=== PATIENT | female | born 1945 | race Caucasian/White ===

== ENCOUNTER 2016-12-25 07:27 | Day surgery (SDC) | payer OTHER ==
[2016-12-22 17:59] VITALS: BMI 29.2
[2016-12-25] MEDS ORDERED: ceFAZolin SODIUM 1 GM VIAL ONE (07:58)
[2016-12-25] MEDS ORDERED: PROPOFOL 20 ML ONE (07:58)
[2016-12-25] MEDS ORDERED: LIDOCAINE HCL/PF 2% SDV 5ML VIAL ONE (07:58)
[2016-12-25] MEDS ORDERED: MIDAZOLAM HCL 2 MG/2 ML SINGLE DOSE VIAL ONE (07:58)
[2016-12-25] MEDS ORDERED: DESFLURANE GAS 240 ML BOTTLE IH ONE (08:00)
[2016-12-25] MEDS ORDERED: ROCURONIUM BROMIDE 50 MG/5 ML VIAL ONE ×2 (08:58→09:26)
[2016-12-25] MEDS ORDERED: ceFAZolin SODIUM 1 GM VIAL IVPB ONE (09:05)
[2016-12-25] MEDS ORDERED: DEXAMETHASONE SOD PHOSPHATE 4 MG/1 ML VIAL ONE (09:26)
[2016-12-25] MEDS ORDERED: GLYCOPYRROLATE 0.2 MG/1 ML VIAL ONE (11:05)
[2016-12-25] MEDS ORDERED: NEOSTIGMINE METHYLSULFATE 0.5 MG/ML - 10 ML MDV ONE (11:06)
[2016-12-25] MEDS: HYDROmorphone HCL CARPU-JECT 1 MG/1 ML DISP.SYRIN IVPUSH PRN ×4 (11:22→11:52)
[2016-12-25] MEDS ORDERED: ONDANSETRON 4 MG/2 ML VIAL IVPUSH PRN (11:23)
[2016-12-25] MEDS ORDERED: HYDROmorphone HCL CARPU-JECT 2 MG/1 ML DISP.SYRIN ONE ×2 (11:27→11:45)
[2016-12-25] MEDS ORDERED: ACETAMINOPHEN INJECTION 100 ML IVPB ONE (11:42)
[2016-12-25] MEDS: ACETAMINOPHEN 1000 MG/100 ML VIAL (NON FORMULARY) IVPB PRN ×2 (12:00→21:15)
[2016-12-25] MEDS ORDERED: ceFAZolin SODIUM 1 GM VIAL IVPB SCH (12:00)
[2016-12-25] MEDS ORDERED: HYDROmorphone *PCA* 10MG/50ML DISP.SYRIN PCA ONE (12:09)
[2016-12-25] MEDS ORDERED: MAGNESIUM HYDROX 2400MG/30ML ORAL SUSPENSION 30 ML CUP PO PRN (12:15)
[2016-12-25] MEDS ORDERED: HYDROmorphone *PCA* 10MG/50ML DISP.SYRIN PCA SCH (12:15)
--- NOTE | 2016-12-25 12:37 | OP ---
Operative Note - Note: Operative Date: 12/25/16 Pre-Operative Diagnosis: painful hardware bilateral hips Operation: Right hip removal of internal fixator, Left hip removal of cannulated screws Post-Operative Diagnosis: Same as Pre-op Surgeon: Alex Valderrama I Glass Sander Belt: Juliana Christy Anesthesiologist/RAIL CAR DRIVER: Shanae See Anesthesia: General Specimens Removed: Right hip IM nail and screw, Left hip cannulated screws X3 Estimated Blood Loss (mls): 75 Drains & Tubes with Location: Right hip Fluid Volume Replaced (mls): 1,000 Operative Report Dictated: Yes
--- NOTE | 2016-12-25 12:39 | SURG ---
Surgery Waste Handling Technician Note Waste Handling Technician: Juliana Christy PA-C Date of Service: 12/25/16 Diagnosis: Painful hardware bilateral hips Procedure: Right hip removal of internal fixator, Left hip removal of cannulated screws I was present for the entirety of the operative procedure. For further detail, please refer to operative report. Visit type - Case Type Case Type: Scheduled Admission - Emergency Emergency Visit: No - New patient This patient is new to me today: Yes Date on this admission: 12/25/16
[2016-12-25] MEDS ORDERED: LORazepam 2 MG/ML SDV VIAL IVPUSH PRN (12:54)
[2016-12-25] MEDS: LACTATED RINGERS SOLUTION 1,000 ML IV SCH ×2 (13:30→22:50)
--- NOTE | 2016-12-25 13:52 | PN ---
Teaching Attending Note Name of Resident: Basilio Moncada ATTENDING PHYSICIAN STATEMENT I saw and evaluated the patient. I reviewed the resident's note and discussed the case with the resident. I agree with the resident's findings and plan as documented. SUBJECTIVE: OBJECTIVE: Vital Signs Period Temp Pulse Resp BP Sys/Gomez Pulse Ox Last 24 Hr 98.0 F-98.0 F 62-72 16-20 93-163/52-87 96-100 Home Medications Medication Instructions Recorded Acetaminophen [Tylenol] 650 mg PO PRN PRN 12/25/16 Aspirin [Aspirin EC] 81 mg PO DAILY 12/25/16 Carvedilol [Coreg] 6.25 mg PO BID 12/25/16 Citalopram Hydrobromide [Celexa -] 40 mg PO DAILY 12/25/16 Clopidogrel Bisulfate [Plavix -] 75 mg PO DAILY 12/25/16 Fentanyl 50 mcg TD ASDIR 12/25/16 Hydralazine HCl [Apresoline -] 25 mg PO DAILY 12/25/16 Levetiracetam [Keppra -] 500 mg PO BID 12/25/16 Magnesium Hydrox 2400MG/30Ml [Milk 30 ml PO PRN 12/25/16 of Magnesia -] Morphine 15 mg PO BID 12/25/16 Ondansetron HCl [Zofran] 4 mg PO PRN PRN 12/25/16 Protonix - 40 mg PO DAILY 12/25/16 Trazodone HCl [Desyrel -] 2 cap PO HS 12/25/16 Laboratory Tests 12/25/16 12/25/16 07:46 07:46 Blood Type A POSITIVE A POSITIVE Antibody Screen Negative ASSESSMENT AND PLAN:
--- NOTE | 2016-12-25 14:30 | CONSULT ---
Consultation: REQUESTING PROVIDER: CONSULT REQUEST: We have been asked to medically evaluate this patient for management of medical co-morbid conditions post-op HISTORY OF PRESENT ILLNESS: 71 yo F with PMHx of CAD(s/p stents), Hep C, Seizure disorder, colon ca. and HTN presents for removal of hardware. She states for quite some time she has had this pain in her left hip and the desicion was made to remove hardware. She does not mention any recent infection. Her comorbid conditions have been well managed according to her. She mentions that her Morphine was recently reduced and would like to go back to previous dosage. She denies CP,VICTORIA,SOB, palpitations , fever, chill, n/v. PMHx:As above. PSX:hemicolectomy, multiple lysis of adhesions, hip and back surgery Social Hx:correction resident. smoke: 100 pack yr history Drink : h/o abuse not current drinker Drugs: denies REVIEW OF SYSTEMS: CONSTITUTIONAL: Absent: fever, chills, diaphoresis, generalized weakness, malaise, loss of appetite, weight change HEENT: Absent: rhinorrhea, nasal congestion, throat pain, throat swelling, difficulty swallowing, mouth swelling, ear pain, eye pain, visual changes CARDIOVASCULAR: Absent: chest pain, syncope, palpitations, irregular heart rate, lightheadedness , peripheral edema RESPIRATORY: Absent: cough, shortness of breath, dyspnea with exertion, orthopnea, wheezing, stridor, hemoptysis GASTROINTESTINAL: Absent: abdominal pain, abdominal distension, nausea, vomiting, diarrhea, constipation, melena, hematochezia GENITOURINARY: Absent: dysuria, frequency, urgency, hesitancy, hematuria, flank pain, genital pain MUSCULOSKELETAL: joint swelling, back pain Absent: myalgia, arthralgia, , neck pain SKIN: Absent: rash, itching, pallor HEMATOLOGIC/IMMUNOLOGIC: Absent: easy bleeding, easy bruising, lymphadenopathy, frequent infections ENDOCRINE: Absent: unexplained weight gain, unexplained weight loss, heat intolerance, cold intolerance NEUROLOGIC: Absent: headache, focal weakness or paresthesias, dizziness, unsteady gait, seizure, mental status changes, bladder or bowel incontinence PSYCHIATRIC: Absent: anxiety, depression, suicidal or homicidal ideation, hallucinations. PHYSICAL EXAMINATION Vital Signs - 24 hr 12/25/16 12/25/16 12/25/16 08:11 08:15 11:19 Temperature 98.0 F 98.0 F Pulse Rate 69 71 Respiratory 20 18 Rate Blood Pressure 137/71 163/87 O2 Sat by Pulse 96 99 Oximetry (%) 12/25/16 12/25/16 12/25/16 11:35 11:50 12:05 Temperature Pulse Rate 72 68 68 Respiratory 16 17 16 Rate Blood Pressure 156/70 157/74 161/79 O2 Sat by Pulse 100 99 99 Oximetry (%) 12/25/16 12/25/16 12/25/16 12:15 12:20 12:35 Temperature Pulse Rate 70 70 63 Respiratory 16 16 16 Rate Blood Pressure 146/63 146/63 103/57 O2 Sat by Pulse 99 98 Oximetry (%) 12/25/16 12/25/16 12/25/16 12:45 12:50 13:05 Temperature Pulse Rate 62 62 69 Respiratory 16 16 17 Rate Blood Pressure 93/52 93/52 97/50 O2 Sat by Pulse 98 98 Oximetry (%) 12/25/16 12/25/16 12/25/16 13:20 13:30 14:04 Temperature 98.5 F 98.5 F Pulse Rate 68 66 71 Respiratory 16 16 16 Rate Blood Pressure 103/60 120/53 117/71 O2 Sat by Pulse 98 Oximetry (%) GENERAL: AAOx3, NAD HEAD: NC/AT EYES:PERRLA,EOMI, sclera anicteric, conjunctiva clear. No lid lag. EARS, NOSE, THROAT: Moist mucous membranes. NECK: supple, NO JVD LUNGS:CTAB, No wheezes, and no crackles. No accessory muscle use. HEART: RRR, normal S1 and S2 NO M/G/R ABDOMEN: Soft, nontender, not distended, decreased bowel sounds, ventral surgical scars , no guarding, no rebound, no masses. No hepatomegaly or splenomegaly. MUSCULOSKELETAL: decreased ROM of left hip. Dressing appears clean and dry. No CVA tenderness. UPPER EXTREMITIES: 2+ pulses, warm, well-perfused. No cyanosis. No clubbing. Cap refill <2 seconds. No peripheral edema. LOWER EXTREMITIES: 2+ pulses, warm, well-perfused. No calf tenderness. No peripheral edema. NEUROLOGICAL: Cranial nerves II-XII intact. Normal speech. PSYCHIATRIC: lethargic SKIN: Warm, dry, normal turgor, no rashes or lesions noted. Laboratory Results - last 24 hr 12/25/16 12/25/16 07:46 07:46 Blood Type A POSITIVE A POSITIVE Antibody Screen Negative Active Medications Generic Name Dose Route Start Last Admin Trade Name Debbie PRN Reason Stop Dose Admin Acetaminophen 1,000 mg 12/25/16 11:24 12/25/16 12:00 Ofirmev Injection - IVPB 1,000 mg Q6H PRN Administration FEVER OR PAIN Aspirin 81 mg 12/26/16 10:00 Ecotrin - PO DAILY APURVA Carvedilol 6.25 mg 12/25/16 22:00 Coreg - PO BID APURVA Cefazolin Sodium 1 gm 12/25/16 12:00 Ancef - IVPB Q8H-IV APURVA Citalopram Hydrobromide 40 mg 12/26/16 10:00 Celexa - PO DAILY APURVA Clopidogrel Bisulfate 75 mg 12/26/16 10:00 Plavix - PO DAILY APURVA Hydralazine HCl 25 mg 12/26/16 10:00 Apresoline - PO DAILY APURVA Hydromorphone HCl 0.2 mg 12/25/16 12:15 Dilaudid Adult Care Manager - HIRED HELP 01/01/17 12:10 HIRED HELP APURVA Protocol Lactated Ringer's 1,000 mls @ 125 mls/hr 12/25/16 11:30 12/25/16 13:30 Lactated Ringers Solution IV 0 mls ASDIR APURVA Administration Levetiracetam 500 mg 12/25/16 22:00 Keppra - PO BID APURVA Lorazepam 1 mg 12/25/16 12:54 Ativan Injection - IVPUSH 12/26/16 12:08 Q6H PRN ANXIETY Magnesium Hydroxide 30 ml 12/25/16 12:15 Milk Of Magnesia - PO PRN PRN Ondansetron HCl 4 mg 12/25/16 11:23 Zofran Injection IVPUSH Q6H PRN NAUSEA AND/OR VOMITING Pantoprazole Sodium 40 mg 12/26/16 10:00 Protonix - PO DAILY APURVA Trazodone HCl 100 mg 12/25/16 22:00 Desyrel - PO HS [facility] ASSESSMENT/PLAN: 71 yo F with PMHx of CAD(s/p stents), Hep C, Seizure disorder and HTN presents for removal of hardware admitted for 23hr satellite admission. Dispo: We will continue to follow the patient. Thank you for this consultative opportunity. Problem List - Problems (1) Right hip pain Assessment/Plan: s/p removal of hardware. * HIRED HELP pump for pain control. (2) Chronic pain Assessment/Plan: Chronic low back pain. * HIRED HELP pump for pain. (3) HTN (hypertension) Assessment/Plan: Will continue home regimen with hold parameters. * Carvedilol (Coreg -) 6.25 mg PO BID * Hydralazine HCl (Apresoline -) 25 mg PO (4) Seizure disorder Assessment/Plan: NO seizure activity for 6yrs * Continue Keppra 500mg BID (5) CAD (coronary artery disease) Assessment/Plan: * Aspirin (Ecotrin -) 81 mg PO DAILY * Clopidogrel Bisulfate (Plavix -) 75 mg PO DAILY Visit type - Emergency Visit Emergency Visit: Yes Care time: The patient presented to the Emergency Department on the above date and was hospitalized for further evaluation of their emergent condition. - New Patient This patient is new to me today: Yes Date on this admission: 12/25/16 - Critical Care Critical Care patient: No
[2016-12-25] MEDS ORDERED: PT OWN MED DRAWER 7, Y5N ONE (17:00)
[2016-12-25] MEDS: CEFAZOLIN 1 GM in DEXTROSE 5%-WATER - 50 ML IVPB SCH (18:04)
[2016-12-25] MEDS: traZODone HCL 50 MG TABLET (FP) PO SCH (21:10)
[2016-12-25] MEDS: CARVEDILOL 6.25 MG TABLET (FP) PO SCH (21:10)
[2016-12-25] MEDS: levETIRAcetam 500 MG TABLET (FP) PO SCH (21:10)
[2016-12-26] MEDS ORDERED: HYDROmorphone *PCA* 10MG/50ML DISP.SYRIN PCA SCH ×2 (00:20→00:30)
[2016-12-26] MEDS: CEFAZOLIN 1 GM in DEXTROSE 5%-WATER - 50 ML IVPB SCH ×2 (01:25→12:26)
[2016-12-26] MEDS: LACTATED RINGERS SOLUTION 1,000 ML IV SCH (06:50)
--- NOTE | 2016-12-26 09:01 | PN ---
Physical Exam: SUBJECTIVE: Patient seen and examined. States she is uncomfortable and in pain, but visibly in no acute distress. Postop, she denies fevers, chills, CP, SOB. She had 1BM yesterday. OBJECTIVE: Vital Signs Period Temp Pulse Resp BP Sys/Gomez Pulse Ox Last 24 Hr 97.5 F-99.1 F 20-89 16-84 93-163/50-87 98-100 GEN: AAOx3, NAD, Lying comfortably, does not appear to be in pain HEENT: PERRLA, EOMi CV: S1, S2, RRR LUNG: mild bibasilar crackles ABD: Soft, NT, ND, normoactive BS MSK: Bilateral hip wound overlying abd pads, no swelling or purulent material, intact sensation and +2 pulses throughout BLLE NEURO: No MSK or sensation deficits Laboratory Last Values WBC 7.6 K/mm3 (4.0-10.0) 12/26/16 08:40 RBC 2.85 M/mm3 (3.60-5.2) L 12/26/16 08:40 Hgb 8.7 GM/dL (10.7-15.3) L 12/26/16 08:40 Hct 26.1 % (32.4-45.2) L 12/26/16 08:40 MCV 91.5 fl (80-96) 12/26/16 08:40 MCH 30.7 pg (25.7-33.7) 12/26/16 08:40 MCHC 33.5 g/dl (32.0-36.0) 12/26/16 08:40 RDW 13.1 % (11.6-15.6) 12/26/16 08:40 Plt Count 103 K/MM3 (134-434) L 12/26/16 08:40 MPV 8.4 fl (7.5-11.1) 12/26/16 08:40 Neutrophils % 60.2 % (42.8-82.8) 12/26/16 08:40 Lymphocytes % 25.8 % (8-40) 12/26/16 08:40 Monocytes % 8.7 % (3.8-10.2) 12/26/16 08:40 Eosinophils % 4.7 % (0-4.5) H 12/26/16 08:40 Basophils % 0.6 % (0-2.0) 12/26/16 08:40 Sodium 138 mmol/L (136-145) 12/26/16 08:40 Potassium 3.8 mmol/L (3.5-5.1) 12/26/16 08:40 Chloride 101 mmol/L (98-107) 12/26/16 08:40 Carbon Dioxide 31 mmol/L (21-32) 12/26/16 08:40 Anion Gap 6 (8-16) L 12/26/16 08:40 BUN 13 mg/dL (7-18) 12/26/16 08:40 Creatinine 0.9 mg/dL (0.55-1.02) 12/26/16 08:40 Creat Clearance w eGFR > 60 (>60) 12/26/16 08:40 Random Glucose 110 mg/dL (74-106) H 12/26/16 08:40 Calcium 7.7 mg/dL (8.5-10.1) L 12/26/16 08:40 Total Bilirubin 0.4 mg/dL (0.2-1.0) 12/26/16 08:40 AST 13 U/L (15-37) L 12/26/16 08:40 ALT 13 U/L (12-78) 12/26/16 08:40 Alkaline Phosphatase 39 U/L (45-117) L 12/26/16 08:40 Total Protein 5.2 g/dl (6.4-8.2) L 12/26/16 08:40 Albumin 2.8 g/dl (3.4-5.0) L 12/26/16 08:40 Blood Type A POSITIVE 12/25/16 07:46 Antibody Screen Negative 12/25/16 07:46 Active Medications Generic Name Dose Route Start Last Admin Trade Name Freq PRN Reason Stop Dose Admin Acetaminophen 1,000 mg 12/25/16 11:24 12/25/16 21:15 Ofirmev Injection - IVPB 1,000 mg Q6H PRN Administration FEVER OR PAIN Aspirin 81 mg 12/26/16 10:00 Ecotrin - PO DAILY APURVA Carvedilol 6.25 mg 12/25/16 22:00 12/25/16 21:10 Coreg - PO 6.25 mg BID APURVA Administration Citalopram Hydrobromide 40 mg 12/26/16 10:00 Celexa - PO DAILY APURVA Clopidogrel Bisulfate 75 mg 12/26/16 10:00 Plavix - PO DAILY APURVA Hydralazine HCl 25 mg 12/26/16 10:00 Apresoline - PO DAILY APURVA Hydromorphone HCl 10 mg 12/26/16 00:30 12/26/16 00:36 Dilaudid Umbrella Tipper - SIGNAL TOWER OPERATOR 10 mg SIGNAL TOWER OPERATOR APURVA Administration Protocol Lactated Ringer's 1,000 mls @ 125 mls/hr 12/25/16 11:30 12/26/16 06:50 Lactated Ringers Solution IV 125 mls/hr ASDIR APURVA Administration Cefazolin Sodium 1 gm/ 50 mls @ 100 mls/hr 12/25/16 18:00 12/26/16 01:25 Dextrose IVPB 100 mls/hr Q8H-IV APURVA Administration Levetiracetam 500 mg 12/25/16 22:00 12/25/16 21:10 Keppra - PO 500 mg BID APURVA Administration Lorazepam 1 mg 12/25/16 12:54 Ativan Injection - IVPUSH 12/26/16 12:08 Q6H PRN ANXIETY Magnesium Hydroxide 30 ml 12/25/16 12:15 Milk Of Magnesia - PO PRN PRN Ondansetron HCl 4 mg 12/25/16 11:23 Zofran Injection IVPUSH Q6H PRN NAUSEA AND/OR VOMITING Pantoprazole Sodium 40 mg 12/26/16 10:00 Protonix - PO DAILY APURVA Trazodone HCl 100 mg 12/25/16 22:00 12/25/16 21:10 Desyrel - PO 100 mg HS APURVA Administration ASSESSMENT/PLAN: Pt is a 71yo F with PMHx of CAD, Hep C, Epilepsy, HTN, with chronic hip pain who presented to the OR for bilateral hip hardware removal. POD#1. We were consulted to manage her chronic medical problems # Bilateral Hip Pain - POD#1 from bilateral hardware removal, no post-op problems, continues to have hip pain, pt follows with pain mgmt physician at [facility] - Spoke to Dr. Dimitri Gonzalez ([phone]), pain mgmt physician at [facility], recommended stopping Fentanyl patch, increasing Morphine ER to 30mg BID, adding Morphine IR 15mg Q8H PRN - After controlling her pain, can d/c plan back to [facility] - Postop Bactrim DS x1wk # Normocytic Anemia - likely 2/2 acute blood loss from surgery, repeat H/H this afternoon # Mild Thrombocytopenia - no bleeding taylor, unsure of baseline, continue to monitor, repeat H/H this afternoon # CAD - s/p stents, will hold Plavix/ASA for 4 days as per surgery request # HTN - well controlled with Coreg 6.25mg BID and Hydralazine 25mg QD # Epilepsy - Continue Keppra 500mg BID, no seizures in 5-6 years # MDD - Continue Celexa, Trazodone, mood stable # FEN - No IVF, eating well, elec wnl, regular diet # PPx - HSQ TID, Protonix 40mg QD, will get PT to see # Dispo - Ok to d/c to facility tmrw if pain improves with new regimen. Will likely need outpatient CBC in 1 week to monitor PLT count and H/H Thank you for this Consultive Opportunity d/w Dr Patel Dave MD - PGY1 Internal Medicine Visit type - Emergency Visit Emergency Visit: No - New Patient This patient is new to me today: No - Critical Care Critical Care patient: No - Discharge Referral Referred to [facility] Med [facility] No
[2016-12-26 09:20] LABS: BASOPHIL 0.6 % (0-2.0); EOSINOPHIL 4.7 % (0-4.5); MCH 30.7 pg (25.7-33.7); MCHC 33.5 g/dl (32.0-36.0); MEAN CELL VOLUME 91.5 fl (80-96); MEAN PLT VOLUME 8.4 fl (7.5-11.1); NEUTROPHILS 60.2 % (42.8-82.8); PLATELET COUNT 103 K/MM3 (134-434); RDW 13.1 % (11.6-15.6); WHITE BLOOD COUNT 7.6 K/mm3 (4.0-10.0)
[2016-12-26] MEDS ORDERED: PT OWN MED DRAWER 7, Y5N ONE (09:43)
[2016-12-26] MEDS: hydrALAZINE HCL 25 MG TABLET (FP) PO SCH (09:47)
[2016-12-26] MEDS: PANTOPRAZOLE 40 MG TABLET (FP) PO SCH (09:47)
[2016-12-26] MEDS: levETIRAcetam 500 MG TABLET (FP) PO SCH ×2 (09:47→22:05)
[2016-12-26] MEDS: CITALOPRAM HYDROBROMIDE 20 MG TABLET (FP) PO SCH (09:47)
[2016-12-26] MEDS: CARVEDILOL 6.25 MG TABLET (FP) PO SCH ×2 (09:47→22:05)
--- NOTE | 2016-12-26 09:47 | PATH ---
Surgical Pathology Report Patient Name: LESLIE CHOPRA [facility]. Rec. #: [id number] /Age/Gender: 1945 (Age: 71) / F Account: [id number] Location: [address] [place] [address] Taken: 12/25/2016 Received: 12/25/2016 Reported: 12/26/2016 Physicians: Alex Valderrama M.D. Specimen(s) Received A: RIGHT HIP NAIL (HARDWARE) AND SCREWS B: LEFT HIP HARDWARE Clinical History Painful internal fixation right and left hip Final Diagnosis A. HARDWARE, HIP, LEFT, REMOVAL: SURGICAL HARDWARE, MACROSCOPIC DIAGNOSIS. B HARDWARE, HIP, RIGHT, REMOVAL: SURGICAL HARDWARE, MACROSCOPIC DIAGNOSIS. Electronically Signed Alycia Hernandez M.D. Gross Description A. Received fresh labeled "left hip hardware," are 3 ruggiero metallic screws ranging from 8.3-9.3 cm in length. No soft tissue is present. No sections are submitted, gross only. B. Received fresh labeled "right hip hardware," is an 18 cm in length rivera metallic ilz. Also received within the same container is an 8.3 cm in length rivera metallic screw. No soft tissue is present. No sections are submitted, gross only. 12/25/201612/25/2016
[2016-12-26 09:53] LABS: CALCIUM 7.7 mg/dL (8.5-10.1)
[2016-12-26 09:58] LABS: ALBUMIN 2.8 g/dl (3.4-5.0); ALK PHOS 39 U/L (45-117); ANION GAP 6 (8-16); BILIRUBIN,TOTAL 0.4 mg/dL (0.2-1.0); CO2 31 mmol/L (21-32); CREATININE 0.9 mg/dL (0.55-1.02); GLUCOSE,RANDOM 110 mg/dL (74-106); SGOT/AST 13 U/L (15-37); SGPT/ALT 13 U/L (12-78); TOT PROT 5.2 g/dl (6.4-8.2)
[2016-12-26] MEDS ORDERED: ASPIRIN COATED 81 MG TABLET.EC PO SCH (10:00)
[2016-12-26] MEDS ORDERED: CLOPIDOGREL BISULFATE 75 MG TABLET (FP) PO SCH (10:00)
--- NOTE | 2016-12-26 10:09 | PN ---
Progress Note (short form) - Note Progress Note: Anesthesia postop note 71 y/o F, s/p GA for removal of hardware bilateral hips POD#1, vss, aaox3, pain well controlled Will d/c nanotechnician when tolerating po No anesthesia complications.
[2016-12-26] MEDS ORDERED: FENTANYL PATCH WASTE MC PRN (12:09)
[2016-12-26] MEDS ORDERED: morphine SULFATE IMMEDIATE RELEASE 30 MG TAB PO PRN ×2 (12:15→12:24)
[2016-12-26] MEDS ORDERED: fentaNYL 75mcg/hr PATCH.TD72 TD SCH (12:15)
[2016-12-26] MEDS ORDERED: morphine SO4 SUSTAINED ACTING 15 MG TABLET.SA PO SCH (12:15)
--- NOTE | 2016-12-26 13:58 | OP ---
DATE OF OPERATION: 12/25/2016 PREOPERATIVE DIAGNOSES: 1. Painful internal fixation material right hip. 2. Painful internal fixation material left hip. SURGEON: Alex Valderrama MD ANESTHESIA: General. PROCEDURE: 1. Removal of internal fixation from the right hip. 2. Removal of internal fixation from the left hip. DESCRIPTION OF PROCEDURE: After induction of general anesthesia, the patient was placed on her left side 45-degree tilt to the horizontal, and the entire hip, leg, thigh, and gluteal area were now prepped and draped in a free manner. A 10-cm incision was made over the gluteal area. It was deepened through the subcutaneous tissue down through the fascia, which was incised in line with the skin incision. Using sharp dissection through the fibrous tissue, which was extremely excessive, I was finally able to identify the head of the IM nail that was used in the intertrochanteric fixation. The set screw was now released using the appropriate instruments. The nail rodriguez now was applied to the nail. At this point now, attention was addressed to the lag screw. Another incision was made at the site of the insertion of the lag screw. It was deepened through the subcutaneous tissue down to the fascia, which was incised in line with the skin incision. Again, dissecting through heavy scar tissue, I was able to identify now the head of the lag screw. Using the appropriate instrument for that particular lag screw, it was retrieved. Following retrieval of the lag screw now, it was possible to retrieve the IM nail from the proximal incision. Irrigation was done with normal saline to both incisions. Hemostasis was obtained, and a Hemovac was left in the proximal wound. The wound was closed in several layers, Vicryl No. 1 for the fascia, 2-0 for the subcutaneous tissue, and etelvina for the skin. A dressing was applied. All of the prepping now was removed. The patient now was tilted to the right side with the left side at 45 degrees to the horizontal, and the entire left leg now was prepped and draped in the usual free manner. The incision that was used for placing the cannulated screws in the left hip, which were told as 3, was now reopened. It was deepened through the subcutaneous tissue down to the fascia, which was incised in line with the skin incision. Using sharp dissection through the fibrous tissue, I was finally able to identify the head of the 3 screws that were used for the internal fixation. Using the appropriate screwdriver, one after the other, all 3 screws now were removed from the depth of the incision. Irrigation was done with normal saline. Hemostasis was obtained and the wound closed in several layers of Vicryl, 2-0 for the subcutaneous tissue and etelvina for the skin. A dressing was applied. The patient tolerated both procedures and left the operating room in excellent condition. Yee LEMONS/[id number]
--- NOTE | 2016-12-26 14:10 | PN ---
Teaching Attending Note Name of Resident: Jaden Dave ATTENDING PHYSICIAN STATEMENT I saw and evaluated the patient. I reviewed the resident's note and discussed the case with the resident. I agree with the resident's findings and plan as documented. SUBJECTIVE:c/o severe B/L hip pain. R>L. no relief with police liaison pump. states she has been in chronic pain for months. fentanyl patch was decreased by pain management after complaining of worsening pain. denies CP, SOB, fever, chills, N /V/C/D. last BM yesterday OBJECTIVE: Last Vital Signs Temp Pulse Resp BP Pulse Ox 98.6 F 68 20 107/64 97 12/26/16 05:53 12/26/16 05:53 12/26/16 05:53 12/26/16 05:53 12/26/16 09:00 General NAD CV S1 S2 RRR no murmur/rub/gallop Lungs CTA B/L no wheezing/rales/rhonchi Extremities no bone point tenderness L hip. limited ROM of hip due to pain. would not allow my exam of R hip ASSESSMENT AND PLAN: 71yo F with PMH CAD s/p stents, HCV, colon ca, seizure and HTN and B/L hip replacement came for surgery for removal of hardware 1. Intractable B/L hip pain- s/p removal of hardware both hips. 12/25. continues to be in excruciating pain. no relief with dialudid police liaison pump. will place call out to pain managmeent specialist to determine why patch was decreased. will re-start patch when confirmed dosing and start long acting pain management with morphine and attempt to wean off pump. if her pain mangement specialist does no come to [facility] will call someone to evaluate as this will likely require their assistance in managing 2. Anemia- no signs of bleeding. minimal blood loss reported during surgery. repeat Hgb in evening. check iron studies. no indication for txn 3. CAD s/p stents- hold dual antiplatelet therapy x3 days. 4. HTN- controlled. cont home management 5. Seizure- no seizure like activity. cont keppra 6. colon ca 7. DVT ppx- hep sq 8. PT assessment. will likely require [facility] when medically optimized
[2016-12-26] MEDS: HEPARIN NA (PORCINE) 5,000 UNITS/ML 1ML VIAL SQ SCH ×3 (15:03→23:05)
[2016-12-26] MEDS: SULFAMETHOXAZOLE/TRIMETHOPRIM 800MG/160MG D.S. TABLET PO SCH (15:06)
[2016-12-26 16:24] LABS: MCH 30.8 pg (25.7-33.7); MCHC 33.8 g/dl (32.0-36.0); MEAN CELL VOLUME 91.3 fl (80-96); MEAN PLT VOLUME 9.2 fl (7.5-11.1); PLATELET COUNT 99 K/MM3 (134-434); WHITE BLOOD COUNT 6.7 K/mm3 (4.0-10.0)
[2016-12-26] MEDS: morphine SO4 SUSTAINED ACTING 15 MG TABLET.SA PO SCH (22:04)
[2016-12-26] MEDS: traZODone HCL 50 MG TABLET (FP) PO SCH (22:05)
[2016-12-27 08:11] VITALS: BP 118/65; PULSE 68; TEMP 98.2
[2016-12-27] MEDS: levETIRAcetam 500 MG TABLET (FP) PO SCH (09:43)
[2016-12-27] MEDS: CARVEDILOL 6.25 MG TABLET (FP) PO SCH (09:43)
[2016-12-27] MEDS: CITALOPRAM HYDROBROMIDE 20 MG TABLET (FP) PO SCH (09:43)
[2016-12-27] MEDS: morphine SO4 SUSTAINED ACTING 15 MG TABLET.SA PO SCH (09:43)
[2016-12-27] MEDS: hydrALAZINE HCL 25 MG TABLET (FP) PO SCH (09:43)
[2016-12-27] MEDS: SULFAMETHOXAZOLE/TRIMETHOPRIM 800MG/160MG D.S. TABLET PO SCH (09:43)
[2016-12-27] MEDS: PANTOPRAZOLE 40 MG TABLET (FP) PO SCH (09:43)
[2016-12-27] MEDS ORDERED: FENTANYL PATCH WASTE TD PRN (10:48)
[2016-12-27] MEDS ORDERED: fentaNYL 25mcg/hr PATCH.TD72 TD ONE (11:15)
--- NOTE | 2016-12-27 11:46 | PN ---
Teaching Attending Note Name of Resident: Jaden Dave ATTENDING PHYSICIAN STATEMENT I saw and evaluated the patient. I reviewed the resident's note and discussed the case with the resident. I agree with the resident's findings and plan as documented. SUBJECTIVE:continues to have pain. only relieved with dilaudid pump. denies CP, SOB, fever, chills, N/v/C/D OBJECTIVE: Last Vital Signs Temp Pulse Resp BP Pulse Ox 98.2 F 68 20 118/65 96 12/27/16 08:10 12/27/16 08:10 12/27/16 08:10 12/27/16 08:10 12/26/16 21:00 General NAD Extremities no bone point tenderness L hip. limited ROM of hip due to pain. would not allow my exam of R hip ASSESSMENT AND PLAN: 71yo F with PMH CAD s/p stents, HCV, colon ca, seizure and HTN and B/L hip replacement came for surgery for removal of hardware 1. Intractable B/L hip pain- s/p removal of hardware both hips. 12/25. claims to have pain reduced by dilaudid blow pit operator pump howver pump has been turned off. resident spoke with pain specialist yesterday who states pt has been drug seeking and is attempting to bring down pain medication. will cont morphine at his request. d/c patch. will need bactrim per orthopedic. OOB as tolerated. will need orthopedic follow up in 1 week. 2. Anemia- no signs of bleeding. minimal blood loss reported during surgery. Hgb stable. should have monitored as outpatinet. iron studies pending. no indication for txn 3. CAD s/p stents- hold dual antiplatelet therapy x3 days. 4. HTN- controlled. cont home management 5. Seizure- no seizure like activity. cont keppra 6. colon ca 7. DVT ppx- hep sq 8.d/c to [facility]
[2016-12-28 06:06] LABS: SERUM IRON 29 ug/dL (27-139); TOTAL IRON BINDING CAPACITY 207 ug/dL (250-450); UIBC 178 ug/dL (118-369)
== END 2016-12-27 11:45 ==
LOC: JASUSAT 07:27 → SUATTDRO 07:27 → J6S 13:39 → JASUSAT 12-27 11:45
PROVIDERS: ATTEND Orthopaedic Surgery
PROC: 0SPB04Z Removal of Internal Fixation Device from Left Hip Joint, Open Approach (ICD-10-PCS; principal; 2016-12-25 08:00)
PROC: 0SP904Z Removal of Internal Fixation Device from Right Hip Joint, Open Approach (ICD-10-PCS; 2016-12-25 08:00)
DX: T84.84XA Pain due to internal orthopedic prosthetic devices, implants and grafts, initial encounter (principal); Y83.8 Other surgical procedures as the cause of abnormal reaction of the patient, or of later complication, without mention of misadventure at the time of the procedure; Y92.9 Unspecified place or not applicable; I10 Essential (primary) hypertension; I25.10 Atherosclerotic heart disease of native coronary artery without angina pectoris; Z95.5 Presence of coronary angioplasty implant and graft; B18.2 Chronic viral hepatitis C; G40.909 Epilepsy, unspecified, not intractable, without status epilepticus; Z85.038 Personal history of other malignant neoplasm of large intestine
CPT/HCPCS: 36415; 76000-TC; 80053; 82728; 83540; 83550; 85025; 85027; 86850; 86900; 86901; 88300-TC; 94760; 97116-GP; 97161-GP; J1644

== ENCOUNTER 2017-06-28 18:06 | Observation (INO) | payer OTHER ==
--- NOTE | 2017-06-28 18:42 | PDOC ---
History of Present Illness - General History Source: Patient, [facility]dc Records, Old Records Exam Limitations: No Limitations - History of Present Illness Initial Comments: 06/28/17 19:11 The patient is a 71 year old female with a past medical history of CAD(s/p stents), Hep C, Seizure disorder, colon cancer, and HTN BIBA from longterm with chest pain for 4 days. She reports that her pain has been intermittent since sunday but constant today. She describes her pain as left sided, shooting in sensation, radiating to her left axilla and superiorly to the left lateral aspect of her neck. She reports that her constant pain intermittently exacerbates for 30 seconds to 1 minutes. During her exacerbating episodes she reports associated diaphoresis and shortness of breath. Her pain is exacerbated when taking a deep breath. She notes that her current symptoms feel similar to those of her previous myocardial infarction. One month ago the patient had bilateral hip surgery. PSX:hemicolectomy, multiple lysis of adhesions, hip and back surgery Social Hx:skilled nursing resident. smoke: 100 pack yr history Drink : h/o abuse not current drinker Drugs: denies <Brenden Wyman - Last Filed: 06/28/17 22:55> <Hayden Bradley - Last Filed: 06/29/17 00:12> - General Chief Complaint: Chest Pain Stated Complaint: CHEST PAIN Time Seen by Provider: 06/28/17 18:30 Past History <Brenden Wyman - Last Filed: 06/28/17 22:55> - Past Medical History Anemia: No Asthma: No Cancer: Yes (colon) Cardiac Disorders: Yes (CARDIAC STENTS X 2 , [place]) CVA: No COPD: No CHF: No Dementia: No Diabetes: No GI Disorders: Yes (GERD) Disorders: No HTN: Yes Hypercholesterolemia: No Liver Disease: Yes (Hep C) Psychiatric Problems: Yes (MAJOR DEPRESSIVE DISODER,) Seizures: Yes Thyroid Disease: No Other medical history: PVD - Surgical History Abdominal Surgery: No Appendectomy: No Cardiac Surgery: No Cholecystectomy: No Lung Surgery: No Neurologic Surgery: No Orthopedic Surgery: Yes (ORIF daria hps) - Suicide/Smoking/Psychosocial Hx Smoking History: Never smoked Hx Alcohol Use: No Drug/Substance Use Hx: No Substance Use Type: None Hx Substance Use Treatment: No <Hayden Bradley - Last Filed: 06/29/17 00:12> - Past Medical History Allergies/Adverse Reactions: Allergies Allergy/AdvReac Type Severity Reaction Status Date / Time sumatriptan [From Imitrex] Allergy Severe Verified 06/28/17 18:22 sumatriptan succinate Allergy Severe Verified 06/28/17 18:22 [From Imitrex] nitroglycerin AdvReac Severe Verified 06/28/17 18:22 Home Medications: Ambulatory Orders Acetaminophen [Tylenol] 650 mg PO PRN PRN 12/25/16 Carvedilol [Coreg] 6.25 mg PO BID 12/25/16 Citalopram Hydrobromide [Celexa -] 40 mg PO DAILY 12/25/16 Magnesium Hydrox 2400MG/30Ml [Milk of Magnesia -] 30 ml PO PRN 12/25/16 Protonix - 40 mg PO DAILY 12/25/16 levETIRAcetam [Keppra -] 500 mg PO BID 12/25/16 traZODone HCL [Desyrel -] 2 cap PO HS 12/25/16 Diphenhydramine HCl [Benadryl -] 25 mg PO Q6H 06/28/17 Duloxetine HCl [Cymbalta] 60 mg PO DAILY 06/28/17 Melatonin 3 mg PO HS 06/28/17 Meloxicam [Mobic] 15 mg PO DAILY 06/28/17 Oxycodone HCl/Acetaminophen [Percocet 10-325 mg Tablet] 1 each PO TID 06/28/17 Tolterodine Tartrate [Detrol LA] 2 mg PO DAILY 06/28/17 Review of Systems - Review of Systems Able to Perform ROS?: Yes Comments:: 06/28/17 19:11 GENERAL/CONSTITUTIONAL: (+) Diaphoresis. No fever or chills. No weakness. HEAD, EYES, EARS, NOSE AND THROAT: No change in vision. No ear pain or discharge. No sore throat. GASTROINTESTINAL: No nausea, vomiting, diarrhea or constipation. GENITOURINARY: No dysuria, frequency, or change in urination. CARDIOVASCULAR: (+) chest pain and shortness of breath. RESPIRATORY: No cough, wheezing, or hemoptysis. MUSCULOSKELETAL: No joint or muscle swelling or pain. No neck or back pain. SKIN: No rash NEUROLOGIC: No headache, vertigo, loss of consciousness, or change in strength/ sensation. ENDOCRINE: No increased thirst. No abnormal weight change. HEMATOLOGIC/LYMPHATIC: No anemia, easy bleeding, or history of blood clots. ALLERGIC/IMMUNOLOGIC: No hives or skin allergy. <Brenden Wymna - Last Filed: 06/28/17 22:55> *Physical Exam - Vital Signs Last Vital Signs Temp Pulse Resp BP Pulse Ox 82 20 162/80 97 06/28/17 18:22 06/28/17 18:22 06/28/17 18:22 06/28/17 18:22 - Physical Exam Comments: 19:11 GENERAL: Awake, alert, and fully oriented, in no acute distress HEAD: No signs of trauma EYES: PERRLA, EOMI, sclera anicteric, conjunctiva clear ENT: Auricles normal inspection, hearing grossly normal, nares patent, oropharynx clear without exudates. Moist mucosa NECK: Normal ROM, supple, no lymphadenopathy, JVD, or masses LUNGS: Breath sounds equal, clear to auscultation bilaterally. No wheezes, and no crackles HEART: Regular rate and rhythm, normal S1 and S2, no murmurs, rubs or gallops. No anterior chest wall tenderness ABDOMEN: Soft, nontender, normoactive bowel sounds. No guarding, no rebound. No masses EXTREMITIES: Normal range of motion, no edema. No clubbing or cyanosis. No cords, erythema, or tenderness NEUROLOGICAL: Cranial nerves II through XII grossly intact. Normal speech, normal gait SKIN: Warm, Dry, normal turgor, no rashes or lesions noted. <Brenden Wyman - Last Filed: 06/28/17 22:55> - Vital Signs Last Vital Signs Temp Pulse Resp BP Pulse Ox 82 20 162/80 97 06/28/17 18:22 06/28/17 18:22 06/28/17 18:22 06/28/17 18:22 <Hayden Bradley - Last Filed: 06/29/17 00:12> Heart Score/ECG Review - ECG Impressions Comment:: 06/28/17 19:12 Sinus 77 Normal axis Baseline artifact No acute ST or T wave changes <Brenden Wyman - Last Filed: 06/28/17 22:55> ED Treatment Course - LABORATORY CBC & Chemistry Diagram: 06/28/17 19:40 06/28/17 19:17 - RADIOLOGY Radiograph Interpretation: 06/28/17 20:49 EXAM#: TYPE/EXAM: RESULT: [id number] RAD/CHEST X-RAY PORTABLE* HISTORY PROVIDED: Shortness of breath. A single frontal portable projection of the chest at 7:03 PM is submitted. The heart size is within normal limits. The lung ferrari are free of pulmonary infiltrates or pleural effusions. There is tortuosity and calcification of the thoracic aorta and degenerative changes of the thoracic spine. The patient is S/P left shoulder replacement. IMPRESSION: No acute disease. Reported By: Nikhil Espinoza MD 06/28/171948 HAYDEN BRADLEY Technologist: Artur Gonzalez Transcribed Date/Time: 06/28/171948 Terminal Gauger: Nikhil Espinoza Printed Date/Time: By: Signed by: Nikhil Espinoza Signed on: 28-Jun-2017 19:49 06/28/17 22:55 EXAM#: TYPE/EXAM: RESULT: [id number] CT/CHEST CTA HISTORY PROVIDED: Chest pain. TECHNIQUE: Sequential axial images were obtained from the thoracic inlet through the domes of the diaphragm following the administration of intravenous contrast material. CTA pulmonary embolism protocol was utilized, including coronal and oblique coronal MIP images. There is good opacification of the central pulmonary vasculature with no filling defects suspicious for pulmonary embolism. The lung ferrari are free of pulmonary masses, areas of acute consolidation or pleural effusions. No mediastinal masses, fluid collections or lymphadenopathy are identified. The heart is not enlarged. There is no evidence of thoracic aortic aneurysm or dissection. Evaluation of the upper abdomen demonstrates mild splenomegaly. The gallbladder is been removed. There is no evidence of acute pathology. There is no evidence of acute bony abnormalities. IMPRESSION: 1. No evidence of pulmonary embolism. 2. No acute pathology within the chest. Please see above discussion. Reported By: Nikhil Espinoza MD 06/28/172220 HAYDEN BRADLEY Technologist: Moisés Coleman Transcribed Date/Time: 06/28/172220 Terminal Gauger: Nikhil Espinoza Printed Date/Time: By: Signed by: Nikhil Espinoza Signed on: 28-Jun-2017 22:22 - Medications Given in the ED: ED Medications Discontinued Medications Generic Name Dose Route Start Last Admin Trade Name Debbie PRN Reason Stop Dose Admin Aspirin 324 mg 06/28/17 18:43 06/28/17 19:00 Asa - PO 06/28/17 18:44 324 mg ONCE ONE Administration Sodium Chloride 1,000 ml 06/28/17 18:43 06/28/17 19:04 Normal Saline - IV 06/28/17 18:44 1,000 ml ONCE ONE Administration <Brenden Wyman - Last Filed: 06/28/17 22:55> - LABORATORY CBC & Chemistry Diagram: 06/28/17 19:40 06/28/17 19:17 <Hayden Bradley - Last Filed: 06/29/17 00:12> Medical Decision Making - Medical Decision Making 06/28/17 18:59 a/p: 71yo female with cp -concern for ACS, but also for PE -hx of TX that felt similar to the last 4 days -hx of stents, however also had hip sx 4 weeks ago with b/l hip replacements -not on asa or anticoags per medication list in transfer -pt from [facility] -no cards in [place] -will check labs, trop, ekg, cta chest -will monitor and reassess -asa will be given in ED -received coreg 6.25mg prior to transfer from [facility] 06/28/17 21:49 initial trop negative pending CTA chest 06/28/17 22:[address] Abraham cta negative for PE 06/28/17 22:[address] payton who accept pt to service <Hayden Bradley - Last Filed: 06/29/17 00:12> *DC/Admit/Observation/Transfer - Attestations Scribe Attestion: 06/28/17 19:12 Documentation prepared by Brenden Wyman, acting as medical chief technician for Hayden Bradley DO. <Brenden Wyman - Last Filed: 06/28/17 22:55> - Discharge Dispostion Decision to Admit order: Yes - Attestations Physician Attestion: 06/28/17 22:58 I, Dr. Hayden Bradley DO, attest that this document has been prepared under my direction and personally reviewed by me in its entirety. I further attest, that it accurately reflects all work, treatment, procedures and medical decision -making performed by me. <Hayden Bradley - Last Filed: 06/29/17 00:12> Diagnosis at time of Disposition: Chest pain - Discharge Dispostion Condition at time of disposition: Fair
[2017-06-28] MEDS ORDERED: ASPIRIN 81 MG CHEWABLE TABLETS ONE (18:43)
[2017-06-28] MEDS ORDERED: ASPIRIN 81 MG CHEWABLE TABLETS PO ONE (18:43)
[2017-06-28] MEDS ORDERED: SODIUM CHLORIDE 0.9% 1000 ML INFUS.BAG IV ONE (18:43)
[2017-06-28 19:03] LABS: BASO % 1.3 % (0-2.0); EOS % 5.1 % (0-4.5); HEMATOCRIT 38.5 % (32.4-45.2); HEMOGLOBIN 12.7 GM/dL (10.7-15.3); LYMPH % 29.4 % (8-40); MCH 28.5 pg (25.7-33.7); MEAN CELL VOLUME 86.4 fl (80-96); MEAN PLT VOLUME 8.8 fl (7.5-11.1); NEUT % 56.2 % (42.8-82.8); PLATELET COUNT 177 K/MM3 (134-434); RBC 4.45 M/mm3 (3.60-5.2); RDW 14.7 % (11.6-15.6); WHITE BLOOD COUNT 7.7 K/mm3 (4.0-10.0)
[2017-06-28] MEDS ORDERED: morphine CARPU-JECT 2 MG/1 ML DISP.SYRIN IVPUSH ONE ×2 (19:05→22:18)
[2017-06-28] MEDS ORDERED: morphine SULFATE 4 MG/ML VIAL ONE ×2 (19:20→22:28)
[2017-06-28 19:59] LABS: BASO % 0.9 % (0-2.0); EOS % 5.1 % (0-4.5); HEMATOCRIT 36.5 % (32.4-45.2); HEMOGLOBIN 11.9 GM/dL (10.7-15.3); LYMPH % 30.8 % (8-40); MCH 28.3 pg (25.7-33.7); MCHC 32.7 g/dl (32.0-36.0); MEAN CELL VOLUME 86.7 fl (80-96); MEAN PLT VOLUME 8.4 fl (7.5-11.1); MONO % 7.7 % (3.8-10.2); NEUT % 55.5 % (42.8-82.8); PLATELET COUNT 150 K/MM3 (134-434); RBC 4.21 M/mm3 (3.60-5.2); RDW 14.8 % (11.6-15.6); WHITE BLOOD COUNT 7.2 K/mm3 (4.0-10.0)
[2017-06-28 20:18] LABS: PROTHROMBIN TIME (PATIENT) 11.3 SEC (9.7-13.0)
[2017-06-28 20:30] LABS: ALBUMIN 3.2 g/dl (3.4-5.0); ANION GAP 7 (8-16); BILIRUBIN,TOTAL 0.3 mg/dL (0.2-1.0); BLOOD UREA NITROGEN 14 mg/dL (7-18); CALCIUM 8.2 mg/dL (8.5-10.1); CHLORIDE 105 mmol/L (98-107); CO2 28 mmol/L (21-32); CREATININE 0.9 mg/dL (0.55-1.02); GLUCOSE,RANDOM 111 mg/dL (74-106); MAGNESIUM 1.6 mg/dL (1.8-2.4); POTASSIUM 4.2 mmol/L (3.5-5.1); SGOT/AST 13 U/L (15-37); SGPT/ALT 12 U/L (12-78); SODIUM 140 mmol/L (136-145); TOT PROT 6.6 g/dl (6.4-8.2)
[2017-06-28 20:33] LABS: ALK PHOS 94 U/L (45-117)
[2017-06-28] MEDS ORDERED: MAGNESIUM SULF 50% (8.12 MEQ/2 ML-1 GM VIAL) IVPB ONE (20:49)
[2017-06-28] MEDS ORDERED: MAGNESIUM SULF 50% (8.12 MEQ/2 ML-1 GM VIAL) ONE (20:53)
[2017-06-28] MEDS ORDERED: morphine SULFATE 4 MG/ML VIAL IVPUSH PRN (23:58)
[2017-06-28] MEDS ORDERED: DOCUSATE SODIUM 100 MG CAPSULE (FP) PO PRN (23:58)
--- NOTE | 2017-06-28 23:58 | HP ---
CHIEF COMPLAINT: chest pain PCP: Dr. Abraham at [facility] Pain management: Dr. Dimitri Gonzalez ([phone]) at [facility] Surgeon: Dr. Valderrama HISTORY OF PRESENT ILLNESS: 71yo woman with PMHx of CAD s/p stents x2 and SD, Hep C, h/o seizure disorder, colon ca s/p resection, chronic hip pain, HTN, MDD, and recent bilateral hip ORIF 6 weeks ago who BIBEMS from [place] for L sided CP x 4days. Patient states that the CP was initially intermittent, occurring a few times per day while at rest, lasting a few minutes and radiating to L axilla or L neck. Starting this morning, however, the CP is constant, and is worse during inspiration. Patient reports having a stress test before her recent surgery, which was "normal". Of note, per [place] records, patient is not currently on dual antiplatelet therapy. Patient was last here in Nov 2016 for removal of bilateral hip hardware by Dr. Valderrama. At that time, she was taking Plavix/ASA, but it was held for a few days post-operatively. No chest palpitations, VICTORIA, dizziness, focal weakness. No fever, chills, recent URI symptoms. Patient uses a wheelchair at baseline due to chronic hip pain and has daily PT. ER course was notable for: (1) CTA neg for PE (2) Received ASA 324mg (3 )Trop neg x1 (3) EKG - NSR 1st degree AV block, no ST/T wave changes Recent Travel: none PAST MEDICAL HISTORY: CAD s/p x 2 stents, SD - 10 years ago Hep C - diagnosed ~1990 during transfusion screening; patient reports being treated interferon x 1year Seizure disorder - last 6 years ago (per chart, pt can't recall) Colon ca s/p resection ~15y ago GERD w/o esophagitis MDD Anxiety PAST SURGICAL HISTORY: CAD s/p stents x2 Colon Ca resection x2 multiple lysis of adhesions multiple hip surgeries - bilateral ORIF 6 weeks ago per pt Social History: has 2 children, lives at [facility] close x 2years Smoking: quit 5 years ago; 100 pack year history Alcohol: former abuse, in AA for past 26years Drugs: Denies Family History: No family history of cancer Allergies sumatriptan [From Imitrex] Allergy (Severe, Verified 06/28/17 18:22) CHEST PAIN sumatriptan succinate [From Imitrex] Allergy (Severe, Verified 06/28/17 18:22) CHEST PAIN nitroglycerin Adverse Reaction (Severe, Verified 06/28/17 18:22) SEVERE MIGRAINE HEADACHE HOME MEDICATIONS: Home Medications Medication Instructions Recorded Acetaminophen [Tylenol] 650 mg PO PRN PRN 12/25/16 Carvedilol [Coreg] 6.25 mg PO BID 12/25/16 Citalopram Hydrobromide [Celexa -] 40 mg PO DAILY 12/25/16 Magnesium Hydrox 2400MG/30Ml [Milk 30 ml PO PRN 12/25/16 of Magnesia -] Protonix - 40 mg PO DAILY 12/25/16 levETIRAcetam [Keppra -] 500 mg PO BID 12/25/16 traZODone HCL [Desyrel -] 2 cap PO HS 12/25/16 Diphenhydramine HCl [Benadryl -] 25 mg PO Q6H 06/28/17 Duloxetine HCl [Cymbalta] 60 mg PO DAILY 06/28/17 Melatonin 3 mg PO HS 06/28/17 Meloxicam [Mobic] 15 mg PO DAILY 06/28/17 Oxycodone HCl/Acetaminophen 1 each PO TID 06/28/17 [Percocet 10-325 mg Tablet] Tolterodine Tartrate [Detrol LA] 2 mg PO DAILY 06/28/17 REVIEW OF SYSTEMS CONSTITUTIONAL: +diaphoresis Absent: fever, chills, generalized weakness, malaise, loss of appetite, weight change HEENT: Absent: rhinorrhea, nasal congestion, throat pain, throat swelling, difficulty swallowing, mouth swelling, ear pain, eye pain, visual changes CARDIOVASCULAR: chest pain Absent: , syncope, palpitations, irregular heart rate, lightheadedness, peripheral edema RESPIRATORY: +shortness of breath, dyspnea with exertion Absent: cough, orthopnea, wheezing, stridor, hemoptysis GASTROINTESTINAL: Absent: abdominal pain, abdominal distension, nausea, vomiting, diarrhea, constipation, melena, hematochezia GENITOURINARY: Absent: dysuria, frequency, urgency, hesitancy, hematuria, flank pain, genital pain MUSCULOSKELETAL: +hip pain Absent: myalgia, arthralgia, joint swelling, back pain, neck pain SKIN: Absent: rash, itching, pallor HEMATOLOGIC/IMMUNOLOGIC: Absent: easy bleeding, easy bruising, lymphadenopathy, frequent infections ENDOCRINE: Absent: unexplained weight gain, unexplained weight loss, heat intolerance, cold intolerance NEUROLOGIC: Absent: headache, focal weakness or paresthesias, dizziness, unsteady gait, seizure, mental status changes, bladder or bowel incontinence PSYCHIATRIC: Absent: anxiety, depression, suicidal or homicidal ideation, hallucinations. PHYSICAL EXAMINATION Vital Signs - 24 hr 06/28/17 06/28/17 06/28/17 18:22 19:00 19:15 Temperature 98.2 F Pulse Rate 82 78 Pulse Rate [ 81 Apical] Respiratory 20 20 Rate Blood Pressure 162/80 Blood Pressure 165/88 [Left Arm] O2 Sat by Pulse 97 100 99 Oximetry (%) 06/28/17 06/28/17 06/28/17 19:30 19:39 20:46 Temperature Pulse Rate Pulse Rate [ 73 74 Apical] Respiratory 20 20 Rate Blood Pressure Blood Pressure 139/93 161/81 [Left Arm] O2 Sat by Pulse 99 98 97 Oximetry (%) GENERAL: aaox3, nad, no conversational dyspnea HEENT:PERRL, EOMI, sclera anicteric, conjunctiva clear, no pharyngeal erythema, mmm NECK: no nuchal rigidity, no cervical LAD LUNGS: decreased at bases, no wheezing/rales/rhonchi appreciated HEART: RRR, normal s1/s2, no m/r/g ABDOMEN: soft, NTND MUSCULOSKELETAL: no ttp of hips bilaterally LOWER EXTREMITIES: 2+ DP pulses, wwp, no pitting edema NEUROLOGICAL: Cranial nerves II-XII intact. Normal speech CBC, BMP 06/28/17 19:40 06/28/17 19:17 Hepatic Panel Total Bilirubin 0.3 mg/dL (0.2-1.0) D 06/28/17 19:17 AST 13 U/L (15-37) L 06/28/17 19:17 ALT 12 U/L (12-78) 06/28/17 19:17 Alkaline Phosphatase 94 U/L (45-117) 06/28/17 19:17 Albumin 3.2 g/dl (3.4-5.0) L 06/28/17 19:17 06/28/17 19:17 Troponin I B-Natriuretic Peptide 352.89 H ASSESSMENT/PLAN: 71yo woman with PMHx of CAD s/p stents x2 and SD, Hep C, h/o seizure disorder, colon ca s/p resection, chronic hip pain, HTN, MDD, and recent bilateral hip ORIF 6 weeks ago who presents with CP x 4day, no constant and pleuritic. #Atypical CP, rule out ACS, CTA neg for PE -Continuous telemetry monitoring -Cardiology consulted -2D ECHO -Serial Trops/EKG -Morphine 2mg Q4H for pain 6-10 -Start ASA 81mg daily #CAD s/p stents -Check with [place] why patient is no longer on DAPT (was in Nov 2016, but not listed in [place] med list) -Start ASA 81mg daily #h/o seizure disorder - c/w home Keppra #HTN - c/w Coreg #MDD/anxiety - c/w home meds #GERD - c/w home Protonix #chronic pain - c/w Percocet 10-325 TID PRN #FEN PO intake hypoMg repleted --> recheck in AM Cardiac/Na restricted #PPX - HSQ Q8H / home Protonix #DIPO: obs tele FULL code Plan d/w Dr. Imelda Luna MD PGY1 - Internal Medicine, Night Technical Communicator Visit type - Emergency Visit Emergency Visit: Yes ED Registration Date: 06/28/17 Care time: The patient presented to the Emergency Department on the above date and was hospitalized for further evaluation of their emergent condition. - New Patient This patient is new to me today: Yes Date on this admission: 06/29/17 - Critical Care Critical Care patient: No Hospitalist Screening - Colonoscopy Questionnaire Colonoscopy Questionnaire: Colonoscopy Questionnaire - Patient: 50 - 75 years old and never had a screening colonoscopy: No History of colon or rectal polyps, or CA: Yes History of IBD, Crohn's disease or UC: No History of abdominal radiation therapy as a child: Unknown - Relative: 1 with colon or rectal CA, or polyps at age 60 or younger: No Colon or rectal CA diagnosed at age 45 or younger: No Multiple relatives with colon or rectal CA: No - Outcome: Screening Result: Positive Screen
[2017-06-29] MEDS ORDERED: morphine SULFATE 4 MG/ML VIAL ONE (00:12)
[2017-06-29] MEDS ORDERED: ACETAMINOPHEN 325 MG TABLET (FP) PO PRN ×3 (01:53→04:42)
[2017-06-29] MEDS ORDERED: PATIENT'S OWN MEDICATION (NON-FORMULARY) (Magnesium Hydrox 2400mg/30ml 30 ML) PO SCH (02:00)
[2017-06-29] MEDS ORDERED: diphenhydrAMINE HCL 25 MG CAPSULE (FP) PO SCH (02:00)
[2017-06-29] MEDS ORDERED: traZODone HCL 50 MG TABLET (FP) PO SCH ×2 (03:00→22:00)
[2017-06-29] MEDS ORDERED: diphenhydrAMINE HCL 25 MG CAPSULE (FP) PO PRN (03:05)
--- NOTE | 2017-06-29 03:11 | PN ---
Teaching Attending Note Name of Resident: Aretha Luna ATTENDING PHYSICIAN STATEMENT I saw and evaluated the patient. Chart, data, imaging reviewed. I reviewed the resident's note and discussed the case with the resident. I agree with the resident's findings and plan as documented. SUBJECTIVE: 71yo woman with PMHx of CAD s/p stents x2 and [place], Hep C, seizure disorder, colon ca s/p resection, chronic hip pain, HTN, and recent bilateral hip ORIF 6 weeks [place] because of CP which has been ongoing for the last 4 days. Pain is intermittent with radiation to neck and upper extremities b /l. Occurs at rest also Pt reported recent negative cardiac stress test prior to b/l hip replacements. CTA in ER ruled out PE. OBJECTIVE: Last Vital Signs Temp Pulse Resp BP Pulse Ox 98.2 F 74 20 161/81 98 06/28/17 18:22 06/28/17 20:46 06/29/17 00:00 06/28/17 20:46 06/29/17 00:00 general - nad, comfortable appearing, obese heent - at, nc, moist oral mucosa neck -no masses or jvd appreciated cv s1+s2+rrr chest- cta b/l abdomen- soft, nt, bs+ ext- no pedal edema skin- no rashes appreciated Abnormal Lab Results 06/28/17 06/28/17 06/28/17 18:55 19:17 19:17 Eosinophils % 5.1 H Anion Gap 7 L Random Glucose 111 H Calcium 8.2 L Magnesium 1.6 L AST 13 L B-Natriuretic Peptide 352.89 H Albumin 3.2 L 06/28/17 19:40 Eosinophils % 5.1 H Anion Gap Random Glucose Calcium Magnesium AST B-Natriuretic Peptide Albumin EKG -nsr, no ischemic changes noted CTA of chest - negative for pe, lung parenchyma clear with no infiltrates ASSESSMENT AND PLAN: 71yo woman with chest pain. Unclear if cardiac in nature. Will r/o acs given history of CAD. PE was already ruled out given recent surgery. -tele/observation -trend troponins -transthoracic echo -statin -ASA -bblocker -nitroglycerin sc prn if angina -morphine 2mg IV prn if pain -cardiology evaluation -consider repeat cardiac stress test restart home medications DVT ppx- heparin sc
[2017-06-29] MEDS ORDERED: MAGNESIUM HYDROX 2400MG/30ML ORAL SUSPENSION 30 ML CUP PO PRN (03:41)
[2017-06-29] MEDS ORDERED: oxyCODONE HCL 5 MG TABLET PO PRN ×2 (04:41→05:03)
[2017-06-29 05:14] VITALS: BMI 28.6
[2017-06-29 06:15] LABS: HEMATOCRIT 33.8 % (32.4-45.2); HEMOGLOBIN 11.5 GM/dL (10.7-15.3); MCH 29.4 pg (25.7-33.7); MCHC 34.1 g/dl (32.0-36.0); MEAN CELL VOLUME 86.3 fl (80-96); MEAN PLT VOLUME 8.2 fl (7.5-11.1); PLATELET COUNT 126 K/MM3 (134-434); RBC 3.92 M/mm3 (3.60-5.2); RDW 15.1 % (11.6-15.6); WHITE BLOOD COUNT 7.1 K/mm3 (4.0-10.0)
[2017-06-29] MEDS: HEPARIN NA (PORCINE) 5,000 UNITS/ML 1ML VIAL SQ SCH ×2 (06:16→14:07)
[2017-06-29 07:18] LABS: CHLORIDE 107 mmol/L (98-107); SODIUM 141 mmol/L (136-145)
[2017-06-29 07:30] LABS: ANION GAP 7 (8-16); BLOOD UREA NITROGEN 11 mg/dL (7-18); CALCIUM 8.5 mg/dL (8.5-10.1); CO2 27 mmol/L (21-32); CREATININE 0.9 mg/dL (0.55-1.02); GLUCOSE,RANDOM 89 mg/dL (74-106)
[2017-06-29] MEDS ORDERED: CARVEDILOL 6.25 MG TABLET (FP) PO SCH (10:00)
[2017-06-29] MEDS ORDERED: levETIRAcetam 500 MG TABLET (FP) PO SCH (10:00)
[2017-06-29] MEDS ORDERED: PANTOPRAZOLE 40 MG TABLET (FP) PO SCH (10:00)
[2017-06-29] MEDS ORDERED: CITALOPRAM HYDROBROMIDE 20 MG TABLET (FP) PO SCH (10:00)
[2017-06-29] MEDS ORDERED: PATIENT'S OWN MEDICATION (NON-FORMULARY) (Meloxicam [Mobic] 15 MG) PO SCH (10:00)
[2017-06-29] MEDS ORDERED: DULoxetine HCL 30 MG CAPSULE.DR (FP) PO SCH (10:00)
[2017-06-29] MEDS ORDERED: TOLTERODINE TARTRATE LA 2 MG CAP.SR.24H PO SCH (10:00)
[2017-06-29] MEDS ORDERED: ASPIRIN COATED 81 MG TABLET.EC PO SCH (10:00)
[2017-06-29] MEDS: morphine SULFATE 4 MG/ML VIAL IVPUSH PRN ×2 (10:16→14:07)
--- NOTE | 2017-06-29 11:06 | EKG ---
Test Reason : Blood Pressure : / mmHG Vent. Rate : 073 BPM Atrial Rate : 073 BPM P-R Int : 212 ms QRS Dur : 078 ms QT Int : 418 ms P-R-T Axes : 051 026 062 degrees QTc Int : 460 ms SINUS RHYTHM WITH 1ST DEGREE A-V BLOCK Confirmed by ANNE-MARIE ARBOLEDA MD ([id number]) on 06/29/2017 11:05:51 AM Referred By: Confirmed By:ANNE-MARIE ARBOLEDA MD
--- NOTE | 2017-06-29 11:10 | EKG ---
Test Reason : Blood Pressure : / mmHG Vent. Rate : 077 BPM Atrial Rate : 075 BPM P-R Int : 000 ms QRS Dur : 066 ms QT Int : 392 ms P-R-T Axes : 000 024 057 degrees QTc Int : 443 ms POOR DATA QUALITY, INTERPRETATION MAY BE ADVERSELY AFFECTED NORMAL SINUS RHYTHM ABNORMAL ECG NO PREVIOUS ECGS AVAILABLE Confirmed by ANNE-MARIE ARBOLEDA MD ([id number]) on 06/29/2017 11:09:58 AM Referred By: Confirmed By:ANNE-MARIE ARBOLEDA MD
--- NOTE | 2017-06-29 11:29 | CON.CARD ---
Cardiology Consult (text) - Consultation Consultation Note: cc: cp hpi: 71 f hx mi with remote pcix2, hcv, seizures, colon ca, htn, dm, here with cp. Has been getting PT with arms and few days ago noticed pain in left upper chest. Soreness in one spot, no radiation. Worse with deep breaths or pushing on area. No sob, palps, dizzy, loc, pnd, orhtopnea, le edema. pmh: per hpi psh: hip surgery social: no tob fam: no premature cad. scd ros: per hpi; no nvd, fever, cough, calvo vision changes, gib hematuria, dysuria meds: Home Medications Medication Instructions Recorded Acetaminophen [Tylenol] 650 mg PO Q6H PRN 12/25/16 Carvedilol [Coreg] 6.25 mg PO BID 12/25/16 Citalopram Hydrobromide [Celexa -] 40 mg PO DAILY 12/25/16 Magnesium Hydrox 2400MG/30Ml [Milk 30 ml PO Q48H PRN 12/25/16 of Magnesia -] Protonix - 40 mg PO DAILY 12/25/16 levETIRAcetam [Keppra -] 500 mg PO BID 12/25/16 traZODone HCL [Desyrel -] 100 mg PO HS 12/25/16 Diphenhydramine HCl [Benadryl -] 25 mg PO Q6H PRN 06/28/17 Duloxetine HCl [Cymbalta] 60 mg PO DAILY 06/28/17 Melatonin 3 mg PO HS 06/28/17 Meloxicam [Mobic] 15 mg PO DAILY 06/28/17 Oxycodone HCl/Acetaminophen 1 each PO Q8H PRN 06/28/17 [Percocet 10-325 mg Tablet] Tolterodine Tartrate [Detrol LA] 2 mg PO DAILY 06/28/17 pe: Vital Signs Period Temp Pulse Resp BP Sys/Gomez Pulse Ox Last 24 Hr 97.8 F-98.4 F 69-82 16-20 139-165/77-93 96-100 nad no jvd rrr s1s2 no mrg cta bl n lef aao3 no le e/c/c abd nt nd pos bs no jaundice diaphoresis pos dp pt no carotid bruits +reproducible cp with palpation of left upper chest Laboratory Last Values WBC 7.1 K/mm3 (4.0-10.0) 06/29/17 06:00 RBC 3.92 M/mm3 (3.60-5.2) 06/29/17 06:00 Hgb 11.5 GM/dL (10.7-15.3) 06/29/17 06:00 Hct 33.8 % (32.4-45.2) 06/29/17 06:00 MCV 86.3 fl (80-96) 06/29/17 06:00 MCH 29.4 pg (25.7-33.7) 06/29/17 06:00 MCHC 34.1 g/dl (32.0-36.0) 06/29/17 06:00 RDW 15.1 % (11.6-15.6) 06/29/17 06:00 Plt Count 126 K/MM3 (134-434) L 06/29/17 06:00 MPV 8.2 fl (7.5-11.1) 06/29/17 06:00 Neutrophils % 55.5 % (42.8-82.8) 06/28/17 19:40 Lymphocytes % 30.8 % (8-40) 06/28/17 19:40 Monocytes % 7.7 % (3.8-10.2) 06/28/17 19:40 Eosinophils % 5.1 % (0-4.5) H 06/28/17 19:40 Basophils % 0.9 % (0-2.0) 06/28/17 19:40 PT with INR 11.30 SEC (9.7-13.0) 06/28/17 19:40 INR 1.00 (0.82-1.09) 06/28/17 19:40 PTT (Actin FS) Cancelled 06/28/17 18:55 Sodium 141 mmol/L (136-145) 06/29/17 06:00 Potassium 4.0 mmol/L (3.5-5.1) 06/29/17 06:00 Chloride 107 mmol/L (98-107) 06/29/17 06:00 Carbon Dioxide 27 mmol/L (21-32) 06/29/17 06:00 Anion Gap 7 (8-16) L 06/29/17 06:00 BUN 11 mg/dL (7-18) 06/29/17 06:00 Creatinine 0.9 mg/dL (0.55-1.02) 06/29/17 06:00 Creat Clearance w eGFR > 60 (>60) 06/28/17 19:17 Random Glucose 89 mg/dL (74-106) 06/29/17 06:00 Calcium 8.5 mg/dL (8.5-10.1) 06/29/17 06:00 Magnesium 1.6 mg/dL (1.8-2.4) L 06/28/17 19:17 Total Bilirubin 0.3 mg/dL (0.2-1.0) D 06/28/17 19:17 AST 13 U/L (15-37) L 06/28/17 19:17 ALT 12 U/L (12-78) 06/28/17 19:17 Alkaline Phosphatase 94 U/L (45-117) 06/28/17 19:17 Creatine Kinase 45 IU/L (26-192) 06/29/17 06:00 Troponin I < 0.02 ng/ml (0.00-0.05) 06/29/17 06:00 B-Natriuretic Peptide 352.89 pg/ml (5-125) H 06/28/17 19:17 Total Protein 6.6 g/dl (6.4-8.2) 06/28/17 19:17 Albumin 3.2 g/dl (3.4-5.0) L 06/28/17 19:17 Blood Type A POSITIVE 06/28/17 19:40 Antibody Screen Negative 06/28/17 19:40 tele: sr cta chest: no pe, clear lungs ecg: sr, nl intervals, no ischemic changes a/p: 71 f hx mi with remote pcix2, hcv, seizures, colon ca, htn, dm, here with cp. cp: -atypical, reproducible, seems msk -no signs acs, ce's neg, ecg benign -pt reports recent normal nuclear stress test about 2 mos ago with her generator technician prior to her hip surgery -echo pending, if benign then ok for dc from cardiac pov cad: -as above -cont home bb, asa htn: -cont home meds
--- NOTE | 2017-06-29 15:40 | PN ---
Teaching Attending Note Name of Resident: Nadir Yu ATTENDING PHYSICIAN STATEMENT I saw and evaluated the patient. I reviewed the resident's note and discussed the case with the resident. I agree with the resident's findings and plan as documented. SUBJECTIVE: L sided chest pain is stil there , getting better . no OSB or fever OBJECTIVE: NAD Cv: RRR, 2/6 SM at apex. Lungs: CTAB Ext: no edema Abd: soft, NT, Nd , NL BS MS: TTP 2 cm from the Left sternal border at level of rib 7or 8 . ASSESSMENT AND PLAN: 71 y/o lady with h/0 CAD s/p stents x2 . S/p SC, Hep C, seizure disorder, colon Ca s/p resection, chronic hip pain, HTN, and recent bilateral hip ORIF 6 weeks ago who presented with L sided chest pain. 1- CP , due to costochonderitis. no signs of ACS, no PE on CTA , no fx or abnormalitie sin ribs. start naproxen BID x 4 days only. cont f/u with her [facility]. recent stress test neg seen by card here 2- cont her out pt meds for HTN, and seizure and other chronic conditions 3- s/p b/l hip ORIF . currently resides at [facility] back to rehab
[2017-06-29] MEDS ORDERED: amLODIPine BESYLATE 5 MG TABLET (FP) PO ONE (17:45)
[2017-06-29 19:33] VITALS: BP 160/90; PULSE 77; TEMP 98
[2017-06-29] MEDS ORDERED: MELATONIN 1 MG TABLET PO SCH (22:00)
== END 2017-06-29 18:45 ==
LOC: JER 18:06 → JERBED 22:59 → J4W 06-29 01:53
PROVIDERS: ADMIT Internal Medicine; ATTEND Internal Medicine
PROC: 3E033GC Introduction of Other Therapeutic Substance into Peripheral Vein, Percutaneous Approach (ICD-10-PCS; principal; 2017-06-28)
PROC: 3E0337Z Introduction of Electrolytic and Water Balance Substance into Peripheral Vein, Percutaneous Approach (ICD-10-PCS; 2017-06-28)
PROC: 3E013GC Introduction of Other Therapeutic Substance into Subcutaneous Tissue, Percutaneous Approach (ICD-10-PCS; 2017-06-28)
DX: R07.89 Other chest pain (principal); I10 Essential (primary) hypertension; I25.10 Atherosclerotic heart disease of native coronary artery without angina pectoris; B18.2 Chronic viral hepatitis C; G40.909 Epilepsy, unspecified, not intractable, without status epilepticus; K21.9 Gastro-esophageal reflux disease without esophagitis; F33.9 Major depressive disorder, recurrent, unspecified; I73.9 Peripheral vascular disease, unspecified; Z85.038 Personal history of other malignant neoplasm of large intestine; Z88.8 Allergy status to other drugs, medicaments and biological substances; Z95.5 Presence of coronary angioplasty implant and graft; G89.29 Other chronic pain
CPT/HCPCS: 36415; 71045-TC-FY; 71275-TC; 80048; 80053; 82550; 83735; 83880; 84484; 85025; 85027; 85610; 86850; 86900; 86901; 93005; 93010; 93306-TC; 96372; 96374; 96375; 96376; 99285-25; G0378; J1644; J7030

== ENCOUNTER 2017-06-30 21:06 | Emergency (ER) | payer OTHER ==
[2017-06-30 21:19] VITALS: BP 155/93; PULSE 100; TEMP 97.7; BMI 34.7
--- NOTE | 2017-06-30 21:23 | PDOC ---
History of Present Illness - General Chief Complaint: Pain Stated Complaint: ABD PAIN Time Seen by Provider: 06/30/17 21:19 - History of Present Illness Initial Comments: 06/30/17 21:20 71 yo F with h/o HTN, HLD, CAD s/p stent x 2, [place], Hep C, seizure disorder, colon ca. s/p ressection, SBO x 3, chronic hip pain, BL hip replacements who p/ w abdominal pain. Patient reports acute onset diffuse, colicky abdominal pain, with no identifiable triggers or alleviators, beginning at 0400 PM. Reports nausea without vomiting. Last bowel movement yesterday evening with no BPR. Nml stool. Denies F/C, vomitting,VICTORIA, CP, SOB, abdominal pain, postrpandial pain, decreased appetite, diarrhea, constipation, urinary complaints, weakness, lightheadedness , sensory changes. PMHx: as noted above. H/o choleycystectomy. ROS: as noted above SHx: Denies Etoh, tobacco use, IVDA. No recent travel, hiking, camping. No recent change in diet. Allergies: Sumatriptan, Nitroglycerin Past History - Past Medical History Allergies/Adverse Reactions: Allergies Allergy/AdvReac Type Severity Reaction Status Date / Time sumatriptan [From Imitrex] Allergy Severe Verified 06/30/17 21:19 sumatriptan succinate Allergy Severe Verified 18 21:19 [From Imitrex] nitroglycerin AdvReac Severe Verified 06/30/17 21:19 Home Medications: Ambulatory Orders Acetaminophen [Tylenol] 650 mg PO Q6H PRN 12/25/16 Carvedilol [Coreg] 6.25 mg PO BID 12/25/16 Citalopram Hydrobromide [Celexa -] 40 mg PO DAILY 12/25/16 Magnesium Hydrox 2400MG/30Ml [Milk of Magnesia -] 30 ml PO Q48H PRN 12/25/16 Protonix - 40 mg PO DAILY 12/25/16 levETIRAcetam [Keppra -] 500 mg PO BID 12/25/16 traZODone HCL [Desyrel -] 100 mg PO HS 12/25/16 Diphenhydramine HCl [Benadryl Capsule -] 25 mg PO Q6H PRN 06/28/17 Duloxetine HCl [Cymbalta] 60 mg PO DAILY 06/28/17 Melatonin 3 mg PO HS 06/28/17 Meloxicam [Mobic] 15 mg PO DAILY 06/28/17 Oxycodone HCl/Acetaminophen [Percocet 10-325 mg Tablet] 1 each PO Q8H PRN Tolterodine Tartrate [Detrol LA] 2 mg PO DAILY 06/28/17 Naproxen 250 mg PO Q12H PRN #8 tablet 06/29/17 Anemia: No Asthma: No Cancer: Yes (colon) Cardiac Disorders: Yes (VT, CAD) CVA: Yes (Mild stroke 2010, no deficites) COPD: No CHF: Yes Dementia: No Diabetes: No GI Disorders: No Disorders: No HTN: Yes Hypercholesterolemia: No Liver Disease: Yes (Hep C) Psychiatric Problems: Yes (MAJOR DEPRESSIVE DISODER,) Seizures: Yes Thyroid Disease: No - Surgical History Abdominal Surgery: Yes () Appendectomy: Yes Cardiac Surgery: Yes (Stents x2 over 15 years ago) Cholecystectomy: Yes Lung Surgery: No Neurologic Surgery: No Orthopedic Surgery: Yes (ORIF bilateral hips) - Suicide/Smoking/Psychosocial Hx Smoking History: Never smoked Have you smoked in the past 12 months: No Information on smoking cessation initiated: No Hx Alcohol Use: No Drug/Substance Use Hx: No Substance Use Type: None Hx Substance Use Treatment: No Review of Systems - Review of Systems Comments:: 06/30/17 21:25 GENERAL/CONSTITUTIONAL: No fever or chills. No weakness. HEAD, EYES, EARS, NOSE AND THROAT: No change in vision. No ear pain or discharge. No sore throat. CARDIOVASCULAR: No chest pain or shortness of breath RESPIRATORY: No cough, wheezing, or hemoptysis. GASTROINTESTINAL: +abdominal pain and nausea. No vomiting, diarrhea or constipation. GENITOURINARY: No dysuria, frequency, or change in urination. MUSCULOSKELETAL: No joint or muscle swelling or pain. No neck or back pain. SKIN: No rash NEUROLOGIC: No headache, vertigo, loss of consciousness, or change in strength/ sensation. ENDOCRINE: No increased thirst. No abnormal weight change HEMATOLOGIC/LYMPHATIC: No anemia, easy bleeding, or history of blood clots. ALLERGIC/IMMUNOLOGIC: No hives or skin allergy. *Physical Exam - Vital Signs Last Vital Signs Temp Pulse Resp BP Pulse Ox 97.7 F 100 H 20 155/93 97 06/30/17 21:17 06/30/17 21:17 06/30/17 21:17 06/30/17 21:17 06/30/17 21:17 - Physical Exam Comments: 06/30/17 21:25 GENERAL: Awake, alert, and fully oriented, in no acute distress HEAD: No signs of trauma, normocephalic, atraumatic EYES: PERRLA, EOMI, sclera anicteric, conjunctiva clear ENT: Auricles normal inspection, hearing grossly normal, nares patent, oropharynx clear without exudates. Moist mucosa NECK: Normal ROM, supple, no lymphadenopathy, JVD, or masses LUNGS: No distress, speaks full sentences, clear to auscultation bilaterally HEART: Regular rate and rhythm, normal S1 and S2, no murmurs, rubs or gallops, peripheral pulses normal and equal bilaterally. ABDOMEN: Soft, diffusely ttp, normoactive bowel sounds. No guarding, no rebound. No masses. Neg CVA or suprpapubic ttp. EXTREMITIES : Normal inspection, Normal range of motion, no edema. No clubbing or cyanosis. SKIN: Warm, Dry, normal turgor, no rashes or lesions noted ED Treatment Course - LABORATORY CBC & Chemistry Diagram: 06/30/17 22:55 06/30/17 22:55 Medical Decision Making - Medical Decision Making 06/30/17 23:07 71 yo F with h/o HTN, HLD, CAD s/p stent x 2, [place], Hep C, seizure disorder, colon ca. s/p ressection, SBO x 3, chronic hip pain, BL hip replacements who p/ w abdominal pain. VSS, A&Ox3, NAD. Abdomen diffusely ttp. Will consider colitis , appendicitis, SBO, cystitis, nephrolithaisis, mesenteric ischemia. ED Course: CBC,CMP, Lipase, Cardiac Pr EKG CT AP Morphine 2 mg 06/30/17 23:48 WBC: 14.2 *DC/Admit/Observation/Transfer Diagnosis at time of Disposition: Abdominal pain - Discharge Dispostion Disposition: NURSING HOME FACILITY Condition at time of disposition: Fair - Referrals Referrals: Virgen Abraham, [Non Staff, Medical] - - Patient Instructions Printed Discharge Instructions: DI for Abdominal Pain-Adult Additional Instructions: Please return to ER if any fever, chills, increased pain, altered mental status , or other concerning symptoms. Follow-up with primary care provider later this week for further evaluation. - Post Discharge Activity
[2017-06-30] MEDS ORDERED: ACETAMINOPHEN 325 MG TABLET (FP) PO ONE (23:00)
[2017-06-30] MEDS ORDERED: MAG HYDROX/AL HYDROX/SIMETH 30 ML UNIT-DOSE CUP PO ONE (23:00)
[2017-06-30] MEDS ORDERED: RANITIDINE HCL 150 MG TABLET (FP) PO ONE (23:01)
[2017-06-30 23:04] LABS: BASO % 0.9 % (0-2.0); EOS % 2.3 % (0-4.5); HEMATOCRIT 42.9 % (32.4-45.2); HEMOGLOBIN 14.3 GM/dL (10.7-15.3); LYMPH % 14.6 % (8-40); MCH 28.6 pg (25.7-33.7); MCHC 33.3 g/dl (32.0-36.0); MEAN CELL VOLUME 85.6 fl (80-96); MEAN PLT VOLUME 8.3 fl (7.5-11.1); MONO % 5.6 % (3.8-10.2); NEUT % 76.6 % (42.8-82.8); PLATELET COUNT 176 K/MM3 (134-434); RBC 5.01 M/mm3 (3.60-5.2); RDW 15.1 % (11.6-15.6); WHITE BLOOD COUNT 14.2 K/mm3 (4.0-10.0)
[2017-06-30 23:16] LABS: INR 0.97 (0.82-1.09)
[2017-06-30] MEDS ORDERED: morphine CARPU-JECT 2 MG/1 ML DISP.SYRIN IM ONE (23:18)
--- NOTE | 2017-06-30 23:22 | PDOC ---
Attending Attestation - Resident Resident Name: Irving Yancey - ED Attending Attestation I have performed the following: I have examined & evaluated the patient, The case was reviewed & discussed with the resident, I agree w/resident's findings & plan, Exceptions are as noted - HPI HPI: 06/30/17 23:15 Ms Arriaga is a 71 yo F with h/o HTN, HLD, CAD s/p stent x 2, [place], Hep C, seizure disorder, colon ca. s/p resection, SBO x 3 who presents to the ER from [facility] with a complaint of colicky abdominal pain. Nausea, no vomiting No diarrhea Last Bowel movement yesterday Pt states that this feels like a small bowel obstruction to her 06/30/17 23:22 - Physicial Exam PE: 06/30/17 23:16 GENERAL: The patient is in no acute distress. HEAD: Normal with no signs of trauma. EYES: PERRLA, EOMI, sclera anicteric, conjunctiva clear. ENT: Ears normal, nares patent, oropharynx clear without exudates. Moist mucous membranes. NECK: Normal range of motion, supple without lymphadenopathy, JVD, or masses. LUNGS: Breath sounds equal, clear to auscultation bilaterally. No wheezes, and no crackles. HEART:Regular rate and rhythm, normal S1 and S2 without murmur, rub or gallop. ABDOMEN: Soft, nontender, normoactive bowel sounds. No guarding, no rebound. No masses palpable. EXTREMITIES: Normal range of motion, no edema. No clubbing or cyanosis. No erythema, or tenderness. NEUROLOGICAL: Cranial nerves II through XII grossly intact. Normal speech. No focal neurological deficits. MUSCULOSKELETAL: Back non-tender to palpation, no CVA tenderness SKIN: Warm, Dry, normal turgor, no rashes or lesions noted. - Medical Decision Making 07/01/17 00:12 Laboratory Tests 06/30/17 06/30/17 06/30/17 22:55 22:55 22:55 WBC 14.2 H D Hgb 14.3 D Hct 42.9 D Plt Count 176 D INR 0.97 Sodium Potassium Chloride Carbon Dioxide BUN Creatinine Lactic Acid Creatine Kinase 48 Troponin I < 0.02 Lipase 51 L 06/30/17 06/30/17 22:55 23:11 WBC Hgb Hct Plt Count INR Sodium 140 Potassium 4.3 Chloride 105 Carbon Dioxide 28 BUN 14 Creatinine 1.0 Lactic Acid 1.3 Creatine Kinase Troponin I Lipase CT pending <Lory Hamilton - Last Filed: 07/01/17 00:12> Heart Score/ECG Review - ECG Intrepretation Comment:: 07/01/17 04:21 Completed @2:22:36 Normal Sinus rhythm Normal ECG Vent. rate 89 bpm SC interval 176 ms QRS duration 74 ms <Dino Calvo - Last Filed: 07/01/17 04:22>
[2017-06-30] MEDS ORDERED: morphine CARPU-JECT 4 MG/1 ML DISP.SYRIN IVPUSH ONE ×2 (23:30)
[2017-06-30] MEDS ORDERED: morphine SULFATE 4 MG/ML VIAL ONE (23:35)
[2017-06-30] MEDS ORDERED: RANITIDINE HCL 150 MG TABLET (FP) ONE (23:35)
[2017-06-30] MEDS ORDERED: ACETAMINOPHEN 325 MG TABLET (FP) ONE (23:35)
[2017-06-30] MEDS ORDERED: MAG HYDROX/AL HYDROX/SIMETH 30 ML UNIT-DOSE CUP ONE (23:36)
[2017-06-30 23:56] LABS: LIPASE 51 U/L (73-393)
[2017-06-30 23:57] LABS: ALBUMIN 3.8 g/dl (3.4-5.0); ANION GAP 7 (8-16); BILIRUBIN,TOTAL 0.4 mg/dL (0.2-1.0); CALCIUM 9.5 mg/dL (8.5-10.1); CHLORIDE 105 mmol/L (98-107); CO2 28 mmol/L (21-32); GLUCOSE,RANDOM 136 mg/dL (74-106); POTASSIUM 4.3 mmol/L (3.5-5.1); SGPT/ALT 13 U/L (12-78); SODIUM 140 mmol/L (136-145); TOT PROT 7.7 g/dl (6.4-8.2)
--- NOTE | 2017-07-01 00:01 | PDOC ---
*Physical Exam - Vital Signs Last Vital Signs Temp Pulse Resp BP Pulse Ox 97.7 F 100 H 20 155/93 97 06/30/17 21:17 06/30/17 21:17 06/30/17 21:17 06/30/17 21:17 06/30/17 21:17 ED Treatment Course - LABORATORY CBC & Chemistry Diagram: 06/30/17 22:55 06/30/17 22:55 - ADDITIONAL ORDERS Additional order review: Laboratory Results 06/30/17 22:55 PT with INR 11.00 INR 0.97 06/30/17 22:55 RBC 5.01 D MCV 85.6 MCHC 33.3 RDW 15.1 MPV 8.3 Neutrophils % 76.6 D Lymphocytes % 14.6 D Monocytes % 5.6 Eosinophils % 2.3 Basophils % 0.9 - Medications Given in the ED: ED Medications Discontinued Medications Generic Name Dose Route Start Last Admin Trade Name Debbie PRN Reason Stop Dose Admin Acetaminophen 650 mg 06/30/17 23:00 06/30/17 23:48 Tylenol - PO 06/30/17 23:01 650 mg ONCE ONE Administration Al Hydroxide/Mg Hydroxide 30 ml 06/30/17 23:00 06/30/17 23:48 Mylanta Oral Suspension - PO 06/30/17 23:01 30 ml ONCE ONE Administration Morphine Sulfate 2 mg 06/30/17 23:18 06/30/17 23:52 Morphine Injection - IM 06/30/17 23:19 Not Given ONCE ONE Morphine Sulfate 6 mg 06/30/17 23:30 06/30/17 23:52 Morphine Injection - IVPUSH 06/30/17 23:31 Not Given ONCE ONE Morphine Sulfate 4 mg 06/30/17 23:30 06/30/17 23:49 Morphine Injection - IVPUSH 06/30/17 23:31 4 mg ONCE ONE Administration Ranitidine HCl 150 mg 06/30/17 23:01 06/30/17 23:49 Zantac - PO 06/30/17 23:02 150 mg ONCE ONE Administration Medical Decision Making - Medical Decision Making 07/01/17 00:01 Care taken over from Dr. Yancey. 07/01/17 01:46 Ms. Arriaga is a 71 yo woman w/ pmh of SBO presenting with symptoms she reports feel like her prior SBO incidents. CT abdomen/pelvis ordered for evaluation by prior team. Fentanyl 50mg given for pain control. 07/01/17 04:20 CT positive only for mild diffuse distention of bowel with fluid but no transition zone. Findings more consistent with gastroenteritis or ileus than small bowel obstruction - no abscess or free air noted. 07/01/17 04:[address] Patient advised of negative CT findings and pain likely due to chronic opioid pain medication and lack of movement while in fci. Advised patient to attempt to move / sit up more throughout day. IV tylenol given for further pain control and discharging patient to home for further outpatient workup as needed. *DC/Admit/Observation/Transfer Diagnosis at time of Disposition: Abdominal pain Qualifiers: Abdominal location: generalized Qualified Code(s): R10.84 - Generalized abdominal pain - Discharge Dispostion Disposition: HOME Condition at time of disposition: Fair - Referrals Referrals: Virgen Abraham, [Non Staff, Medical] - - Patient Instructions Printed Discharge Instructions: DI for Abdominal Pain-Adult Additional Instructions: Please return to ER if any fever, chills, increased pain, altered mental status , or other concerning symptoms. Follow-up with primary care provider later this week for further evaluation. - Post Discharge Activity
[2017-07-01 00:07] LABS: ALK PHOS 105 U/L (45-117); BLOOD UREA NITROGEN 14 mg/dL (7-18); SGOT/AST 15 U/L (15-37)
[2017-07-01] MEDS ORDERED: ACETAMINOPHEN 1000 MG/100 ML VIAL (NON FORMULARY) IVPB ONE (04:58)
[2017-07-01] MEDS ORDERED: ACETAMINOPHEN INJECTION 100 ML IVPB ONE (05:14)
--- NOTE | 2017-07-03 00:26 | EKG ---
Test Reason : Blood Pressure : / mmHG Vent. Rate : 089 BPM Atrial Rate : 089 BPM P-R Int : 176 ms QRS Dur : 074 ms QT Int : 366 ms P-R-T Axes : 049 024 074 degrees QTc Int : 445 ms NORMAL SINUS RHYTHM NORMAL ECG WHEN COMPARED WITH ECG OF 29-JUN-2017 00:33, ME INTERVAL HAS DECREASED Confirmed by JESE CALIXTO MD ([id number]) on 07/03/2017 12:26:08 AM Referred By: Confirmed By:JESE CALIXTO MD
== END 2017-07-01 06:14 ==
LOC: JER 21:06
PROC: 3E033NZ Introduction of Analgesics, Hypnotics, Sedatives into Peripheral Vein, Percutaneous Approach (ICD-10-PCS; principal; 2017-06-30)
PROC: 3E033NZ Introduction of Analgesics, Hypnotics, Sedatives into Peripheral Vein, Percutaneous Approach (ICD-10-PCS; 2017-06-30)
PROC: 3E033NZ Introduction of Analgesics, Hypnotics, Sedatives into Peripheral Vein, Percutaneous Approach (ICD-10-PCS; 2017-06-30)
DX: R10.84 Generalized abdominal pain (principal); I25.10 Atherosclerotic heart disease of native coronary artery without angina pectoris; I11.0 Hypertensive heart disease with heart failure; Z95.5 Presence of coronary angioplasty implant and graft; E78.00 Pure hypercholesterolemia, unspecified; E78.5 Hyperlipidemia, unspecified; B18.2 Chronic viral hepatitis C; G40.909 Epilepsy, unspecified, not intractable, without status epilepticus; Z86.73 Personal history of transient ischemic attack (TIA), and cerebral infarction without residual deficits; Z85.038 Personal history of other malignant neoplasm of large intestine; Z96.643 Presence of artificial hip joint, bilateral
CPT/HCPCS: 36415; 74177-TC; 80053; 82550; 83605; 83690; 84484; 85025; 85610; 93005; 93010; 96374; 96375; 99282-25; J0131

== ENCOUNTER 2017-10-05 21:45 | Inpatient (IN) | payer OTHER ==
--- NOTE | 2017-10-05 23:19 | PDOC ---
Attending Attestation - HPI HPI: 10/05/17 23:22 The patient is a 71 yo Female with a past medical history of HTN, HLD, CAD s/p stent x 2, [place], Hep C, seizure disorder, colon CA s/p resection, SBO x3, chronic hip pain, BL hip replacements who presents to the ED from [facility] with a couple of hours of difficulty swallowing. She states she ate dinner around 5PM and was able to keep her food down, however, became unable to swallow shortly after. She states she was able to drink water but felt like she was going to choke. She reports her symptoms as a strange feeling in her throat. The patient denies chest pain, shortness of breath, headache and dizziness. The patient denies fever, chills, nausea, vomit, diarrhea and constipation. The patient denies dysuria, frequency, urgency and hematuria. Surgical Hx: cholecystectomy. Social Hx: Denies Etoh, tobacco use, IVDA. Allergies: Sumatriptan, Nitroglycerin - Physicial Exam PE: 10/06/17 00:32 GENERAL: The patient is in no acute distress. HEAD: Normal with no signs of trauma. EYES: PERRLA, EOMI, sclera anicteric, conjunctiva clear. ENT: Ears normal, nares patent, oropharynx clear without exudates. Moist mucous membranes. NECK: Normal range of motion, supple without lymphadenopathy, JVD, or masses. LUNGS: Breath sounds equal, clear to auscultation bilaterally. No wheezes, and no crackles. HEART:Regular rate and rhythm, normal S1 and S2 without murmur, rub or gallop. ABDOMEN: Soft, nontender, normoactive bowel sounds. No guarding, no rebound. No masses palpable. EXTREMITIES: Normal range of motion, no edema. No clubbing or cyanosis. No erythema, or tenderness. NEUROLOGICAL: Cranial nerves II through XII grossly intact. Normal speech. No focal neurological deficits. MUSCULOSKELETAL: Back non-tender to palpation, no CVA tenderness SKIN: Warm, Dry, normal turgor, no rashes or lesions noted. - Medical Decision Making 10/05/17 23:22 Documentation prepared by Indigo Ortiz, acting as medical staff coordinator for Lory Hamilton MD <Indigo Ortiz - Last Filed: 10/06/17 00:32> - Resident Resident Name: MilviaStephanieozzie - ED Attending Attestation I have performed the following: I have examined & evaluated the patient, The case was reviewed & discussed with the resident, I agree w/resident's findings & plan, Exceptions are as noted - Medical Decision Making 10/06/17 01:23 This patient was sent to the ER "for r/o CVA" She tells me that she ate at 5pm, she subsequently developed a dry mouth and difficulty swallowing No extremity weakness or numbness No facial asymmetry no slurred speech Pt tells me that she has had this dry mouth intermittently Today she noted that it lasted longer it is unclear to me if this was the only symptom she had that alerted the shelter staff? Will do: Labs CT EKG Re assess EKG: SR rate of 79 bpm, axis nml, no st elevation or depressions, t waves up right Labs and CT pending Pt signed out to Dr Maloney for admission <Lory Hamilton - Last Filed: 10/08/17 11:40>
--- NOTE | 2017-10-05 23:20 | PDOC ---
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 s/p ressection, SBO x 3, chronic hip pain, BL hip replacements who presents to the ER because the staff at the retirement were concerned the patient was having sudden onset of trouble swallowing. The patient was able to eat dinner at 5pm but around 630pm, per patient, she started to get a little anxious and her throat started to "feel weird". She denies nausea vomiting fever chills chest pain and shortness of breath. She denies urinary or GI symptoms. She denies numbness or tingling or any neurological symptoms such as weakness. NIH Stroke Scale - Initial Evaluation Level of consciousness: Alert Ask patient the month and their age: Answers both correctly Ask patient to open & close eyes; make fist and let go: Obeys both correctly Best gaze (horizontal eye movement): Normal Visual field testing: No visual field loss Facial paresis (Show teeth/raise eyebrows/close eyes tight): Normal symmetrical movement Motor Function: Left Arm: Normal Motor Function: Right Arm: Normal (extends arm 90 (or 45) degrees for 10 seconds without drift Motor Function: Left Leg: Normal (extends leg 30 degrees for 5 seconds without drift) Motor Function: Right Leg: Normal (extends leg 30 degrees for 5 seconds without drift) Limb Ataxia: No ataxia Sensory(Use pinprick test arms,legs,trunk,face/side to side): Normal Best language (Describe picture, name items, read sentences): No Aphasia Dysarthria (read several words): Normal articulation Extinction and Inattention: No abnormality - Total Score NIH Stroke Scale Score: 0 Past History - Travel Traveled outside of the country in the last 30 days: No Close contact w/someone who was outside of country & ill: No - Past Medical History Allergies/Adverse Reactions: Allergies Allergy/AdvReac Type Severity Reaction Status Date / Time sumatriptan [From Imitrex] Allergy Severe Verified 10/05/17 21:58 sumatriptan succinate Allergy Severe Verified 10/05/17 21:58 [From Imitrex] nitroglycerin AdvReac Severe Verified 10/05/17 21:58 Home Medications: Ambulatory Orders Acetaminophen [Tylenol] 650 mg PO Q6H PRN 12/25/16 Carvedilol [Coreg] 6.25 mg PO BID 12/25/16 Citalopram Hydrobromide [Celexa -] 40 mg PO DAILY 12/25/16 Magnesium Hydrox 2400MG/30Ml [Milk of Magnesia -] 30 ml PO Q48H PRN 12/25/16 Protonix - 40 mg PO DAILY 12/25/16 levETIRAcetam [Keppra -] 500 mg PO BID 12/25/16 traZODone HCL [Desyrel -] 100 mg PO HS 12/25/16 Diphenhydramine HCl [Benadryl Capsule -] 25 mg PO Q6H PRN 06/28/17 Duloxetine HCl [Cymbalta] 60 mg PO DAILY 06/28/17 Melatonin 3 mg PO HS 06/28/17 Tolterodine Tartrate [Detrol LA] 2 mg PO DAILY 06/28/17 Naproxen 250 mg PO Q12H PRN #8 tablet 06/29/17 Methadone [Dolophine -] 5 mg PO BID 10/05/17 Anemia: No Asthma: No Cancer: Yes (colon) Cardiac Disorders: Yes (CA, CAD) CVA: Yes (Mild stroke 2010, no deficites) COPD: No CHF: Yes Dementia: No Diabetes: No GI Disorders: No Disorders: No HTN: Yes Hypercholesterolemia: No Liver Disease: Yes (Hep C) Psychiatric Problems: Yes (MAJOR DEPRESSIVE DISODER,) Seizures: Yes Thyroid Disease: No - Surgical History Abdominal Surgery: Yes () Appendectomy: Yes Cardiac Surgery: Yes (Stents x2 over 15 years ago) Cholecystectomy: Yes Lung Surgery: No Neurologic Surgery: No Orthopedic Surgery: Yes (ORIF bilateral hips) - Suicide/Smoking/Psychosocial Hx Smoking History: Current every day smoker Have you smoked in the past 12 months: Yes Information on smoking cessation initiated: No Hx Alcohol Use: No Drug/Substance Use Hx: No Substance Use Type: None Hx Substance Use Treatment: No Review of Systems - Review of Systems Able to Perform ROS?: Yes Is the patient limited Tamazight proficient: No Constitutional: No: Symptoms Reported, See HPI, Chills, Diaphoresis, Fever, Loss of Appetite, Malaise, Night Sweats, Weakness, Weight Stable, Unintentional Wgt. Loss, Unexplained wgt Loss, Other HEENTM: Yes: Difficulty Swallowing Respiratory: No: Symptoms reported, See HPI, Cough, Orthopnea, Shortness of Breath, SOB with Exertion, SOB at Rest, Stridor, Wheezing, Productive cough, Hemoptysis, Other Cardiac (ROS): No: Symptoms Reported, See HPI, Chest Pain, Edema, Irregular Heart Rate, Lightheadedness, Palpitations, Syncope, Chest Tightness, Other ABD/GI: No: Symptoms Reported, See HPI, Abdominal Distended, Abd. Pain w/ defecation, Blood Streaked Bowels, Constipated, Diarrhea, Difficulty Swallowing , Nausea, Poor Appetite, Poor Fluid Intake, Rectal Bleeding, Vomiting, Indigestion, Abdominal cramping, Tarry Stools, Other : No: Symptoms Reported, See HPI, Burning, Dysuria, Discharge, Frequency, Flank Pain, Hematuria, Incontinence, Pain, Urgency, Testicular Mass, Testicular Swelling, Lesions, Testicular Pain, Other Musculoskeletal: Yes: Joint Pain, Other (occasional left arms pain due to surgery ) Integumentary: No: Symptoms Reported, See HPI, Bruising, Change in Color, Change in Hair/Nails, Dryness, Erythema, Flushing, Lesions, Lumps, Pallor, Pruritus, Rash, Sweating, Other Neurological: No: Symptoms reported, See HPI, Headache, Numbness, Paresthesia, Pre-Existing Deficit, Seizure, Tingling, Tremors, Weakness, Unsteady Gait, Ataxia, Dizziness, Other Endocrine: No: Symptoms Reported, See HPI, Excessive Sweating, Flushing, Intolerance to Cold, Intolerance to Heat, Increased Hunger, Increased Thirst, Increased Urine, Unexplained Weight Gain, Unexplained Weight Loss, Change in Weight, Other Hematologic/Lymphatic: No: Symptoms Reported, See HPI, Anemia, Blood Clots, Easy Bleeding, Easy Bruising, Bleeding Diathesis, Lymph Node Abnormalities, Swollen Glands, Other *Physical Exam - Vital Signs Last Vital Signs Temp Pulse Resp BP Pulse Ox 98.1 F 72 18 129/88 94 L 10/05/17 21:51 10/05/17 21:51 10/05/17 21:51 10/05/17 21:51 10/05/17 21:51 - Physical Exam General Appearance: Yes: Nourished, Appropriately Dressed. No: Apparent Distress HEENT: positive: EOMI, AGY, Symmetrical Neck: positive: Trachea midline, Supple Respiratory/Chest: positive: Lungs Clear, Normal Breath Sounds. negative: Respiratory Distress Cardiovascular: positive: Regular Rhythm, Regular Rate, S1, S2. negative: Edema , JVD Gastrointestinal/Abdominal: positive: Soft. negative: Tender Musculoskeletal: negative: CVA Tenderness Integumentary: positive: Dry, Warm Neurologic: positive: tallow maker II-XII NML intact, Fully Oriented, Alert, Normal Mood/ Affect, Normal Response, Motor Strength 06/16 ED Treatment Course - LABORATORY CBC & Chemistry Diagram: 10/06/17 00:23 10/06/17 00:23 Medical Decision Making - Medical Decision Making 10/05/17 23:32 71F with multiple medical problems presents to the ER with difficulty swallowing. Patient endorses anxiety but need to r/o CVA Will do: Head CT CBC CMP Mg Lipid profile Coags Cardiac profile NIHSS 0 CXR EKG IVF Reassess 10/06/17 00:12 Patient signed out to Dr. Lepe who has assumed care of the patient and will follow up the initial ER work up *DC/Admit/Observation/Transfer Diagnosis at time of Disposition: Dysphagia, UTI (urinary tract infection) - Discharge Dispostion Condition at time of disposition: Stable - Referrals - Patient Instructions - Post Discharge Activity
--- NOTE | 2017-10-06 00:26 | PDOC ---
*Physical Exam - Vital Signs Last Vital Signs Temp Pulse Resp BP Pulse Ox 98.1 F 72 18 129/88 94 L 10/05/17 21:51 10/05/17 21:51 10/05/17 21:51 10/05/17 21:51 10/05/17 21:51 ED Treatment Course - LABORATORY CBC & Chemistry Diagram: 10/06/17 00:23 10/06/17 00:23 Medical Decision Making - Medical Decision Making 10/06/17 00:26 Patient is 71F with history of CAD, HTN, HLD, SBOx3 here today complaining of dysphagia, sent in by her [facility] to rule out stroke. Pending labs, CT, CXR , EKG and admission. 10/06/17 01:42 Laboratory Tests 10/06/17 10/06/17 10/06/17 00:23 00:23 01:26 WBC 12.5 H Hgb 14.1 Troponin I < 0.02 Urine Nitrite Positive CBC shows leukocytosis. Trop undetectable. UA nitrite positive. Will cover with ceftriaxone. Pending Head CT. EKG shows normal sinus rhythm with rate of 79. No st elevations/depressions. No significant t wave abnormalities. Normal intervals. Normal axis. 10/06/17 04:[address] negative for acute pathology. Will admit for UTI, dysphagia and further stroke work-up. *DC/Admit/Observation/Transfer Diagnosis at time of Disposition: Dysphagia, UTI (urinary tract infection) - Discharge Dispostion Condition at time of disposition: Stable Decision to Admit order: Yes - Referrals - Patient Instructions - Post Discharge Activity
[2017-10-06 00:39] LABS: BASO % 1.9 % (0-2.0); EOS % 3.9 % (0-4.5); HEMATOCRIT 42.3 % (32.4-45.2); HEMOGLOBIN 14.1 GM/dL (10.7-15.3); MCH 29.6 pg (25.7-33.7); MCHC 33.4 g/dl (32.0-36.0); MEAN CELL VOLUME 88.7 fl (80-96); MEAN PLT VOLUME 9.6 fl (7.5-11.1); MONO % 7.7 % (3.8-10.2); NEUT % 50.5 % (42.8-82.8); RBC 4.76 M/mm3 (3.60-5.2); RDW 14.5 % (11.6-15.6); WHITE BLOOD COUNT 12.5 K/mm3 (4.0-10.0)
[2017-10-06 00:52] LABS: INR 0.94 (0.83-1.09); PROTHROMBIN TIME (PATIENT) 10.6 SEC (9.7-13.0)
[2017-10-06 01:01] LABS: ANION GAP 6 MMOL/L (8-16); BILIRUBIN,TOTAL 0.3 mg/dL (0.2-1.0); BLOOD UREA NITROGEN 15 mg/dL (7-18); CALCIUM 9.3 mg/dL (8.5-10.1); CHLORIDE 102 mmol/L (98-107); CHOLESTEROL 227 mg/dL (50-200); CO2 32 mmol/L (21-32); CREATININE 1.1 mg/dL (0.55-1.02); GLUCOSE,RANDOM 100 mg/dL (74-106); POTASSIUM 4.3 mmol/L (3.5-5.1); SGOT/AST 20 U/L (15-37); SGPT/ALT 24 U/L (12-78); SODIUM 140 mmol/L (136-145); TOT PROT 7.9 g/dl (6.4-8.2); TRIGLYCERIDES 179 mg/dL (35-160)
[2017-10-06 01:02] LABS: ALK PHOS 98 U/L (45-117); HDL CHOLESTEROL 50 mg/dL (40-60)
[2017-10-06 01:36] LABS: URINE APPEARANCE CLEAR; URINE BILIRUBIN NEGATIVE (<2.0 mg/dL); URINE COLOR YELLOW; URINE GLUCOSE (UA) NEGATIVE (NEGATIVE); URINE KETONE NEGATIVE (NEGATIVE); URINE LEUK ESTERASE TRACE (NEGATIVE); URINE NITRITE POSITIVE (NEGATIVE); URINE PROTEIN NEGATIVE (NEGATIVE); URINE UROBILINOGEN NEGATIVE mg/dL (0.2-1.0)
[2017-10-06] MEDS: SODIUM CHLORIDE 1,000 ML IV SCH ×3 (01:36→08:58)
[2017-10-06 01:41] LABS: EPI CELLS FEW /HPF (FEW); URINE BACTERIA MODERATE /hpf (NONE SEEN)
[2017-10-06] MEDS ORDERED: CEFTRIAXONE 1,000 MG in DEXTROSE 5%-WATER - 50 ML IVPB ONE (01:45)
[2017-10-06] MEDS ORDERED: cefTRIAXone SODIUM 1 GM VIAL ONE (01:59)
[2017-10-06 02:01] LABS: PLATELET COUNT 195 K/MM3 (134-434)
[2017-10-06 02:02] LABS: PLATELET ESTIMATE ADEQUATE
[2017-10-06] MEDS ORDERED: morphine CARPU-JECT 4 MG/1 ML DISP.SYRIN IVPUSH ONE (02:26)
[2017-10-06] MEDS ORDERED: morphine SULFATE 4 MG/ML VIAL ONE (02:47)
--- NOTE | 2017-10-06 05:10 | HP ---
CHIEF COMPLAINT: difficulty swallowing PCP: Thong rhodes HISTORY OF PRESENT ILLNESS: 71F senior living resident extensive PMH HTN, HLD, CAD s/p stent x 2, [place], Hep C, seizure disorder, colon ca. s/p ressection, SBO x 3, chronic hip pain, BL hip replacements who presents to the ER because the staff at the senior living were concerned the patient was having sudden onset of trouble swallowing. The patient was able to eat dinner at 5pm but around 630pm, per patient, she started to get a little anxious and her throat started to "feel weird". She denies nausea vomiting fever chills chest pain and shortness of breath. She denies urinary or GI symptoms. She denies numbness or tingling or any neurological symptoms such as weakness. denies fever, chills , vomiting , D/C, leg swelling , numbness, tingling , denies any sob ,chest pain, orthopnea ER course was notable for: (1)head CT (2)cbc, cmp (3)UA Recent Travel:denies PAST MEDICAL HISTORY: HTN, HLD, CAD s/p stent x 2, [place], Hep C, seizure disorder, colon ca. s/p resection, SBO x 3, chronic hip pain, BL hip replacements PAST SURGICAL HISTORY: B/L hip replacement , colon resection Social History: Smokin-2 cig Alcohol:denies Drugs: denies Family History: non contributory Allergies sumatriptan [From Imitrex] Allergy (Severe, Verified 10/05/17 21:58) CHEST PAIN sumatriptan succinate [From Imitrex] Allergy (Severe, Verified 10/05/17 21:58) CHEST PAIN nitroglycerin Adverse Reaction (Severe, Verified 10/05/17 21:58) SEVERE MIGRAINE HEADACHE HOME MEDICATIONS: Home Medications Medication Instructions Recorded Acetaminophen [Tylenol] 650 mg PO Q6H PRN 12/25/16 Carvedilol [Coreg] 6.25 mg PO BID 12/25/16 Citalopram Hydrobromide [Celexa -] 40 mg PO DAILY 12/25/16 Magnesium Hydrox 2400MG/30Ml [Milk 30 ml PO Q48H PRN 12/25/16 of Magnesia -] Protonix - 40 mg PO DAILY 12/25/16 levETIRAcetam [Keppra -] 500 mg PO BID 12/25/16 traZODone HCL [Desyrel -] 100 mg PO HS 12/25/16 Diphenhydramine HCl [Benadryl 25 mg PO Q6H PRN 06/28/17 Capsule -] Duloxetine HCl [Cymbalta] 60 mg PO DAILY 06/28/17 Melatonin 3 mg PO HS 06/28/17 Meloxicam [Mobic] 15 mg PO DAILY 06/28/17 Tolterodine Tartrate [Detrol LA] 2 mg PO DAILY 06/28/17 Naproxen 250 mg PO Q12H PRN #8 tablet 06/29/17 Methadone [Dolophine -] 5 mg PO BID 10/05/17 REVIEW OF SYSTEMS CONSTITUTIONAL: Absent: fever, chills, diaphoresis, generalized weakness, malaise, loss of appetite, weight change HEENT: Absent: rhinorrhea, nasal congestion, throat pain, throat swelling, difficulty swallowing, mouth swelling, ear pain, eye pain, visual changes CARDIOVASCULAR: Absent: chest pain, syncope, palpitations, irregular heart rate, lightheadedness , peripheral edema RESPIRATORY: Absent: cough, shortness of breath, dyspnea with exertion, orthopnea, wheezing, stridor, hemoptysis GASTROINTESTINAL: Absent: abdominal pain, abdominal distension, nausea, vomiting, diarrhea, constipation, melena, hematochezia GENITOURINARY: Absent: dysuria, frequency, urgency, hesitancy, hematuria, flank pain, genital pain MUSCULOSKELETAL: Absent: myalgia, arthralgia, joint swelling, back pain, neck pain SKIN: Absent: rash, itching, pallor HEMATOLOGIC/IMMUNOLOGIC: Absent: easy bleeding, easy bruising, lymphadenopathy, frequent infections ENDOCRINE: Absent: unexplained weight gain, unexplained weight loss, heat intolerance, cold intolerance NEUROLOGIC: Absent: headache, focal weakness or paresthesias, dizziness, unsteady gait, seizure, mental status changes, bladder or bowel incontinence PSYCHIATRIC: Absent: anxiety, depression, suicidal or homicidal ideation, hallucinations. PHYSICAL EXAMINATION Vital Signs - 24 hr 10/05/17 21:51 Temperature 98.1 F Pulse Rate 72 Respiratory 18 Rate Blood Pressure 129/88 O2 Sat by Pulse 94 L Oximetry (%) GENERAL: AAOx3 in NAD HEAD: NC/AT EYES: PASCUAL, EOMI,, sclera anicteric, conjunctiva clear. EARS, NOSE, THROAT: Ears normal, nares patent, oropharynx clear without exudates. Moist mucous membranes. NECK: Normal range of motion, supple LUNGS: Breath sounds equal, clear to auscultation bilaterally. No wheezes, and no crackles. No accessory muscle use. HEART: Regular rate and rhythm, normal S1 and S2 without murmur, rub or gallop. ABDOMEN: Obese,Soft, nontender, not distended, normoactive bowel sounds, no guarding, no rebound, periumbilical hernia , no cva tenderness UPPER EXTREMITIES: 2+ pulses, warm, well-perfused. No cyanosis. No clubbing. No peripheral edema.left shoulder tenderness and limited ROM due to pain (previous shoulder surgery), right arm strength 5/5 , sensation intact ,left arm sensation intact , distal arm strength 5/5 , proximal limited due to pain LOWER EXTREMITIES: 2+ pulses, warm, well-perfused. No calf tenderness. No peripheral edema. sensation intact B/L , Strength 5/5 B/L proximal and distal , left foot toe limited ROM (chronic ), foot plantar flexion and extension 5/5 B/ L NEUROLOGICAL: Cranial nerves II-XII intact. Normal speech. gait not observed , limited shrug shoulder on left side due to pain .no facial asymmetry, no focal deficit PSYCHIATRIC: Cooperative. Good eye contact. Appropriate mood and affect. SKIN: Warm, dry, Laboratory Results - last 24 hr 10/06/17 10/06/17 10/06/17 00:23 00:23 00:23 WBC 12.5 H RBC 4.76 Hgb 14.1 Hct 42.3 MCV 88.7 MCH 29.6 MCHC 33.4 RDW 14.5 Plt Count 195 MPV 9.6 D Absolute Neuts (auto) 6.3 Neutrophils % 50.5 D Lymphocytes % 36.0 D Monocytes % 7.7 Eosinophils % 3.9 Basophils % 1.9 Nucleated RBC % 0 Platelet Estimate Adequate Platelet Comment Giant platelets PT with INR 10.60 INR 0.94 Sodium 140 Potassium 4.3 Chloride 102 Carbon Dioxide 32 Anion Gap 6 L BUN 15 Creatinine 1.1 H Creat Clearance w eGFR 49.25 Random Glucose 100 Calcium 9.3 Total Bilirubin 0.3 AST 20 ALT 24 Alkaline Phosphatase 98 Creatine Kinase 107 Troponin I < 0.02 Total Protein 7.9 Albumin 4.0 Triglycerides 179 H Cholesterol 227 H Total LDL Cholesterol 153 H HDL Cholesterol 50 Urine Color Urine Appearance Urine pH Ur Specific Boh[place] Urine Protein Urine Glucose (UA) Urine Ketones Urine Blood Urine Nitrite Urine Bilirubin Urine Urobilinogen Ur Leukocyte Esterase Urine WBC (Auto) Urine RBC (Auto) Ur Epithelial Cells Urine Bacteria Blood Type Antibody Screen 10/06/17 10/06/17 00:23 01:26 WBC RBC Hgb Hct MCV MCH MCHC RDW Plt Count MPV Absolute Neuts (auto) Neutrophils % Lymphocytes % Monocytes % Eosinophils % Basophils % Nucleated RBC % Platelet Estimate Platelet Comment PT with INR INR Sodium Potassium Chloride Carbon Dioxide Anion Gap BUN Creatinine Creat Clearance w eGFR Random Glucose Calcium Total Bilirubin AST ALT Alkaline Phosphatase Creatine Kinase Troponin I Total Protein Albumin Triglycerides Cholesterol Total LDL Cholesterol HDL Cholesterol Urine Color Yellow Urine Appearance Clear Urine pH 6.0 Ur Specific [place] 1.020 Urine Protein Negative Urine Glucose (UA) Negative Urine Ketones Negative Urine Blood Negative Urine Nitrite Positive Urine Bilirubin Negative Urine Urobilinogen Negative Ur Leukocyte Esterase Trace Urine WBC (Auto) 22 Urine RBC (Auto) <1 Ur Epithelial Cells Few Urine Bacteria Moderate Blood Type A POSITIVE Antibody Screen Negative CBC, BMP 10/06/17 00:23 10/06/17 00:23 EKG: NSR Head CT : no acute pathology ASSESSMENT/PLAN: 71F senior living resident extensive PMH HTN, HLD, CAD s/p stent x 2, [place], Hep C, seizure disorder, colon ca. s/p ressection, SBO x 3, BL hip replacements, CVA long time ago? who presents to the ER due to acute dysphagia and was admitted to obs -tele to R/O TIA/stroke # Dysphagia R/O CVA /TIA more likely isolated dysphagia * pt presented with sudden dysphagia for solid and liquid since 7 pm yesterday( I could not swallow my saliva ) , had similar episode but did not last this long * Head CT w/o contrast negative * MRI pending * Neuroconsult Dr Rockwell recommen ach antibodies amd cpk * Lipid panel * NPO * speech and swallow eval * consider ENT consult # UTI * UA + nitrite , trace LE, 12 WBC * started on ceftriaxone In ED , cont * Urine cx * denies any fever, chills, burning sensation. #h/o seizure disorder * c/w home Keppra #HTN * c/w Coreg #MDD/anxiety * c/w home meds #GERD * c/w home Protonix #chronic pain * c/w Percocet 10-325 TID PRN #FEN * NS 75 CC/hr * E: monitor BMP * NPO #PPX * DVTS : HSQ Q8H * GI: home Protonix #DIPO: obs tele FULL code Hospitalist Screening - Colonoscopy Questionnaire Colonoscopy Questionnaire: Colonoscopy Questionnaire
[2017-10-06] MEDS ORDERED: METHADONE HCL 5 MG TABLET PO ONE (06:00)
[2017-10-06] MEDS ORDERED: diphenhydrAMINE HCL 25 MG CAPSULE (FP) PO PRN (06:14)
[2017-10-06] MEDS ORDERED: MAGNESIUM HYDROX 2400MG/30ML ORAL SUSPENSION 30 ML CUP PO PRN (06:14)
[2017-10-06] MEDS ORDERED: ACETAMINOPHEN 325 MG TABLET (FP) PO PRN (06:14)
--- NOTE | 2017-10-06 06:17 | PN ---
Teaching Attending Note Name of Resident: Danilo Andrews ATTENDING PHYSICIAN STATEMENT I saw and evaluated the patient. I reviewed the resident's note and discussed the case with the resident. I agree with the resident's findings and plan as documented. SUBJECTIVE: OBJECTIVE: ASSESSMENT AND PLAN: patient was admitted for the inability to swallow, that started yesterday after she had dinner at 5, and the swallowing problem started at 6pm patient contributed the issue to her dry mouth, according to her she had this problem before but never lasted for that long. she is being admitted for the evaluation of TIA vs CVA plan: neurology evaluation npo ifthe symptoms dont resolve patient should be evaluated by speech and swallow
[2017-10-06] MEDS: HEPARIN NA (PORCINE) 5,000 UNITS/ML 1ML VIAL SQ SCH ×3 (07:43→22:26)
[2017-10-06] MEDS ORDERED: HEPARIN NA (PORCINE) 5,000 UNITS/ML 1ML VIAL ONE (07:44)
[2017-10-06 08:40] VITALS: BMI 29.7
--- NOTE | 2017-10-06 08:47 | CON.NEURO ---
Consult - Past Medical History ...: No - Alcohol/Substance Use Hx Alcohol Use: No - Smoking History Smoking history: Current every day smoker Have you smoked in the past 12 months: Yes Aproximately how many cigarettes per day: 1 Home Medications - Allergies Allergies/Adverse Reactions: Allergies Allergy/AdvReac Type Severity Reaction Status Date / Time sumatriptan [From Imitrex] Allergy Severe Verified 10/05/17 21:58 sumatriptan succinate Allergy Severe Verified 10/05/17 21:58 [From Imitrex] nitroglycerin AdvReac Severe Verified 10/05/17 21:58 - Home Medications Home Medications: Ambulatory Orders Acetaminophen [Tylenol] 650 mg PO Q6H PRN 12/25/16 Carvedilol [Coreg] 6.25 mg PO BID 12/25/16 Citalopram Hydrobromide [Celexa -] 40 mg PO DAILY 12/25/16 Magnesium Hydrox 2400MG/30Ml [Milk of Magnesia -] 30 ml PO Q48H PRN 12/25/16 Protonix - 40 mg PO DAILY 12/25/16 levETIRAcetam [Keppra -] 500 mg PO BID 12/25/16 traZODone HCL [Desyrel -] 100 mg PO HS 12/25/16 Diphenhydramine HCl [Benadryl Capsule -] 25 mg PO Q6H PRN 06/28/17 Duloxetine HCl [Cymbalta] 60 mg PO DAILY 06/28/17 Melatonin 3 mg PO HS 06/28/17 Meloxicam [Mobic] 15 mg PO DAILY 06/28/17 Tolterodine Tartrate [Detrol LA] 2 mg PO DAILY 06/28/17 Naproxen 250 mg PO Q12H PRN #8 tablet 06/29/17 Methadone [Dolophine -] 5 mg PO BID 10/05/17 Physical Exam-Neuro Vital Signs: Vital Signs Temperature 98.3 F 10/06/17 08:24 Pulse Rate 78 10/06/17 08:24 Respiratory Rate 20 10/06/17 08:24 Blood Pressure 143/89 10/06/17 08:24 O2 Sat by Pulse Oximetry (%) 95 10/06/17 06:34 Labs: CBC, BMP 10/06/17 00:23 10/06/17 00:23 INR, PTT INR 0.94 (0.83-1.09) 10/06/17 00:23 Assessment/Plan cc Sudden onset difficulty swallowing HPI 71 year old female, NH resident for five years for different fractures and bilateral hip replacement. She has history of HTN,HLD,CAD,[place] , Hep C , Epilepsy , colon cancer. She has been complaining of difficulty swalling. She could not swallow solid or liquid. She do get choking feeling. She denies any pain during swallowing. It has been happen to hear before in last two years. She did recover in 15 minute. When it was not recovering she came to hospital. She was given liquid in hopsital and she has choking symptoms. She denies any other focal neurological symptoms, including diplopia, weakness, sensory loss or headhace or seizure. Initial ct head is noraml PAST MEDICAL HISTORY: HTN, HLD, CAD s/p stent x 2, [place], Hep C, seizure disorder, colon ca. s/p resection, SBO x 3, chronic hip pain, BL hip replacements PAST SURGICAL HISTORY: B/L hip replacement , colon resection Social History: Smokin-2 cig Alcohol:denies Drugs: denies Family History: non contributory Allergies sumatriptan [From Imitrex] Allergy (Severe, Verified 10/05/17 21:58) CHEST PAIN sumatriptan succinate [From Imitrex] Allergy (Severe, Verified 10/05/17 21:58) CHEST PAIN nitroglycerin Adverse Reaction (Severe, Verified 10/05/17 21:58) SEVERE MIGRAINE HEADACHE HOME MEDICATIONS: Home Medications Medication Instructions Recorded Acetaminophen [Tylenol] 650 mg PO Q6H PRN 12/25/16 Carvedilol [Coreg] 6.25 mg PO BID 12/25/16 Citalopram Hydrobromide [Celexa -] 40 mg PO DAILY 12/25/16 Magnesium Hydrox 2400MG/30Ml [Milk 30 ml PO Q48H PRN 12/25/16 of Magnesia -] Protonix - 40 mg PO DAILY 12/25/16 levETIRAcetam [Keppra -] 500 mg PO BID 12/25/16 traZODone HCL [Desyrel -] 100 mg PO HS 12/25/16 Diphenhydramine HCl [Benadryl 25 mg PO Q6H PRN 06/28/17 Capsule -] Duloxetine HCl [Cymbalta] 60 mg PO DAILY 06/28/17 Melatonin 3 mg PO HS 06/28/17 Meloxicam [Mobic] 15 mg PO DAILY 06/28/17 Tolterodine Tartrate [Detrol LA] 2 mg PO DAILY 06/28/17 Naproxen 250 mg PO Q12H PRN #8 tablet 06/29/17 Methadone [Dolophine -] 5 mg PO BID 10/05/17 Neurological Examination Alert oriented x 3, pupils reactive, no motor weakness, no face asymmetry motor strenght is noraml5/5 there is pain on moving left leg and left shoulder pain otherwise strength is normal, sensation is noraml choking sensation with liquid ct head is noraml Assessment- sudden onset painless Isolated dyphagia without any other focal neurological symptoms, had two more episode in past, cpk is normal and ct head is noraml. she is claustrophobia and cant get mri. CLinically less likley to be stroke- Plan- suggest to do mri of brain if she can tolerate with ativan, other repeat ct head in 24 hour - ENT consult - Speech consult -Acetylcholine receptor antibodies - continue current level of care, once stroke is confirmed, consider work up and statin and asprin at that time Thanking you so much Sg Rockwell MD
[2017-10-06] MEDS: MORPHINE SULFATE 2 MG/ML VIAL IVPUSH PRN ×4 (09:02→22:24)
[2017-10-06] MEDS ORDERED: PATIENT'S OWN MEDICATION (NON-FORMULARY) (Meloxicam [Mobic] 15 MG) PO SCH (10:00)
[2017-10-06] MEDS ORDERED: CEFTRIAXONE 1 GM in DEXTROSE 5%-WATER - 50 ML IVPB SCH (10:00)
[2017-10-06] MEDS ORDERED: CEFTRIAXONE 1 GM in DEXTROSE 5%-WATER - 100 ML IVPB SCH (10:00)
[2017-10-06] MEDS: DULoxetine HCL 30 MG CAPSULE.DR (FP) PO SCH (10:48)
[2017-10-06] MEDS: CITALOPRAM HYDROBROMIDE 20 MG TABLET (FP) PO SCH (10:48)
[2017-10-06] MEDS: CARVEDILOL 6.25 MG TABLET (FP) PO SCH ×2 (10:48→22:24)
[2017-10-06] MEDS: TOLTERODINE TARTRATE LA 2 MG CAP.SR.24H PO SCH (10:48)
[2017-10-06] MEDS: levETIRAcetam 500 MG/5 ML INJECTION VIAL IVPB SCH ×3 (10:49→22:23)
[2017-10-06] MEDS: METHADONE HCL 5 MG TABLET PO SCH ×2 (11:02→22:24)
[2017-10-06] MEDS: PANTOPRAZOLE SODIUM 40 MG VIAL IVPB SCH (11:03)
--- NOTE | 2017-10-06 11:39 | HOSP ---
Subjective - Review of Symptoms Subjective: c/o difficulty swallowing. says she cant control her secretions. says she had similiar episodes in the past but never lasting longer than a few minutes. denies Cp, SOB, fever, chills, N/V/C/D Current Medications Generic Name Dose Route Start Last Admin Trade Name Freq PRN Reason Stop Dose Admin Acetaminophen 650 mg 10/06/17 06:14 Tylenol - PO Q6H PRN PAIN Carvedilol 6.25 mg 10/06/17 10:00 10/06/17 10:48 Coreg - PO Not Given BID [facility] Citalopram Hydrobromide 40 mg 10/06/17 10:00 10/06/17 10:48 Celexa - PO Not Given DAILY APURVA Diphenhydramine HCl 25 mg 10/06/17 06:14 Benadryl - PO Q6H PRN pruritus Duloxetine HCl 60 mg 10/06/17 10:00 10/06/17 10:48 Cymbalta - PO Not Given DAILY [facility] Heparin Sodium (Porcine) 5,000 unit 10/06/17 06:45 10/06/17 07:43 Heparin - SQ 5,000 unit TID APURVA Administration Sodium Chloride 1,000 mls @ 83 mls/hr 10/06/17 06:00 10/06/17 06:34 Normal Saline - IV 83 mls/hr ASDIR APURVA Administration Ceftriaxone Sodium 1 gm/ 50 mls @ 200 mls/hr 10/07/17 10:00 Dextrose IVPB DAILY [facility] Protocol Levetiracetam 500 mg 10/06/17 10:00 10/06/17 11:03 Keppra Injection - IVPB 500 mg BID APURVA Administration Magnesium Hydroxide 30 ml 10/06/17 06:14 Milk Of Magnesia - PO Q48H PRN CONSTIPATION Melatonin 3 mg 10/06/17 22:00 Melatonin PO HS [facility] Methadone HCl 5 mg 10/06/17 10:00 10/06/17 11:02 Dolophine - PO Not Given BID [facility] Morphine Sulfate 2 mg 10/06/17 06:00 10/06/17 09:02 Morphine Sulfate IVPUSH 2 mg Q4H PRN Administration PAIN LEVEL 4 - 6 Non-Formulary Medication 15 mg 10/06/17 10:00 Meloxicam [Mobic] PO DAILY [facility] Pantoprazole Sodium 40 mg 10/06/17 10:00 10/06/17 11:03 Protonix Iv IVPB 40 mg DAILY APURVA Administration Tolterodine Tartrate 2 mg 10/06/17 10:00 10/06/17 10:48 Detrol La - PO Not Given DAILY [facility] Trazodone HCl 100 mg 10/06/17 22:00 Desyrel - PO HS [facility] Last Vital Signs Temp Pulse Resp BP Pulse Ox 98.3 F 78 20 143/89 95 10/06/17 08:24 10/06/17 08:24 10/06/17 08:24 10/06/17 08:24 10/06/17 06:34 General NAD, speaking in clear sentences, no drooling, no choking HEENT pharynx is clear not injected, no exudate, no LN CV S1 S2 RRR no murmur/rub/gallop Neuro CN grossly intact. neg pronator drift. strength and sensation is grossly intact CBCD WBC 12.5 K/mm3 (4.0-10.0) H 10/06/17 00:23 RBC 4.76 M/mm3 (3.60-5.2) 10/06/17 00:23 Hgb 14.1 GM/dL (10.7-15.3) 10/06/17 00:23 Hct 42.3 % (32.4-45.2) 10/06/17 00:23 MCV 88.7 fl (80-96) 10/06/17 00:23 MCHC 33.4 g/dl (32.0-36.0) 10/06/17 00:23 RDW 14.5 % (11.6-15.6) 10/06/17 00:23 Plt Count 195 K/MM3 (134-434) 10/06/17 00:23 MPV 9.6 fl (7.5-11.1) D 10/06/17 00:23 CMP Sodium 140 mmol/L (136-145) 10/06/17 00:23 Potassium 4.3 mmol/L (3.5-5.1) 10/06/17 00:23 Chloride 102 mmol/L (98-107) 10/06/17 00:23 Carbon Dioxide 32 mmol/L (21-32) 10/06/17 00:23 Anion Gap 6 MMOL/L (8-16) L 10/06/17 00:23 BUN 15 mg/dL (7-18) 10/06/17 00:23 Creatinine 1.1 mg/dL (0.55-1.02) H 10/06/17 00:23 Creat Clearance w eGFR 49.25 (>60) 10/06/17 00:23 Calcium 9.3 mg/dL (8.5-10.1) 10/06/17 00:23 Total Bilirubin 0.3 mg/dL (0.2-1.0) 10/06/17 00:23 AST 20 U/L (15-37) 10/06/17 00:23 ALT 24 U/L (12-78) 10/06/17 00:23 Alkaline Phosphatase 98 U/L (45-117) 10/06/17 00:23 Total Protein 7.9 g/dl (6.4-8.2) 10/06/17 00:23 Albumin 4.0 g/dl (3.4-5.0) 10/06/17 00:23 A/P 71yo F with PMH HTN, dyslipidemia, CAD, HCV, colon cancer presented to the ER with sudden onset of dysphagia 1. Dysphagia- possible esophageal spasm. states she can not control her secretions or swallow anything however is noted to not be drooling. refusing to allow me to check for gag reflex. NPO, speech and swallow eval 2. Acute L MCA stroke- seen on CT. no neurological deficits. doubt her symptom is consistent with stroke. refusing to go for MRI due to claustiphobia. will check echo, carotid doppler. PT eval. Neuro on board. stating there is no new CVA, unclear if possible he read prelim reading and it was changed. will start asa 3. UTI- started on ceftriaxone day 1. f/u Cx 4. IGGY- dehydration vs medication effect. on ivf. avoid nephrotoxic agents. trend 5. HTN- controlled. cont home regimen 6. HCV- unclear if treated 7. chronic pain- on methadone. confirmed dose 8. colon ca- outpatient follow up 9. DVT ppx- hep sq Physical Examination Vital Signs: Vital Signs Temperature 98.3 F 10/06/17 08:24 Pulse Rate 78 10/06/17 08:24 Respiratory Rate 20 10/06/17 08:24 Blood Pressure 143/89 10/06/17 08:24 O2 Sat by Pulse Oximetry (%) 95 10/06/17 06:34 Labs: CBC, BMP 10/06/17 00:23 10/06/17 00:23
[2017-10-06] MEDS: CEFTRIAXONE 1 GM in DEXTROSE 5%-WATER - 50 ML IVPB SCH (12:44)
[2017-10-06] MEDS: ASPIRIN COATED 81 MG TABLET.EC PO SCH (14:37)
--- NOTE | 2017-10-06 19:05 | EKG ---
Test Reason : Blood Pressure : / mmHG Vent. Rate : 079 BPM Atrial Rate : 079 BPM P-R Int : 186 ms QRS Dur : 078 ms QT Int : 398 ms P-R-T Axes : 060 023 054 degrees QTc Int : 456 ms NORMAL SINUS RHYTHM NORMAL ECG WHEN COMPARED WITH ECG OF 01-JUL-2017 02:22, NO SIGNIFICANT CHANGE WAS FOUND Confirmed by JORDON SANDOVAL MD ([id number]) on 10/06/2017 7:04:57 PM Referred By: Confirmed By:JORDON SANDOVAL MD
[2017-10-06] MEDS: traZODone HCL 100 MG TABLET (FP) PO SCH (22:24)
[2017-10-06] MEDS: MELATONIN 1 MG TABLET PO SCH (22:26)
[2017-10-07] MEDS: SODIUM CHLORIDE 1,000 ML IV SCH (01:00)
[2017-10-07] MEDS: MORPHINE SULFATE 2 MG/ML VIAL IVPUSH PRN ×4 (05:57→20:38)
[2017-10-07] MEDS: HEPARIN NA (PORCINE) 5,000 UNITS/ML 1ML VIAL SQ SCH ×3 (05:57→21:50)
[2017-10-07 07:01] LABS: BASO % 0.9 % (0-2.0); EOS % 4.9 % (0-4.5); HEMATOCRIT 36.1 % (32.4-45.2); HEMOGLOBIN 11.9 GM/dL (10.7-15.3); LYMPH % 41.9 % (8-40); MCH 29.4 pg (25.7-33.7); MEAN CELL VOLUME 89.1 fl (80-96); MONO % 7.3 % (3.8-10.2); PLATELET COUNT 108 K/MM3 (134-434); RBC 4.05 M/mm3 (3.60-5.2); RDW 14.2 % (11.6-15.6); WHITE BLOOD COUNT 4.2 K/mm3 (4.0-10.0)
--- NOTE | 2017-10-07 07:20 | PN ---
Progress Note (short form) - Note Progress Note: cc Sudden onset difficulty swallowing HPI 71 year old female, NH resident for five years for different fractures and bilateral hip replacement. She has history of HTN,HLD,CAD,[place] , Hep C , Epilepsy , colon cancer. She has been complaining of difficulty swalling. She could not swallow solid or liquid. She do get choking feeling. She denies any pain during swallowing. It has been happen to hear before in last two years. She did recover in 15 minute. When it was not recovering she came to hospital. She was given liquid in hopsital and she has choking symptoms. She denies any other focal neurological symptoms, including diplopia, weakness, sensory loss or headhace or seizure. Patient continue to have symptms, she is npo but she is able to swallow three ounces of water , there was no choking. mri cant be done Neurological Examination Alert oriented x 3, pupils reactive, no motor weakness, no face asymmetry motor strenght is noraml5/5 there is pain on moving left leg and left shoulder pain otherwise strength is normal, sensation is noraml she was given three ounces of water, and she was able to swallow without choking ct head reported as one slice there is possible, To me it appears to be normal, she cant get mri and would repeat ct head Assessment- sudden onset painless Isolated dyphagia without any other focal neurological symptoms, had two more episode in past, cpk is normal andshe is claustrophobia and cant get mri. CLinically less likley to be stroke- she is able to swallow at bed side, and there was no choking. Plan- repeat ct head , cant get mri - ENT consult - Speech consult -Acetylcholine receptor antibodies - Thanking you so much Sg Rockwell MD
[2017-10-07 07:26] LABS: INR 1.04 (0.83-1.09); PROTHROMBIN TIME (PATIENT) 11.8 SEC (9.7-13.0)
[2017-10-07 07:29] LABS: ACTIVATED PTT 28.1 SECONDS (25.2-36.5)
[2017-10-07 08:22] LABS: CALCIUM 8.1 mg/dL (8.5-10.1); CHLORIDE 111 mmol/L (98-107); SODIUM 144 mmol/L (136-145)
[2017-10-07 08:28] LABS: ALK PHOS 74 U/L (45-117); ANION GAP 8 MMOL/L (8-16); BILIRUBIN,TOTAL 0.3 mg/dL (0.2-1.0); BLOOD UREA NITROGEN 11 mg/dL (7-18); CO2 25 mmol/L (21-32); CREATININE 0.6 mg/dL (0.55-1.02); GLUCOSE,RANDOM 75 mg/dL (74-106); PHOSPHOROUS 3.3 mg/dL (2.5-4.9); SGPT/ALT 27 U/L (12-78); TOT PROT 5.8 g/dl (6.4-8.2)
[2017-10-07 08:32] LABS: MAGNESIUM 1.7 mg/dL (1.8-2.4); POTASSIUM 4.1 mmol/L (3.5-5.1); SGOT/AST 29 U/L (15-37)
--- NOTE | 2017-10-07 09:58 | PN ---
Teaching Attending Note Name of Resident: Danis Leon ATTENDING PHYSICIAN STATEMENT I saw and evaluated the patient. I reviewed the resident's note and discussed the case with the resident. I agree with the resident's findings and plan as documented. SUBJECTIVE:staes she feels like she can all of a sudden control her secretions. wants to try to eat. denies Cp, SOB, fever, chills, N/V/C/D, weakness or numbness wants to return to [facility] today OBJECTIVE: Last Vital Signs Temp Pulse Resp BP Pulse Ox 98.6 F 76 18 141/75 97 10/07/17 05:59 10/07/17 05:59 10/07/17 05:59 10/07/17 05:59 10/06/17 21:00 General NAD HEENT no drooling, no tracheal deviation. no LN, no stridor ASSESSMENT AND PLAN: 11yo F with PMH HTN, dyslipidemia, CAD, HCV, colon cancer presented to the ER with sudden onset of dysphagia 1. Dysphagia- possible esophageal spasm. now symptoms have resolved. will advance to liquid diet and see how she tolerated. swallow therapist not available on the weekend. would need to f/u [facility] for eval for possible esophageal spasm. 2. Acute L MCA stroke- spoke with neuro who does not agree with CT reading as lesion only seen in single image. symptoms are not consistent with CVA. will see if needs further monitoring. carotid doppler negative 3. UTI- on ceftriaxone day 2. f/u Cx 4. IGGY- dehydration vs medication effect. d/c IVF. avoid nephrotoxic agents. trend 5. HTN- controlled. cont home regimen 6. HCV- unclear if treated 7. chronic pain- on methadone. confirmed dose 8. colon ca- outpatient follow up 9. DVT ppx- hep sq 10. will see if [facility] excepts back on the weekends. pending tolerating diet and results of head CT
[2017-10-07] MEDS ORDERED: CEFTRIAXONE 1 GM in DEXTROSE 5%-WATER - 50 ML IVPB SCH (10:00)
[2017-10-07] MEDS ORDERED: DEXTROSE 5%-WATER - 50 ML IVPB ONE (10:57)
[2017-10-07] MEDS ORDERED: cefTRIAXone SODIUM 1 GM VIAL ONE (10:57)
[2017-10-07] MEDS: PANTOPRAZOLE SODIUM 40 MG VIAL IVPB SCH (10:59)
[2017-10-07] MEDS: CEFTRIAXONE 1 GM in DEXTROSE 5%-WATER - 50 ML IVPB SCH (10:59)
[2017-10-07] MEDS: levETIRAcetam 500 MG/5 ML INJECTION VIAL IVPB SCH ×2 (10:59→21:51)
[2017-10-07] MEDS: ASPIRIN COATED 81 MG TABLET.EC PO SCH (11:00)
[2017-10-07] MEDS: CITALOPRAM HYDROBROMIDE 20 MG TABLET (FP) PO SCH (11:00)
[2017-10-07] MEDS: CARVEDILOL 6.25 MG TABLET (FP) PO SCH ×2 (11:00→21:49)
[2017-10-07] MEDS: METHADONE HCL 5 MG TABLET PO SCH ×2 (11:00→21:52)
[2017-10-07] MEDS: DULoxetine HCL 30 MG CAPSULE.DR (FP) PO SCH (11:00)
[2017-10-07] MEDS: TOLTERODINE TARTRATE LA 2 MG CAP.SR.24H PO SCH (11:01)
--- NOTE | 2017-10-07 11:29 | PN ---
Physical Exam: SUBJECTIVE: Patient seen and examined at bedside. No acute events. Pt states her symptoms have resolved and would like to go back to [facility]. OBJECTIVE: Vital Signs Period Temp Pulse Resp BP Sys/Gomez Pulse Ox Last 24 Hr 98.0 F-98.6 F 76-81 18-20 128-158/71-83 97 Gen: nad, lying in bed HEENT: NCAT, PERRL, EOMI Neck: supple, no jvd, no bruits Cardio: rrr, normal s1s2, 3/6 sys murmur LUSB Pulm: cta b/l abd: soft, nontender, nondistended, + bs ext: 2+ pulses, no edema Neuro: CN 2-12 intact, strength uniformly 4/5 throughout, sensation intact. No focal deficits Laboratory Results - last 24 hr 10/07/17 10/07/17 10/07/17 05:30 05:30 05:30 WBC 4.2 RBC 4.05 Hgb 11.9 Hct 36.1 MCV 89.1 MCH 29.4 MCHC 33.0 RDW 14.2 Plt Count 108 L D MPV 9.0 Absolute Neuts (auto) 1.9 Neutrophils % 45.0 Lymphocytes % 41.9 H Monocytes % 7.3 Eosinophils % 4.9 H Basophils % 0.9 Nucleated RBC % 0 PT with INR 11.80 INR 1.04 PTT (Actin FS) 28.1 Sodium 144 Potassium 4.1 Chloride 111 H Carbon Dioxide 25 Anion Gap 8 BUN 11 Creatinine 0.6 Creat Clearance w eGFR > 60 Random Glucose 75 Calcium 8.1 L Phosphorus 3.3 Magnesium 1.7 L Total Bilirubin 0.3 AST 29 ALT 27 Alkaline Phosphatase 74 D Total Protein 5.8 L D Albumin 3.0 L Active Medications Generic Name Dose Route Start Last Admin Trade Name Freq PRN Reason Stop Dose Admin Acetaminophen 650 mg 10/06/17 06:14 Tylenol - PO Q6H PRN PAIN Aspirin 81 mg 10/06/17 14:30 10/07/17 11:00 Ecotrin - PO 81 mg DAILY APURVA Administration Carvedilol 6.25 mg 10/06/17 10:00 10/07/17 11:00 Coreg - PO 6.25 mg BID APURVA Administration Citalopram Hydrobromide 40 mg 10/06/17 10:00 10/07/17 11:00 Celexa - PO 40 mg DAILY APURVA Administration Diphenhydramine HCl 25 mg 10/06/17 06:14 Benadryl - PO Q6H PRN pruritus Duloxetine HCl 60 mg 10/06/17 10:00 10/07/17 11:00 Cymbalta - PO 60 mg DAILY APURVA Administration Heparin Sodium (Porcine) 5,000 unit 10/06/17 06:45 10/07/17 05:57 Heparin - SQ 5,000 unit TID APURVA Administration Ceftriaxone Sodium 1 gm/ 50 mls @ 100 mls/hr 10/06/17 11:45 10/07/17 10:59 Dextrose IVPB 100 mls/hr DAILY APURVA Administration Protocol Levetiracetam 500 mg 10/06/17 10:00 10/07/17 10:59 Keppra Injection - IVPB 500 mg BID APURVA Administration Magnesium Hydroxide 30 ml 10/06/17 06:14 Milk Of Magnesia - PO Q48H PRN CONSTIPATION Melatonin 3 mg 10/06/17 22:00 10/06/17 22:26 Melatonin PO Not Given HS APURVA Methadone HCl 5 mg 10/06/17 10:00 10/07/17 11:00 Dolophine - PO 5 mg BID APURVA Administration Morphine Sulfate 2 mg 10/06/17 15:41 10/07/17 10:05 Morphine Sulfate IVPUSH 2 mg Q4H PRN Administration PAIN LEVEL 7 - 10 Pantoprazole Sodium 40 mg 10/06/17 10:00 10/07/17 10:59 Protonix Iv IVPB 40 mg DAILY APURVA Administration Rosuvastatin Calcium 40 mg 10/07/17 22:00 Crestor - PO HS APURVA Tolterodine Tartrate 2 mg 10/06/17 10:00 10/07/17 11:01 Detrol La - PO 2 mg DAILY APURVA Administration Trazodone HCl 100 mg 10/06/17 22:00 10/06/17 22:24 Desyrel - PO Not Given HS APURVA ASSESSMENT/PLAN: Pt is a 71 y/o F with PMH HTN, HLD, CAD s/p stent x 2, [place], Hep C, seizure disorder, colon ca. s/p ressection, SBO x 3, chronic hip pain, BL hip replacement who presented to ED with complaint of difficulty swallowing. #R/O CVA -initial head CT with attenuation noted on 1 slice -repeat head CT normal -Pt refusing MRI -neuro exam unremarkable. Normal speech, no droop -Echo pending -lipids elevated -ASA #dysphagia: RESOLVED -r/o CVA -no drooling noted on PE -pt states she has been feeling anxious and feels that contributes -Speech and Swallow consulted #UTI -pt asymptomatic -UA pos -UCx negative -Rocephin #HTN -c/w home Coreg #Seizure disorder -c/w home keppra #anxiety/depression -c/w home celexa, cymbalta, desyrel #hx substance use disorder -c/w methodone #FEN -no NS -lytes wnl -clears #PPx -Hep subQ #Dispo -from Thong Leon MD PGY-2 IM Visit type - Emergency Visit Emergency Visit: No - New Patient This patient is new to me today: Yes Date on this admission: 10/07/17 - Critical Care Critical Care patient: No - Discharge Referral Referred to [facility] No
[2017-10-07] MEDS ORDERED: traZODone HCL 50 MG TABLET (FP) ONE (21:38)
[2017-10-07] MEDS: traZODone HCL 100 MG TABLET (FP) PO SCH (21:50)
[2017-10-07] MEDS: MELATONIN 1 MG TABLET PO SCH (21:50)
[2017-10-07] MEDS ORDERED: ROSUVASTATIN CA 20 MG TABLET (FP) PO SCH (22:00)
[2017-10-08] MEDS: MORPHINE SULFATE 2 MG/ML VIAL IVPUSH PRN ×4 (01:00→14:40)
[2017-10-08] MEDS: HEPARIN NA (PORCINE) 5,000 UNITS/ML 1ML VIAL SQ SCH ×2 (05:45→14:13)
[2017-10-08 07:58] LABS: BASO % 0.9 % (0-2.0); EOS % 4.9 % (0-4.5); HEMATOCRIT 36.6 % (32.4-45.2); HEMOGLOBIN 12.3 GM/dL (10.7-15.3); MCH 29.8 pg (25.7-33.7); MCHC 33.7 g/dl (32.0-36.0); MEAN CELL VOLUME 88.6 fl (80-96); MEAN PLT VOLUME 8.7 fl (7.5-11.1); MONO % 8.9 % (3.8-10.2); NEUT % 46.3 % (42.8-82.8); PLATELET COUNT 124 K/MM3 (134-434); RBC 4.13 M/mm3 (3.60-5.2); RDW 14.8 % (11.6-15.6); WHITE BLOOD COUNT 5.2 K/mm3 (4.0-10.0)
[2017-10-08 08:11] LABS: ANION GAP 7 MMOL/L (8-16); BLOOD UREA NITROGEN 10 mg/dL (7-18); CALCIUM 8.5 mg/dL (8.5-10.1); CHLORIDE 108 mmol/L (98-107); CO2 27 mmol/L (21-32); GLUCOSE,RANDOM 89 mg/dL (74-106); MAGNESIUM 1.5 mg/dL (1.8-2.4); POTASSIUM 3.9 mmol/L (3.5-5.1); SODIUM 142 mmol/L (136-145)
[2017-10-08 08:15] LABS: ALK PHOS 70 U/L (45-117); BILIRUBIN,TOTAL 0.3 mg/dL (0.2-1.0); CREATININE 0.7 mg/dL (0.55-1.02); PHOSPHOROUS 3.3 mg/dL (2.5-4.9); SGOT/AST 21 U/L (15-37); SGPT/ALT 21 U/L (12-78); TOT PROT 5.9 g/dl (6.4-8.2)
[2017-10-08] MEDS ORDERED: MAGNESIUM 2GM/50ML STERILE WATER IVPB IVPB ONE (08:22)
[2017-10-08] MEDS ORDERED: DEXTROSE 5%-WATER - 50 ML IVPB ONE (08:44)
[2017-10-08] MEDS ORDERED: cefTRIAXone SODIUM 1 GM VIAL ONE (08:44)
[2017-10-08 09:03] VITALS: BP 123/78; PULSE 70; TEMP 98.1
--- NOTE | 2017-10-08 09:54 | PN ---
Progress Note (short form) - Note Progress Note: HPI 71 year old female, [place] resident for five years for different fractures and bilateral hip replacement. She has history of HTN,HLD,CAD,GA , Hep C , Epilepsy , colon cancer. She has been complaining of difficulty swalling. She could not swallow solid or liquid. She do get choking feeling. She denies any pain during swallowing. It has been happen to hear before in last two years. She did recover in 15 minute. When it was not recovering she came to hospital. She was given liquid in hopsital and she has choking symptoms. She denies any other focal neurological symptoms, including diplopia, weakness, sensory loss or headhace or seizure. Patient continue to have symptms, she is npo but she is able to swallow three ounces of water , there was no choking. mri cant be done SUBJECTIVE: She is able to eat dinner and eat breastfast and she is eating normal diet. Her repeat ct head was unremarkable. Neurological Examination Alert oriented x 3, pupils reactive, no motor weakness, no face asymmetry motor strenght is noraml5/5 there is pain on moving left leg and left shoulder pain otherwise strength is normal, sensation is noraml she was given three ounces of water, and she was able to swallow without choking on October 07 and now eating normal diet ct head reported as one slice there is possible, ct head repeat was unremarkable and no evidence fo acute stroke Assessment- sudden onset painless Isolated dyphagia without any other focal neurological symptoms, had two more episode in past, cpk is normal andshe is claustrophobia and cant get mri. As per patient anxiety make it worse. Feeling of choking and dyphagia could be related to anxiety. no evidence fo stroke identified. Plan- - Consider ENT consult and Speech consult -Acetylcholine receptor antibodies result pending Follow up outpatient, she can be discharged from neuro point of view - Thanking you so much Sg Rockwell MD
[2017-10-08] MEDS: CEFTRIAXONE 1 GM in DEXTROSE 5%-WATER - 50 ML IVPB SCH (10:03)
[2017-10-08] MEDS: PANTOPRAZOLE SODIUM 40 MG VIAL IVPB SCH (10:03)
[2017-10-08] MEDS: levETIRAcetam 500 MG/5 ML INJECTION VIAL IVPB SCH (10:03)
[2017-10-08] MEDS: TOLTERODINE TARTRATE LA 2 MG CAP.SR.24H PO SCH (10:04)
[2017-10-08] MEDS: DULoxetine HCL 30 MG CAPSULE.DR (FP) PO SCH (10:04)
[2017-10-08] MEDS: ASPIRIN COATED 81 MG TABLET.EC PO SCH (10:04)
[2017-10-08] MEDS: CARVEDILOL 6.25 MG TABLET (FP) PO SCH (10:04)
[2017-10-08] MEDS: CITALOPRAM HYDROBROMIDE 20 MG TABLET (FP) PO SCH (10:04)
[2017-10-08] MEDS: METHADONE HCL 5 MG TABLET PO SCH (10:18)
--- NOTE | 2017-10-08 11:10 | CONSULT ---
Admitting History and Physical - Primary Care Physician PCP: Danya Sweeney - Admission History of Present Illness: 71F [facility] resident extensive PMH HTN, HLD, CAD s/p stent x 2, [place], Hep C, seizure disorder, colon ca. s/p ressection, SBO x 3, BL hip replacements, CVA long time ago? who presents to the ER due to acute dysphagia and was admitted to obs -tele to R/O TIA/stroke Dysphagia R/O CVA /TIA more likely isolated dysphagia * pt presented with sudden dysphagia for solid and liquid since 7 pm yesterday( I could not swallow my saliva ) , had similar episode but did not last this long * Head CT w/o contrast negative Selected Entries 10/06/17 10/06/17 10/07/17 08:24 17:00 01:57 Breakfast Chief Complaint "I can"t swallow" Lunch Supper NPO Temperature 98.0 F 10/07/17 10/07/17 10/07/17 05:59 10:00 10:40 Breakfast 50% Chief Complaint Lunch Supper Temperature 98.6 F 98 F 10/07/17 10/07/17 10/07/17 13:40 13:41 17:00 Breakfast Chief Complaint Lunch 0 Supper Temperature 98.2 F 97.2 F L 10/07/17 10/07/17 10/08/17 20:34 22:00 01:02 Breakfast Chief Complaint Lunch Supper 75% Temperature 98.2 F 97.8 F 10/08/17 10/08/17 05:52 09:00 Breakfast Chief Complaint Lunch Supper Temperature 97.9 F 98.1 F Laboratory Tests 10/06/17 10/07/17 10/08/17 00:23 05:30 06:00 WBC 12.5 H 4.2 5.2 Dysphagia spontaneously recovered and pt is not tolerating solids and liquids. Pt is edentulous. Per patient: PPI was d/c'd at [place] a week aGO WITH SIGnificant increase in heartburn symptoms during week leading up to incident. She denied speech/phonation/nasality changes, drooling, foamy secretions, CP, just onset on inability to swallow an hour or two after dinner. When she drank water, "it came back up." Esophageal dysphagia/partial impaction which cleared? History Source: Patient Limitations to Obtaining History: No Limitations - Past Medical History ...: No - Smoking History Smoking history: Current every day smoker Have you smoked in the past 12 months: Yes Aproximately how many cigarettes per day: 1 - Alcohol/Substance Use Hx Alcohol Use: No History - Admission Reason For Visit: URINARY TRACT INFECTION, DYSPHAGIA - Diagnostics X-ray: Report Reviewed CT Scan: Report Reviewed MRI: Pending - General Mental Status: Alert and Oriented, Awake and Alert, Able to Follow Commands Attention: Intact Ability to Follow Directions: Excellent Head/Neck Control: WFL - Hearing Hearing: Normal Speech Evaluation - Communication Primary Language: [place] Communication: Yes: Within Normal Limits - Speech Production Able to Make Needs Known: Yes: WNL Intelligibility: Yes: WNL - Speech Characteristics Voice Loudness: Normal Voice Pitch: Yes: Normal Voice Phonatory-based Quality: Yes: Normal Speech Pattern: Normal Speech Clarity: < 100% Nasal Resonance: Normal Rate of Speech: Intact - Language/Auditory Comprehension Follows: Yes: 2 Stage Simple Commands - Language/Verbal Expression Able to Respond to Simple Queries: Yes: WNL Able to Communicate Wants and Needs: Yes: WNL Functional Communication Status: Yes: WNL - Memory/Perception winding machine operator Memory: Yes: WNL Short Term Memory: Yes: WNL - Swallow Evaluation/Bedside Assessment Current Nutritional Intake: Regular, Thin Liquids Facial Symmetry at Rest: Symmetrical Facial Symmetry on Retraction: Symmetrical Facial Movement: Controlled Against Resistance Opening: Normal Against Resistance Closing: Normal Pucker Lips: Normal Lingual Movement: Normal, Symmetric Lingual Speed of Movement: Normal Lingual Movement Strgth Against Opposition: Normal Lingual Movement Characteristics: Normal Velopharyngeal Movement: Normal Laryngeal Elevation: WFL Laryngeal Movement: Able to Palpate Rate of Intake: WFL Bolus Size: WFL Labial Seal: WFL Chewing: WFL Oral Prep Time: WFL A-P Transit: WFL Pocketing: None Timing of Swallow: WFL Coughing/Throat Clear: No Change in Voice: No Recommendations - Speech Evaluation, Impression/Plan Impression: Suspect Dysphagia incident related to NH holding PPI, increase in heartburn, possible Esophageal Dysphagia/ impaction/ which cleared. Pt back on PPI. Pt scheduled for d/c. Does not want further w/u eg MRI/esophagram - Dysphagia Impressions/Plan Dysphagia Impressions: Ongoing Evaluation *Silent aspiration: cannot be R/O at bedside Recommendations: GI Consult (as out pt if symptoms persist- r/o esophageal dysphagia) - Recommendations Diet Consistency: Regular Medication Administration: Whole with water Liquids: Thin Liquids
--- NOTE | 2017-10-08 12:25 | PN ---
Teaching Attending Note Name of Resident: Danis Leon ATTENDING PHYSICIAN STATEMENT I saw and evaluated the patient. I reviewed the resident's note and discussed the case with the resident. I agree with the resident's findings and plan as documented. SUBJECTIVE:asymptomatic. tolerating regular diet. denies CP, SOB, fever, chills , N/V/C/D OBJECTIVE: Last Vital Signs Temp Pulse Resp BP Pulse Ox 98.1 F 70 22 123/78 97 10/08/17 09:00 10/08/17 09:00 10/08/17 09:00 10/08/17 09:00 10/07/17 20:43 General NAD HEENT no drooling, ASSESSMENT AND PLAN: 11yo F with PMH HTN, dyslipidemia, CAD, HCV, colon cancer presented to the ER with sudden onset of dysphagia 1. Dysphagia- possible esophageal spasm. now symptoms have resolved. tolerating regular diet. swallow eval. would recommend to f/u with GI as outpatient for esophageal spasm. - inaccurate reading on head CT. repeat is now negative for acute infarct which was reported on initial head CT. was started on asa/statin but will continue as pt has old CVA and not on 2ndary prevention. no further stroke workup needed. 3. UTI- on ceftriaxone day 3. will switch to keflex x7days. f/u Cx 4. IGGY- dehydration vs medication effect. avoid nephrotoxic agents. trend 5. HTN- controlled. cont home regimen 6. HCV- unclear if treated 7. chronic pain- on methadone. confirmed dose 8. colon ca- outpatient follow up 9. DVT ppx- hep sq 10. medically optimized for discharge to [facility]
--- NOTE | 2017-10-08 19:31 | DS ---
Physical Exam: SUBJECTIVE: Patient seen and examined at bedside. No complaints. Pt tolerating diet. OBJECTIVE: Vital Signs Period Temp Pulse Resp BP Sys/Gomez Pulse Ox Last 24 Hr 97.8 F-98.2 F 69-77 18-22 123-136/74-85 96-97 PHYSICAL EXAM Gen: nad, lying in bed HEENT: NCAT, PERRL, EOMI Neck: supple, no jvd, no bruits Cardio: rrr, normal s1s2, 3/6 sys murmur LUSB Pulm: cta b/l abd: soft, nontender, nondistended, + bs ext: 2+ pulses, no edema Neuro: CN 2-12 intact, strength uniformly 4/5 throughout, sensation intact. No focal deficits LABS Laboratory Results - last 24 hr 10/08/17 10/08/17 06:00 06:00 WBC 5.2 RBC 4.13 Hgb 12.3 Hct 36.6 MCV 88.6 MCH 29.8 MCHC 33.7 RDW 14.8 Plt Count 124 L MPV 8.7 Absolute Neuts (auto) 2.4 Neutrophils % 46.3 Lymphocytes % 39.0 Monocytes % 8.9 Eosinophils % 4.9 H Basophils % 0.9 Nucleated RBC % 0 Sodium 142 Potassium 3.9 Chloride 108 H Carbon Dioxide 27 Anion Gap 7 L BUN 10 Creatinine 0.7 Creat Clearance w eGFR > 60 Random Glucose 89 Calcium 8.5 Phosphorus 3.3 Magnesium 1.5 L Total Bilirubin 0.3 AST 21 ALT 21 Alkaline Phosphatase 70 Total Protein 5.9 L Albumin 3.0 L HOSPITAL COURSE: Date of Admission:10/06/17 Date of Discharge: 10/08/17 Pt is a 71 y/o F with PMH HTN, HLD, CAD s/p stent x 2, [place], Hep C, seizure disorder, colon ca. s/p ressection, SBO x 3, chronic hip pain, BL hip replacement who presented to ED with complaint of difficulty swallowing. Pt had a head CT, which showed attenuation noted on [address] was negative for acute stroke but revealed old stroke. Pt refused MRI. Pt's neuro exam was normal throughout her stay. Pt's dysphagia resolved. No drooling or inability to handle secretions observed. Pt's lipids were found to be elevated. She was put on ASA and crestor. Pt was found to have a UTI based on pos UA. UCx was neg. Pt was given Rocephin inpt. She went home on Keflex. She was asymptomatic. Pt's HTN was treated with her home Coreg. Pt's Seizure disorder was treated with home keppra. Pt's anxiety/depression was treated with home celexa, cymbalta, desyrel. Pt's hx of substance use disorder was treated with methodone. Pt stable for d/c. Minutes to complete discharge: 45 Discharge Summary Reason For Visit: URINARY TRACT INFECTION, DYSPHAGIA Condition: Stable - Instructions Diet, Activity, Other Instructions: You were brought to the hospital because of an inability to swallow. You need to follow up with a GI doctor about your swallowing. If you have a GI doctor already, you can call them for an appointment. If not, you can call Dr. Lucero (GI). As part of your workup, your blood cholesterol was drawn and found to be high. Because of that along with your medical history, you were started on 2 new medications: -Aspirin 81 mg daily -Crestor 40 mg at night You were found to have a urinary tract infection. You are being sent home with the following anitibiotics: -Keflex 500mg twice daily for 4 days. If you find you are unable to eat, or have nausea/vomiting return to the emergency department. If your symptoms get worse or if you develop new symptoms, please return to the emergency department. Referrals: Mic Lucero MD [Staff Physician] - 1 Week Disposition: RETIREMENT FACILITY - Home Medications Comprehensive Discharge Medication List: Ambulatory Orders Acetaminophen [Tylenol] 650 mg PO Q6H PRN 12/25/16 Carvedilol [Coreg] 6.25 mg PO BID 12/25/16 Citalopram Hydrobromide [Celexa -] 40 mg PO DAILY 12/25/16 Magnesium Hydrox 2400MG/30Ml [Milk of Magnesia -] 30 ml PO Q48H PRN 12/25/16 Protonix - 40 mg PO DAILY 12/25/16 levETIRAcetam [Keppra -] 500 mg PO BID 12/25/16 traZODone HCL [Desyrel -] 100 mg PO HS 12/25/16 Diphenhydramine HCl [Benadryl Capsule -] 25 mg PO Q6H PRN 06/28/17 Duloxetine HCl [Cymbalta] 60 mg PO DAILY 06/28/17 Melatonin 3 mg PO HS 06/28/17 Tolterodine Tartrate [Detrol LA] 2 mg PO DAILY 06/28/17 Naproxen 250 mg PO Q12H PRN #8 tablet 06/29/17 Methadone [Dolophine -] 5 mg PO BID 10/05/17 Aspirin Coated [Ecotrin -] 81 mg PO DAILY tablet.ec 10/08/17 Cephalexin Monohydrate [Keflex -] 500 mg PO BID #8 capsule 10/08/17 Rosuvastatin [Crestor -] 40 mg PO HS tablet 10/08/17 This patient is new to me today: No Emergency Visit: No Critical Care patient: No - Discharge Referral Referred to [facility] No
== END 2017-10-08 14:43 | DRG 690 ==
LOC: JER 21:45 → JERBED 10-06 05:06 → J4W 10-06 08:16 → OBSVTOIN 10-06 11:37
PROVIDERS: ADMIT Internal Medicine; ATTEND Internal Medicine
DX: N39.0 Urinary tract infection, site not specified (principal); N17.9 Acute kidney failure, unspecified; K22.4 Dyskinesia of esophagus; R13.10 Dysphagia, unspecified; I25.10 Atherosclerotic heart disease of native coronary artery without angina pectoris; I10 Essential (primary) hypertension; E78.5 Hyperlipidemia, unspecified; G40.909 Epilepsy, unspecified, not intractable, without status epilepticus; M25.559 Pain in unspecified hip; I25.2 Old myocardial infarction; F41.8 Other specified anxiety disorders; B18.2 Chronic viral hepatitis C; F40.240 Claustrophobia; G89.29 Other chronic pain; E86.0 Dehydration; K21.9 Gastro-esophageal reflux disease without esophagitis; Z85.038 Personal history of other malignant neoplasm of large intestine; Z96.643 Presence of artificial hip joint, bilateral; Z86.73 Personal history of transient ischemic attack (TIA), and cerebral infarction without residual deficits
CPT/HCPCS: 36415; 70450-TC; 71045-TC-FY; 80053; 81003; 81015; 82465; 82550; 83519; 83718; 83721; 83735; 84100; 84478; 84484; 85025; 85610; 85730; 86850; 86900; 86901; 87086; 93005; 93010; 93880-TC; 97116-GP; 97161-GP; 99282-25; G0378; J1644; J7030

== ENCOUNTER 2022-02-06 11:48 | Inpatient (IN) | payer OTHER ==
[2022-02-06] MEDS ORDERED: LACTATED RINGERS SOLUTION 1000 ML INFUS.BAG IV ONE ×4 (14:15→17:38)
[2022-02-06 15:09] LABS: HEMATOCRIT 36.7 % (32.4-45.2); HEMOGLOBIN 11.5 GM/dL (10.7-15.3); MCHC 31.3 g/dl (32.0-36.0); MEAN CELL VOLUME 89.4 fl (80-96); MEAN PLT VOLUME 9.4 fl (7.5-11.1); PLATELET COUNT 194 10^3/uL (134-434); RDW 15.6 % (11.6-15.6); WHITE BLOOD COUNT 21.8 K/mm3 (4.0-10.0)
[2022-02-06 16:13] LABS: EPI CELLS >36 /uL (0-25.1); HYALINE CASTS 1 /uL (0-3.1); PH,URINE 7.5 (5.0-8.0); URINE APPEARANCE CLOUDY; URINE BACTERIA 935 /uL (0-1359); URINE BILIRUBIN NEGATIVE (NEGATIVE); URINE COLOR YELLOW; URINE GLUCOSE (UA) NEGATIVE (NEGATIVE); URINE KETONE TRACE (NEGATIVE); URINE LEUK ESTERASE 2+ (NEGATIVE); URINE NITRITE NEGATIVE (NEGATIVE); URINE PROTEIN 2+ (NEGATIVE); URINE RBC 17 /uL (0-23.9); URINE UROBILINOGEN 0.2 mg/dL (0.2-1.0); URINE WBC 79 /uL (0-25.8)
[2022-02-06 16:34] LABS: CHLORIDE 98 mmol/L (98-107); SODIUM 137 mmol/L (136-145)
[2022-02-06 16:35] LABS: CALCIUM 7.8 mg/dL (8.5-10.1)
[2022-02-06 16:37] LABS: ALBUMIN 3.1 g/dl (3.4-5.0); BLOOD UREA NITROGEN 100.5 mg/dL (7-18); CO2 11 mmol/L (21-32)
[2022-02-06 16:39] LABS: SGOT/AST 60 U/L (15-37); SGPT/ALT 39 U/L (13-61)
[2022-02-06 16:41] LABS: BILIRUBIN,TOTAL 0.4 mg/dL (0.2-1); TOT PROT 6.8 g/dl (6.4-8.2)
[2022-02-06 16:43] LABS: ALK PHOS 56 U/L (45-117)
[2022-02-06 16:48] LABS: LACTIC ACID 6.5 mmol/L (0.4-2.0)
[2022-02-06] MEDS ORDERED: PIPERACILLIN/TAZOB 3.375 GM 3.375 GM in DEXTROSE 5%-WATER - 50 ML IVPB ONE (16:53)
[2022-02-06] MEDS ORDERED: PIPERACILLIN/TAZOB 3.375 GM 3.375 GM/50 ML BAG IVPB ONE (17:03)
[2022-02-06 17:04] LABS: ANION GAP 29 MMOL/L (8-16); CREATININE 9.4 mg/dL (0.55-1.3); GLUCOSE,RANDOM 43 mg/dL (74-106)
[2022-02-06] MEDS ORDERED: DEXTROSE 50%-WATER 25 GM/50 ML DISP.SYRIN IVPUSH ONE (17:08)
[2022-02-06] MEDS ORDERED: CALCIUM GLUCONATE 10% - 1,000 MG/10 ML VIAL IVPUSH ONE (17:13)
[2022-02-06] MEDS ORDERED: DEXTROSE 50%-WATER - 25 GM/50 ML VIAL IVPUSH ONE (17:13)
[2022-02-06] MEDS ORDERED: INSULIN REGULAR HUMAN 100 UNITS/ML *VIAL IVPUSH ONE (17:14)
[2022-02-06] MEDS ORDERED: CALCIUM CHLORIDE 1 GM/10 ML *DISP.SYRIN ONE (17:16)
[2022-02-06] MEDS ORDERED: DEXTROSE 50%-WATER 25 GM/50 ML DISP.SYRIN ONE (17:16)
[2022-02-06] MEDS ORDERED: SODIUM BICARBONATE 8.4% 50 MEQ/50 ML DISP.SYRIN IVPUSH ONE ×3 (17:34→17:38)
[2022-02-06] MEDS ORDERED: SODIUM ZIRCONIUM CYCLOSILICATE (LOKELMA) 5 GM PACKET PO ONE ×2 (17:36→23:00)
[2022-02-06] MEDS ORDERED: SODIUM BICARBONATE 8.4% - 100 ML ONE (17:52)
[2022-02-06] MEDS ORDERED: SODIUM ZIRCONIUM CYCLOSILICATE (LOKELMA) 5 GM PACKET ONE (17:53)
[2022-02-06] MEDS ORDERED: VANCOMYCIN 1 GM in D5W (PRE-DOCKED) 1,000 MG/250 ML IVPB ONE (18:27)
[2022-02-06] MEDS ORDERED: VANCOMYCIN/WATER FOR INJ (PEG) 1,000 MG/200 ML BAG IVPB ONE (18:33)
[2022-02-06] MEDS ORDERED: ACETAMINOPHEN 1000 MG/100 ML BAG IVPB ONE (19:18)
[2022-02-06 19:24] LABS: VENOUS BASE EXCESS -19.1 mmol/L (-2-2); VENOUS O2 SATURATION 75.3 % (70-80); VENOUS PCO2 35.4 mmHg (38-52)
[2022-02-06] MEDS ORDERED: ACETAMINOPHEN INJECTION 100 ML IVPB ONE (19:25)
[2022-02-06] MEDS ORDERED: SODIUM BICARBONATE 8.4% 50 MEQ/50 ML VIAL ONE (19:25)
[2022-02-06 19:26] LABS: VENOUS PH 7.068 (7.310-7.410)
[2022-02-06 19:48] LABS: CHLORIDE 96 mmol/L (98-107); SODIUM 133 mmol/L (136-145)
[2022-02-06 19:49] LABS: CALCIUM 8.7 mg/dL (8.5-10.1)
[2022-02-06 19:50] LABS: BLOOD UREA NITROGEN 97.1 mg/dL (7-18); CO2 11 mmol/L (21-32); GLUCOSE,RANDOM 330 mg/dL (74-106); LIPASE 409 U/L (73-393)
[2022-02-06 20:02] LABS: ANION GAP 26 MMOL/L (8-16); CREATININE 9.1 mg/dL (0.55-1.3); LACTIC ACID 6.1 mmol/L (0.4-2.0)
[2022-02-06 20:41] LABS: CHLORIDE 96 mmol/L (98-107); SODIUM 136 mmol/L (136-145)
[2022-02-06 20:43] LABS: CALCIUM 8.2 mg/dL (8.5-10.1); CO2 15 mmol/L (21-32); GLUCOSE,RANDOM 186 mg/dL (74-106)
[2022-02-06 20:56] LABS: ANION GAP 25 MMOL/L (8-16); CREATININE 8.7 mg/dL (0.55-1.3)
[2022-02-06] MEDS ORDERED: CALCIUM GLUCONATE 10% - 1,000 MG/10 ML VIAL IVPB ONE (21:56)
[2022-02-06] MEDS ORDERED: PNEUMOC 20-VAL CONJ-DIP CRM/PF 0.5 ML SYRINGE IM ONE (23:00)
[2022-02-06 23:37] LABS: LACTIC ACID 6.8 mmol/L (0.4-2.0)
[2022-02-07] MEDS ORDERED: PIPERACILLIN/TAZOB 3.375 GM 3.375 GM in DEXTROSE 5%-WATER - 50 ML IVPB ONE
[2022-02-07] MEDS: SODIUM BICARBONATE 8.4% - 150 MEQ in DEXTROSE 5%-WATER - 950 ML IVPB SCH (01:13)
[2022-02-07 07:01] LABS: ARTERIAL BLD GAS O2 SATURATION 96.1 % (95-98); ARTERIAL BLOOD GAS BASE EXCESS -2.2 mmol/L (-2-2); ARTERIAL BLOOD GAS PO2 88.7 mmHg (80-100); ARTERIAL BLOOD GAS pH 7.328 (7.350-7.450)
[2022-02-07 07:03] LABS: ALLENS TEST POSITIVE
[2022-02-07 08:10] LABS: HEMATOCRIT 33.9 % (32.4-45.2); MCH 28.7 pg (25.7-33.7); MCHC 32.5 g/dl (32.0-36.0); MEAN CELL VOLUME 88.1 fl (80-96); MEAN PLT VOLUME 9.2 fl (7.5-11.1); PLATELET COUNT 164 10^3/uL (134-434); RBC 3.85 M/mm3 (3.60-5.2); RDW 15.4 % (11.6-15.6); WHITE BLOOD COUNT 17.1 K/mm3 (4.0-10.0)
[2022-02-07 08:25] LABS: CHLORIDE 95 mmol/L (98-107); SODIUM 138 mmol/L (136-145)
[2022-02-07 08:39] LABS: LIPASE 772 U/L (73-393)
[2022-02-07 08:41] LABS: CALCIUM 7.8 mg/dL (8.5-10.1); SGOT/AST 72 U/L (15-37)
[2022-02-07 08:42] LABS: ALBUMIN 2.8 g/dl (3.4-5.0); TOT PROT 6.1 g/dl (6.4-8.2)
[2022-02-07 08:43] LABS: ANION GAP 22 MMOL/L (8-16); CO2 22 mmol/L (21-32); MAGNESIUM 1.4 mg/dL (1.8-2.4)
[2022-02-07 08:44] LABS: BILIRUBIN,DIRECT 0.2 mg/dL (0.0-0.2)
[2022-02-07 08:45] LABS: AMYLASE 184 U/L (25-115); GLUCOSE,RANDOM 113 mg/dL (74-106); SGPT/ALT 45 U/L (13-61)
[2022-02-07 08:46] LABS: ALK PHOS 47 U/L (45-117); BILIRUBIN,TOTAL 0.4 mg/dL (0.2-1)
[2022-02-07 09:00] LABS: CREATININE 8.9 mg/dL (0.55-1.3); PHOSPHOROUS 8.8 mg/dL (2.5-4.9)
[2022-02-07] MEDS ORDERED: PIPERACILLIN/TAZOB 2.25 GM 2.25 GM in DEXTROSE 5%-WATER - 50 ML IVPB SCH ×2 (09:00→10:00)
[2022-02-07] MEDS: MUPIROCIN 2% TOPICAL OINTMENT FOR DECOLONIZATION NS SCH ×2 (10:23→21:33)
[2022-02-07] MEDS ORDERED: DEXTROSE 50%-WATER 25 GM/50 ML DISP.SYRIN ONE (10:57)
[2022-02-07] MEDS ORDERED: DEXTROSE 50%-WATER 25 GM/50 ML DISP.SYRIN IVPUSH ONE (10:59)
[2022-02-07] MEDS ORDERED: INSULIN SLIDING SCALE (NOVOLOG) 1 VIAL SQ SCH (11:00)
[2022-02-07] MEDS: INSULIN SLIDING SCALE (NOVOLOG) 1 VIAL SQ SCH ×2 (11:02→16:32)
[2022-02-07] MEDS ORDERED: DEXTROSE 50%-WATER - 25 GM/50 ML VIAL IVPUSH PRN (11:08)
[2022-02-07 11:38] LABS: LACTIC ACID 3.9 mmol/L (0.4-2.0)
[2022-02-07] MEDS ORDERED: VANCOMYCIN 1,000 MG in DEXTROSE 5%-WATER - 250 ML IVPB ONE (13:27)
[2022-02-07] MEDS ORDERED: HEPARIN NA (PORCINE) 5,000 UNITS/ML 1ML VIAL SQ SCH (14:00)
[2022-02-07] MEDS ORDERED: VANCOMYCIN/WATER FOR INJ (PEG) 1,000 MG/200 ML BAG IVPB ONE (14:11)
[2022-02-07] MEDS ORDERED: DESVENLAFAXINE 50 MG PO SCH (14:15)
[2022-02-07] MEDS ORDERED: DEXTROSE 5%-0.45% SALINE 1,000 ML IV SCH (15:00)
[2022-02-07] MEDS: CLOPIDOGREL BISULFATE 75 MG TABLET (FP) PO SCH (15:54)
[2022-02-07] MEDS: PANTOPRAZOLE 20 MG TABLET PO SCH (15:54)
[2022-02-07 17:56] LABS: INR 1.44 (0.83-1.09); PROTHROMBIN TIME (PATIENT) 16.6 SEC (9.7-13.0)
[2022-02-07] MEDS: PIPERACILLIN/TAZOB 2.25 GM 2.25 GM in DEXTROSE 5%-WATER - 50 ML IVPB SCH (18:28)
[2022-02-07 20:01] LABS: URINE BARBITURATES NEGATIVE (NEGATIVE)
[2022-02-07 20:02] LABS: COCAINE, UR NEGATIVE (NEGATIVE); METHADONE, UR NEGATIVE (NEGATIVE)
[2022-02-07 20:03] LABS: OPIATES, URI NEGATIVE (NEGATIVE); PHENCYCLIDINE,URINE NEGATIVE (NEGATIVE); URINE AMPHETAMINES NEGATIVE (NEGATIVE); URINE BENZODIAZEPINES NEGATIVE (NEGATIVE)
[2022-02-07 21:11] LABS: CHLORIDE 92 mmol/L (98-107); SODIUM 136 mmol/L (136-145)
[2022-02-07 21:14] LABS: ALBUMIN 2.4 g/dl (3.4-5.0); ANION GAP 20 MMOL/L (8-16); BLOOD UREA NITROGEN 98.4 mg/dL (7-18); CO2 25 mmol/L (21-32); GLUCOSE,RANDOM 159 mg/dL (74-106)
[2022-02-07 21:16] LABS: SGPT/ALT 40 U/L (13-61)
[2022-02-07 21:18] LABS: BILIRUBIN,TOTAL 0.4 mg/dL (0.2-1); SGOT/AST 58 U/L (15-37); TOT PROT 5.6 g/dl (6.4-8.2)
[2022-02-07 21:19] LABS: ALK PHOS 43 U/L (45-117)
[2022-02-07 21:25] LABS: CALCIUM 6.9 mg/dL (8.5-10.1); CREATININE 8.8 mg/dL (0.55-1.3)
[2022-02-07] MEDS: levETIRAcetam 500 MG TABLET (FP) PO SCH (21:32)
[2022-02-07] MEDS: MELATONIN 5 MG TABLETS PO SCH (21:32)
[2022-02-08] MEDS: CHLORHEXIDINE GLUCONATE 4% CLEANSER FOR DECOLONIZATION TP SCH ×2 (00:50→21:01)
[2022-02-08] MEDS: PIPERACILLIN/TAZOB 2.25 GM 2.25 GM in DEXTROSE 5%-WATER - 50 ML IVPB SCH ×3 (01:07→17:52)
[2022-02-08] MEDS: INSULIN SLIDING SCALE (NOVOLOG) 1 VIAL SQ SCH ×5 (01:33→21:10)
[2022-02-08 09:14] LABS: BASO % 0.5 % (0-2.0); EOS % 9.1 % (0-4.5); HEMATOCRIT 34.7 % (32.4-45.2); HEMOGLOBIN 11.2 GM/dL (10.7-15.3); MCH 28.2 pg (25.7-33.7); MCHC 32.2 g/dl (32.0-36.0); MEAN CELL VOLUME 87.7 fl (80-96); MEAN PLT VOLUME 8.4 fl (7.5-11.1); MONO % 12.9 % (3.8-10.2); NEUT % 63.5 % (42.8-82.8); PLATELET COUNT 131 10^3/uL (134-434); RBC 3.96 M/mm3 (3.60-5.2); RDW 15.3 % (11.6-15.6)
[2022-02-08 09:20] LABS: INR 1.6 (0.83-1.09); PROTHROMBIN TIME (PATIENT) 18.5 SEC (9.7-13.0)
[2022-02-08 09:23] LABS: ACTIVATED PTT 28.8 SECONDS (25.2-36.5)
[2022-02-08] MEDS: PANTOPRAZOLE 20 MG TABLET PO SCH (09:32)
[2022-02-08] MEDS: CLOPIDOGREL BISULFATE 75 MG TABLET (FP) PO SCH (09:32)
[2022-02-08] MEDS: levETIRAcetam 500 MG TABLET (FP) PO SCH ×2 (09:33→21:01)
[2022-02-08] MEDS: MUPIROCIN 2% TOPICAL OINTMENT FOR DECOLONIZATION NS SCH ×2 (09:34→21:02)
[2022-02-08] MEDS: VENLAFAXINE HCL 75 MG E.R. CAPSULES PO SCH (09:34)
[2022-02-08 09:55] LABS: MAGNESIUM 1.3 mg/dL (1.8-2.4); PHOSPHOROUS 8.4 mg/dL (2.5-4.9)
[2022-02-08 10:00] LABS: ALBUMIN 2.5 g/dl (3.4-5.0)
[2022-02-08 10:03] LABS: BILIRUBIN,DIRECT 0.2 mg/dL (0.0-0.2)
[2022-02-08 10:05] LABS: BILIRUBIN,TOTAL 0.5 mg/dL (0.2-1); TOT PROT 5.7 g/dl (6.4-8.2)
[2022-02-08 11:03] LABS: LACTIC ACID 3.9 mmol/L (0.4-2.0)
[2022-02-08 11:22] LABS: CHLORIDE 91 mmol/L (98-107); SODIUM 138 mmol/L (136-145)
[2022-02-08 11:23] LABS: ANION GAP 22 MMOL/L (8-16); BLOOD UREA NITROGEN 96.5 mg/dL (7-18); CO2 25 mmol/L (21-32); GLUCOSE,RANDOM 157 mg/dL (74-106)
[2022-02-08 11:29] LABS: CALCIUM 6.6 mg/dL (8.5-10.1); CREATININE 8.6 mg/dL (0.55-1.3)
[2022-02-08] MEDS: HEPARIN NA (PORCINE) 5,000 UNITS/ML 1ML VIAL SQ SCH ×2 (15:54→21:01)
[2022-02-08] MEDS: DEXTROSE 5%-0.45% SALINE 1,000 ML IV SCH (17:52)
[2022-02-08] MEDS: MELATONIN 5 MG TABLETS PO SCH (21:01)
[2022-02-09] MEDS: PIPERACILLIN/TAZOB 2.25 GM 2.25 GM in DEXTROSE 5%-WATER - 50 ML IVPB SCH ×3 (01:27→17:30)
[2022-02-09] MEDS: HEPARIN NA (PORCINE) 5,000 UNITS/ML 1ML VIAL SQ SCH ×3 (06:07→21:30)
[2022-02-09] MEDS: INSULIN SLIDING SCALE (NOVOLOG) 1 VIAL SQ SCH ×4 (07:10→21:39)
[2022-02-09] MEDS ORDERED: VANCOMYCIN/WATER FOR INJ (PEG) 1,000 MG/200 ML BAG IVPB ONE (08:30)
[2022-02-09] MEDS: levETIRAcetam 500 MG TABLET (FP) PO SCH ×2 (10:54→21:30)
[2022-02-09] MEDS: PANTOPRAZOLE 20 MG TABLET PO SCH (10:55)
[2022-02-09] MEDS: MUPIROCIN 2% TOPICAL OINTMENT FOR DECOLONIZATION NS SCH (10:55)
[2022-02-09] MEDS: CLOPIDOGREL BISULFATE 75 MG TABLET (FP) PO SCH (10:55)
[2022-02-09] MEDS: VENLAFAXINE HCL 75 MG E.R. CAPSULES PO SCH (10:55)
[2022-02-09] MEDS: DEXTROSE 5%-0.45% SALINE 1,000 ML IV SCH ×2 (12:07→13:36)
[2022-02-09] MEDS ORDERED: DEXTROSE 50%-WATER - 25 GM/50 ML VIAL IVPUSH PRN (15:43)
[2022-02-09] MEDS ORDERED: ACETAMINOPHEN 325 MG TABLET (FP) PO ONE (20:12)
[2022-02-09] MEDS: MELATONIN 5 MG TABLETS PO SCH (21:31)
[2022-02-09] MEDS ORDERED: CHLORHEXIDINE GLUCONATE 4% CLEANSER FOR DECOLONIZATION TP SCH (22:00)
[2022-02-09] MEDS ORDERED: MUPIROCIN 2% TOPICAL OINTMENT FOR DECOLONIZATION NS SCH (22:00)
[2022-02-09] MEDS ORDERED: DEXTROSE 50%-WATER 25 GM/50 ML DISP.SYRIN IVPUSH PRN (23:19)
[2022-02-10] MEDS: PIPERACILLIN/TAZOB 2.25 GM 2.25 GM in DEXTROSE 5%-WATER - 50 ML IVPB SCH ×3 (01:59→17:07)
[2022-02-10] MEDS: HEPARIN NA (PORCINE) 5,000 UNITS/ML 1ML VIAL SQ SCH ×3 (06:27→22:10)
[2022-02-10] MEDS: INSULIN SLIDING SCALE (NOVOLOG) 1 VIAL SQ SCH ×4 (06:31→22:35)
[2022-02-10 10:07] LABS: HEMATOCRIT 29.1 % (32.4-45.2); HEMOGLOBIN 9.4 GM/dL (10.7-15.3); MCH 28.3 pg (25.7-33.7); MCHC 32.4 g/dl (32.0-36.0); MEAN CELL VOLUME 87.1 fl (80-96); MEAN PLT VOLUME 8.6 fl (7.5-11.1); PLATELET COUNT 109 10^3/uL (134-434); RBC 3.34 M/mm3 (3.60-5.2); RDW 15.1 % (11.6-15.6); WHITE BLOOD COUNT 10.6 K/mm3 (4.0-10.0)
[2022-02-10 10:23] LABS: CHLORIDE 97 mmol/L (98-107); SODIUM 139 mmol/L (136-145)
[2022-02-10 10:25] LABS: ALBUMIN 2.2 g/dl (3.4-5.0); ANION GAP 18 MMOL/L (8-16); BLOOD UREA NITROGEN 86.1 mg/dL (7-18); CO2 24 mmol/L (21-32); GLUCOSE,RANDOM 124 mg/dL (74-106); MAGNESIUM 1.2 mg/dL (1.8-2.4)
[2022-02-10 10:28] LABS: PHOSPHOROUS 6.2 mg/dL (2.5-4.9); SGOT/AST 37 U/L (15-37); SGPT/ALT 33 U/L (13-61)
[2022-02-10 10:30] LABS: BILIRUBIN,TOTAL 0.5 mg/dL (0.2-1); TOT PROT 5.4 g/dl (6.4-8.2)
[2022-02-10 10:31] LABS: ALK PHOS 37 U/L (45-117)
[2022-02-10 10:40] LABS: CALCIUM 6.5 mg/dL (8.5-10.1); CREATININE 8.6 mg/dL (0.55-1.3)
[2022-02-10] MEDS: PANTOPRAZOLE 20 MG TABLET PO SCH (11:13)
[2022-02-10] MEDS: CLOPIDOGREL BISULFATE 75 MG TABLET (FP) PO SCH (11:13)
[2022-02-10] MEDS: VENLAFAXINE HCL 75 MG E.R. CAPSULES PO SCH (11:13)
[2022-02-10] MEDS: levETIRAcetam 500 MG TABLET (FP) PO SCH ×2 (11:14→22:10)
[2022-02-10 12:34] LABS: AMYLASE 92 U/L (25-115); LIPASE 767 U/L (73-393)
[2022-02-10 12:36] LABS: CHOLESTEROL 88 mg/dL (50-200)
[2022-02-10 12:37] LABS: TRIGLYCERIDES 128 mg/dL (0-150)
[2022-02-10 12:38] LABS: LDL CHOLESTEROL (ONLY SJRH) 42 mg/dL (5-100)
[2022-02-10 12:40] LABS: HDL CHOLESTEROL 30 mg/dL (40-60)
[2022-02-10] MEDS ORDERED: MAGNESIUM OXIDE 400 MG TABLET (FP) PO ONE (14:30)
[2022-02-10] MEDS: DEXTROSE 5%-0.45% SALINE 1,000 ML IV SCH ×2 (16:19→18:50)
[2022-02-10] MEDS: CALCIUM ACETATE 667 MG CAPSULE (FP) PO SCH (16:38)
[2022-02-10] MEDS: SODIUM BICARBONATE 8.4% - 150 MEQ in DEXTROSE 5%-WATER - 950 ML IVPB SCH (19:27)
[2022-02-10] MEDS: ACETAMINOPHEN 650 MG/20.3 ML ORAL SOLUTION (CUPS) PO PRN (20:30)
[2022-02-10] MEDS: MELATONIN 5 MG TABLETS PO SCH (22:10)
[2022-02-11] MEDS: PIPERACILLIN/TAZOB 2.25 GM 2.25 GM in DEXTROSE 5%-WATER - 50 ML IVPB SCH ×3 (02:18→18:19)
[2022-02-11] MEDS: HEPARIN NA (PORCINE) 5,000 UNITS/ML 1ML VIAL SQ SCH ×3 (07:04→21:48)
[2022-02-11] MEDS: INSULIN SLIDING SCALE (NOVOLOG) 1 VIAL SQ SCH ×4 (07:55→21:56)
[2022-02-11] MEDS: ACETAMINOPHEN 650 MG/20.3 ML ORAL SOLUTION (CUPS) PO PRN (08:53)
[2022-02-11] MEDS: CLOPIDOGREL BISULFATE 75 MG TABLET (FP) PO SCH (09:01)
[2022-02-11] MEDS: CALCIUM ACETATE 667 MG CAPSULE (FP) PO SCH ×3 (09:01→17:42)
[2022-02-11] MEDS: PANTOPRAZOLE 20 MG TABLET PO SCH (09:01)
[2022-02-11] MEDS: levETIRAcetam 500 MG TABLET (FP) PO SCH ×2 (09:01→21:48)
[2022-02-11] MEDS: VENLAFAXINE HCL 75 MG E.R. CAPSULES PO SCH (09:01)
[2022-02-11 09:18] LABS: HEMATOCRIT 27.8 % (32.4-45.2); HEMOGLOBIN 9.1 GM/dL (10.7-15.3); MCH 28.4 pg (25.7-33.7); MCHC 32.7 g/dl (32.0-36.0); MEAN PLT VOLUME 8.3 fl (7.5-11.1); PLATELET COUNT 118 10^3/uL (134-434); RDW 14.8 % (11.6-15.6); WHITE BLOOD COUNT 9.6 K/mm3 (4.0-10.0)
[2022-02-11 09:41] LABS: CHLORIDE 102 mmol/L (98-107); SODIUM 141 mmol/L (136-145)
[2022-02-11 09:57] LABS: ALBUMIN 2.1 g/dl (3.4-5.0); ANION GAP 15 MMOL/L (8-16); BLOOD UREA NITROGEN 78.2 mg/dL (7-18); CO2 24 mmol/L (21-32); MAGNESIUM 1.2 mg/dL (1.8-2.4)
[2022-02-11 09:58] LABS: GLUCOSE,RANDOM 114 mg/dL (74-106)
[2022-02-11 10:00] LABS: PHOSPHOROUS 6.1 mg/dL (2.5-4.9); SGOT/AST 47 U/L (15-37); SGPT/ALT 39 U/L (13-61)
[2022-02-11 10:01] LABS: BILIRUBIN,TOTAL 0.6 mg/dL (0.2-1)
[2022-02-11 10:03] LABS: TOT PROT 5.2 g/dl (6.4-8.2)
[2022-02-11 10:04] LABS: ALK PHOS 39 U/L (45-117)
[2022-02-11 10:08] LABS: CALCIUM 6.9 mg/dL (8.5-10.1); CREATININE 8.1 mg/dL (0.55-1.3)
[2022-02-11] MEDS ORDERED: VANCOMYCIN/WATER FOR INJ (PEG) 1,000 MG/200 ML BAG IVPB ONE (16:13)
[2022-02-11] MEDS: DEXTROSE 5%-0.45% SALINE 1,000 ML IV SCH ×2 (16:42→18:23)
[2022-02-11] MEDS ORDERED: ACETAMINOPHEN 325 MG TABLET (FP) PO ONE (18:00)
[2022-02-11] MEDS ORDERED: oxyCODONE HCL 5 MG TABLET PO ONE (18:00)
[2022-02-11] MEDS: LIDOCAINE 5% TOPICAL PATCH TP SCH (19:01)
[2022-02-11] MEDS: MELATONIN 5 MG TABLETS PO SCH (21:48)
[2022-02-11] MEDS: LIDOCAINE PATCH REMOVAL MC SCH (21:56)
[2022-02-12] MEDS: PIPERACILLIN/TAZOB 2.25 GM 2.25 GM in DEXTROSE 5%-WATER - 50 ML IVPB SCH ×3 (01:55→17:14)
[2022-02-12] MEDS: DEXTROSE 5%-0.45% SALINE 1,000 ML IV SCH ×2 (01:56→18:28)
[2022-02-12] MEDS: ACETAMINOPHEN 650 MG/20.3 ML ORAL SOLUTION (CUPS) PO PRN (04:54)
[2022-02-12] MEDS: HEPARIN NA (PORCINE) 5,000 UNITS/ML 1ML VIAL SQ SCH ×3 (06:30→22:28)
[2022-02-12] MEDS: INSULIN SLIDING SCALE (NOVOLOG) 1 VIAL SQ SCH ×4 (06:35→23:08)
[2022-02-12] MEDS ORDERED: INSULIN (NOVOLOG) ASPART 100 UNITS/ML 10ML VIAL ONE (07:14)
[2022-02-12 10:15] LABS: HEMATOCRIT 26.3 % (32.4-45.2); HEMOGLOBIN 8.5 GM/dL (10.7-15.3); MCH 28.3 pg (25.7-33.7); MCHC 32.4 g/dl (32.0-36.0); MEAN CELL VOLUME 87.1 fl (80-96); MEAN PLT VOLUME 7.8 fl (7.5-11.1); PLATELET COUNT 118 10^3/uL (134-434); RBC 3.02 M/mm3 (3.60-5.2); RDW 15.2 % (11.6-15.6); WHITE BLOOD COUNT 8.1 K/mm3 (4.0-10.0)
[2022-02-12 10:37] LABS: CHLORIDE 105 mmol/L (98-107); SODIUM 142 mmol/L (136-145)
[2022-02-12] MEDS: CALCIUM ACETATE 667 MG CAPSULE (FP) PO SCH ×3 (10:43→17:13)
[2022-02-12] MEDS: PANTOPRAZOLE 20 MG TABLET PO SCH (10:43)
[2022-02-12] MEDS: LIDOCAINE 5% TOPICAL PATCH TP SCH (10:43)
[2022-02-12] MEDS: CLOPIDOGREL BISULFATE 75 MG TABLET (FP) PO SCH (10:43)
[2022-02-12] MEDS: levETIRAcetam 500 MG TABLET (FP) PO SCH ×2 (10:43→22:29)
[2022-02-12] MEDS: VENLAFAXINE HCL 75 MG E.R. CAPSULES PO SCH (10:43)
[2022-02-12 10:48] LABS: ALBUMIN 1.9 g/dl (3.4-5.0); ANION GAP 14 MMOL/L (8-16); CALCIUM 7.6 mg/dL (8.5-10.1); CO2 23 mmol/L (21-32); GLUCOSE,RANDOM 142 mg/dL (74-106); MAGNESIUM 1.3 mg/dL (1.8-2.4)
[2022-02-12 10:49] LABS: BLOOD UREA NITROGEN 72.9 mg/dL (7-18)
[2022-02-12 10:51] LABS: SGOT/AST 41 U/L (15-37); SGPT/ALT 36 U/L (13-61)
[2022-02-12 10:52] LABS: PHOSPHOROUS 5.7 mg/dL (2.5-4.9)
[2022-02-12 10:53] LABS: BILIRUBIN,TOTAL 0.5 mg/dL (0.2-1); TOT PROT 5.1 g/dl (6.4-8.2)
[2022-02-12 10:54] LABS: ALK PHOS 39 U/L (45-117)
[2022-02-12 10:55] LABS: CREATININE 7.6 mg/dL (0.55-1.3)
[2022-02-12] MEDS ORDERED: MAGNESIUM SULF 50% (8.12 MEQ/2 ML-1 GM VIAL) IVPB ONE (14:00)
[2022-02-12] MEDS: oxyCODONE HCL 5 MG TABLET PO PRN ×2 (14:59→22:29)
[2022-02-12] MEDS: MELATONIN 5 MG TABLETS PO SCH (22:29)
[2022-02-12] MEDS: LIDOCAINE PATCH REMOVAL MC SCH (22:29)
[2022-02-13] MEDS: PIPERACILLIN/TAZOB 2.25 GM 2.25 GM in DEXTROSE 5%-WATER - 50 ML IVPB SCH ×3 (02:50→17:37)
[2022-02-13] MEDS: HEPARIN NA (PORCINE) 5,000 UNITS/ML 1ML VIAL SQ SCH ×3 (06:37→21:59)
[2022-02-13] MEDS: INSULIN SLIDING SCALE (NOVOLOG) 1 VIAL SQ SCH ×4 (07:11→23:19)
[2022-02-13] MEDS: CALCIUM ACETATE 667 MG CAPSULE (FP) PO SCH ×3 (08:17→17:37)
[2022-02-13] MEDS: oxyCODONE HCL 5 MG TABLET PO PRN ×2 (08:56→17:45)
[2022-02-13] MEDS: CLOPIDOGREL BISULFATE 75 MG TABLET (FP) PO SCH (09:02)
[2022-02-13] MEDS: PANTOPRAZOLE 20 MG TABLET PO SCH (09:02)
[2022-02-13] MEDS: LIDOCAINE 5% TOPICAL PATCH TP SCH (09:02)
[2022-02-13] MEDS: VENLAFAXINE HCL 75 MG E.R. CAPSULES PO SCH (09:02)
[2022-02-13] MEDS: levETIRAcetam 500 MG TABLET (FP) PO SCH ×2 (09:02→21:59)
[2022-02-13 11:52] LABS: MAGNESIUM 1.7 mg/dL (1.8-2.4); PHOSPHOROUS 4.8 mg/dL (2.5-4.9)
[2022-02-13] MEDS: MELATONIN 5 MG TABLETS PO SCH (21:59)
[2022-02-13] MEDS: LIDOCAINE PATCH REMOVAL MC SCH (22:00)
[2022-02-14] MEDS: PIPERACILLIN/TAZOB 2.25 GM 2.25 GM in DEXTROSE 5%-WATER - 50 ML IVPB SCH ×3 (03:30→17:02)
[2022-02-14] MEDS: oxyCODONE HCL 5 MG TABLET PO PRN ×2 (06:16→14:39)
[2022-02-14] MEDS: HEPARIN NA (PORCINE) 5,000 UNITS/ML 1ML VIAL SQ SCH ×3 (06:16→21:39)
[2022-02-14] MEDS: INSULIN SLIDING SCALE (NOVOLOG) 1 VIAL SQ SCH ×4 (07:02→21:50)
[2022-02-14] MEDS: CALCIUM ACETATE 667 MG CAPSULE (FP) PO SCH ×3 (09:56→17:02)
[2022-02-14] MEDS: PANTOPRAZOLE 20 MG TABLET PO SCH (09:56)
[2022-02-14] MEDS: VENLAFAXINE HCL 75 MG E.R. CAPSULES PO SCH (09:56)
[2022-02-14] MEDS: levETIRAcetam 500 MG TABLET (FP) PO SCH ×2 (09:56→21:39)
[2022-02-14] MEDS: CLOPIDOGREL BISULFATE 75 MG TABLET (FP) PO SCH (09:57)
[2022-02-14] MEDS: DEXTROSE 5%-0.45% SALINE 1,000 ML IV SCH ×2 (09:57→17:31)
[2022-02-14] MEDS: LIDOCAINE 5% TOPICAL PATCH TP SCH (09:58)
[2022-02-14 09:59] LABS: HEMATOCRIT 27.5 % (32.4-45.2); HEMOGLOBIN 9.2 GM/dL (10.7-15.3); MCH 29.2 pg (25.7-33.7); MCHC 33.4 g/dl (32.0-36.0); MEAN CELL VOLUME 87.5 fl (80-96); MEAN PLT VOLUME 8.1 fl (7.5-11.1); PLATELET COUNT 136 10^3/uL (134-434); RBC 3.14 M/mm3 (3.60-5.2); RDW 15.2 % (11.6-15.6)
[2022-02-14 10:21] LABS: ALBUMIN 2.2 g/dl (3.4-5.0); BLOOD UREA NITROGEN 55.1 mg/dL (7-18)
[2022-02-14 10:24] LABS: CREATININE 6.5 mg/dL (0.55-1.3); PHOSPHOROUS 4.5 mg/dL (2.5-4.9)
[2022-02-14 10:25] LABS: BILIRUBIN,TOTAL 0.4 mg/dL (0.2-1)
[2022-02-14 10:27] LABS: TOT PROT 5.7 g/dl (6.4-8.2)
[2022-02-14 10:28] LABS: CALCIUM 8.8 mg/dL (8.5-10.1)
[2022-02-14 10:46] LABS: ANISOCYTOSIS 1+; MACROCYTOSIS 0; PLATELET ESTIMATE DECREASED
[2022-02-14 15:00] VITALS: BMI 36.3
[2022-02-14] MEDS: MELATONIN 5 MG TABLETS PO SCH (21:39)
[2022-02-14] MEDS: LIDOCAINE PATCH REMOVAL MC SCH (21:40)
[2022-02-15] MEDS: PIPERACILLIN/TAZOB 2.25 GM 2.25 GM in DEXTROSE 5%-WATER - 50 ML IVPB SCH ×3 (01:33→17:24)
[2022-02-15] MEDS: oxyCODONE HCL 5 MG TABLET PO PRN ×3 (06:33→21:55)
[2022-02-15] MEDS: HEPARIN NA (PORCINE) 5,000 UNITS/ML 1ML VIAL SQ SCH ×3 (06:33→21:56)
[2022-02-15] MEDS: INSULIN SLIDING SCALE (NOVOLOG) 1 VIAL SQ SCH ×4 (06:47→23:00)
[2022-02-15] MEDS: DEXTROSE 5%-0.45% SALINE 1,000 ML IV SCH ×2 (07:31→21:54)
[2022-02-15] MEDS: VENLAFAXINE HCL 75 MG E.R. CAPSULES PO SCH (08:59)
[2022-02-15] MEDS: levETIRAcetam 500 MG TABLET (FP) PO SCH ×2 (08:59→21:55)
[2022-02-15] MEDS: CLOPIDOGREL BISULFATE 75 MG TABLET (FP) PO SCH (08:59)
[2022-02-15] MEDS: PANTOPRAZOLE 20 MG TABLET PO SCH (08:59)
[2022-02-15] MEDS: LIDOCAINE 5% TOPICAL PATCH TP SCH (08:59)
[2022-02-15] MEDS: CALCIUM ACETATE 667 MG CAPSULE (FP) PO SCH ×2 (08:59→11:56)
[2022-02-15 09:44] LABS: CALCIUM 9.1 mg/dL (8.5-10.1)
[2022-02-15 09:45] LABS: ALBUMIN 2.4 g/dl (3.4-5.0)
[2022-02-15 09:47] LABS: PHOSPHOROUS 4.1 mg/dL (2.5-4.9)
[2022-02-15 09:48] LABS: CREATININE 5.9 mg/dL (0.55-1.3)
[2022-02-15 09:49] LABS: BILIRUBIN,TOTAL 0.5 mg/dL (0.2-1)
[2022-02-15] MEDS ORDERED: VANCOMYCIN/WATER FOR INJ (PEG) 1,000 MG/200 ML BAG IVPB ONE (11:38)
[2022-02-15] MEDS: MELATONIN 5 MG TABLETS PO SCH (21:56)
[2022-02-15] MEDS: LIDOCAINE PATCH REMOVAL MC SCH (21:56)
[2022-02-16] MEDS: PIPERACILLIN/TAZOB 2.25 GM 2.25 GM in DEXTROSE 5%-WATER - 50 ML IVPB SCH ×2 (01:50→10:08)
[2022-02-16] MEDS: HEPARIN NA (PORCINE) 5,000 UNITS/ML 1ML VIAL SQ SCH ×2 (06:30→13:56)
[2022-02-16] MEDS: INSULIN SLIDING SCALE (NOVOLOG) 1 VIAL SQ SCH ×4 (06:46→23:40)
[2022-02-16] MEDS: oxyCODONE HCL 5 MG TABLET PO PRN ×2 (08:21→18:27)
[2022-02-16] MEDS: VENLAFAXINE HCL 75 MG E.R. CAPSULES PO SCH (10:07)
[2022-02-16] MEDS: PANTOPRAZOLE 20 MG TABLET PO SCH (10:07)
[2022-02-16] MEDS: CLOPIDOGREL BISULFATE 75 MG TABLET (FP) PO SCH (10:07)
[2022-02-16] MEDS: levETIRAcetam 500 MG TABLET (FP) PO SCH ×2 (10:07→21:48)
[2022-02-16] MEDS: LIDOCAINE 5% TOPICAL PATCH TP SCH (10:08)
[2022-02-16 12:05] LABS: CHLORIDE 107 mmol/L (98-107); SODIUM 143 mmol/L (136-145)
[2022-02-16 12:21] LABS: ALBUMIN 2.2 g/dl (3.4-5.0); BLOOD UREA NITROGEN 45.6 mg/dL (7-18); CALCIUM 8.7 mg/dL (8.5-10.1); CO2 23 mmol/L (21-32); GLUCOSE,RANDOM 153 mg/dL (74-106)
[2022-02-16 12:22] LABS: BILIRUBIN,TOTAL 0.4 mg/dL (0.2-1); CREATININE 5.6 mg/dL (0.55-1.3); SGOT/AST 16 U/L (15-37); SGPT/ALT 24 U/L (13-61)
[2022-02-16 12:23] LABS: TOT PROT 5.5 g/dl (6.4-8.2)
[2022-02-16 12:24] LABS: ALK PHOS 40 U/L (45-117); ANION GAP 13 MMOL/L (8-16)
[2022-02-16] MEDS ORDERED: POTASSIUM CHLORIDE TABS 20 MEQ TABLET.ER (FP) PO ONE (16:30)
[2022-02-16] MEDS ORDERED: KCL 10 MEQ IVPB 10 MEQ/100 ML INFUS.BAG IVPB SCH (16:45)
[2022-02-16] MEDS: D5-1/2NS+10 MEQ KCL - 10 MEQ/1,000 ML INFUS.BAG IV SCH (17:09)
[2022-02-16] MEDS: LIDOCAINE PATCH REMOVAL MC SCH (21:48)
[2022-02-16] MEDS: MELATONIN 5 MG TABLETS PO SCH (21:48)
[2022-02-16] MEDS: ACETAMINOPHEN 650 MG/20.3 ML ORAL SOLUTION (CUPS) PO PRN (21:49)
[2022-02-17] MEDS: oxyCODONE HCL 5 MG TABLET PO PRN ×3 (06:42→22:03)
[2022-02-17] MEDS ORDERED: INSULIN (NOVOLOG) ASPART 100 UNITS/ML 10ML VIAL ONE ×2 (08:05→21:18)
[2022-02-17] MEDS: INSULIN SLIDING SCALE (NOVOLOG) 1 VIAL SQ SCH ×4 (08:15→21:54)
[2022-02-17] MEDS: D5-1/2NS+10 MEQ KCL - 10 MEQ/1,000 ML INFUS.BAG IV SCH ×2 (09:00→19:21)
[2022-02-17] MEDS: PANTOPRAZOLE 20 MG TABLET PO SCH (10:15)
[2022-02-17] MEDS: CLOPIDOGREL BISULFATE 75 MG TABLET (FP) PO SCH (10:15)
[2022-02-17] MEDS: VENLAFAXINE HCL 75 MG E.R. CAPSULES PO SCH (10:15)
[2022-02-17] MEDS: levETIRAcetam 500 MG TABLET (FP) PO SCH ×2 (10:15→21:54)
[2022-02-17] MEDS: LIDOCAINE 5% TOPICAL PATCH TP SCH (10:15)
[2022-02-17 13:12] LABS: CALCIUM 8.9 mg/dL (8.5-10.1)
[2022-02-17 13:13] LABS: BLOOD UREA NITROGEN 38.8 mg/dL (7-18)
[2022-02-17] MEDS ORDERED: POTASSIUM CHLORIDE TABS 20 MEQ TABLET.ER (FP) PO ONE (15:28)
[2022-02-17] MEDS: MELATONIN 5 MG TABLETS PO SCH (21:54)
[2022-02-17] MEDS: LIDOCAINE PATCH REMOVAL MC SCH (21:59)
[2022-02-18] MEDS: ACETAMINOPHEN 650 MG/20.3 ML ORAL SOLUTION (CUPS) PO PRN ×2 (02:00→12:02)
[2022-02-18] MEDS: oxyCODONE HCL 5 MG TABLET PO PRN ×2 (07:40→16:54)
[2022-02-18] MEDS: INSULIN SLIDING SCALE (NOVOLOG) 1 VIAL SQ SCH ×4 (08:00→21:46)
[2022-02-18] MEDS: levETIRAcetam 500 MG TABLET (FP) PO SCH ×2 (09:57→21:46)
[2022-02-18] MEDS: PANTOPRAZOLE 20 MG TABLET PO SCH (09:58)
[2022-02-18] MEDS: VENLAFAXINE HCL 75 MG E.R. CAPSULES PO SCH (09:58)
[2022-02-18] MEDS: LIDOCAINE 5% TOPICAL PATCH TP SCH (09:58)
[2022-02-18] MEDS: CLOPIDOGREL BISULFATE 75 MG TABLET (FP) PO SCH (09:58)
[2022-02-18 10:31] LABS: CALCIUM 8.5 mg/dL (8.5-10.1)
[2022-02-18 10:35] LABS: CREATININE 4.6 mg/dL (0.55-1.3)
[2022-02-18] MEDS: D5-1/2NS+10 MEQ KCL - 10 MEQ/1,000 ML INFUS.BAG IV SCH ×2 (15:01→17:37)
[2022-02-18] MEDS: MELATONIN 5 MG TABLETS PO SCH (21:46)
[2022-02-18] MEDS: LIDOCAINE PATCH REMOVAL MC SCH (21:46)
[2022-02-19] MEDS: ACETAMINOPHEN 650 MG/20.3 ML ORAL SOLUTION (CUPS) PO PRN (01:32)
[2022-02-19] MEDS ORDERED: MELATONIN 5 MG TABLETS PO ONE (04:05)
[2022-02-19] MEDS ORDERED: ACETAMINOPHEN 1000 MG/100 ML BAG IVPB ONE (04:05)
[2022-02-19] MEDS: INSULIN SLIDING SCALE (NOVOLOG) 1 VIAL SQ SCH ×2 (07:45→12:09)
[2022-02-19] MEDS: levETIRAcetam 500 MG TABLET (FP) PO SCH (10:30)
[2022-02-19] MEDS: CLOPIDOGREL BISULFATE 75 MG TABLET (FP) PO SCH (10:30)
[2022-02-19] MEDS: VENLAFAXINE HCL 75 MG E.R. CAPSULES PO SCH (10:30)
[2022-02-19] MEDS: PANTOPRAZOLE 20 MG TABLET PO SCH (10:30)
[2022-02-19] MEDS: oxyCODONE HCL 5 MG TABLET PO PRN (10:36)
[2022-02-19] MEDS: LIDOCAINE 5% TOPICAL PATCH TP SCH (10:38)
[2022-02-19 10:54] VITALS: BP 114/60; PULSE 80; RESP 15; TEMP 98.3
[2022-02-19 13:30] LABS: BLOOD UREA NITROGEN 31.4 mg/dL (7-18)
[2022-02-19 13:33] LABS: CREATININE 4.1 mg/dL (0.55-1.3)
== END 2022-02-19 12:44 | DRG 871 ==
LOC: JER 11:48 → JERBED 18:03 → JICU 21:48 → J8W 02-09 14:38
PROVIDERS: ADMIT Internal Medicine Pulmonary Disease; ATTEND Internal Medicine
DX: A41.89 Other specified sepsis (principal); G93.41 Metabolic encephalopathy; R65.21 Severe sepsis with septic shock; N17.0 Acute kidney failure with tubular necrosis; E87.20 Acidosis, unspecified; N39.0 Urinary tract infection, site not specified; K86.0 Alcohol-induced chronic pancreatitis; F11.20 Opioid dependence, uncomplicated; I10 Essential (primary) hypertension; I25.10 Atherosclerotic heart disease of native coronary artery without angina pectoris; E78.5 Hyperlipidemia, unspecified; K21.9 Gastro-esophageal reflux disease without esophagitis; G40.909 Epilepsy, unspecified, not intractable, without status epilepticus; N20.0 Calculus of kidney; F41.8 Other specified anxiety disorders; I25.2 Old myocardial infarction; E87.5 Hyperkalemia; R09.02 Hypoxemia; R74.8 Abnormal levels of other serum enzymes; R10.84 Generalized abdominal pain; Z85.038 Personal history of other malignant neoplasm of large intestine; E66.9 Obesity, unspecified; Z68.33 Body mass index [BMI] 33.0-33.9, adult; Z96.643 Presence of artificial hip joint, bilateral; Z86.19 Personal history of other infectious and parasitic diseases
CPT/HCPCS: 0241U-QW; 36415; 36600; 70450-TC; 71045-TC-FY; 72100-TC-FY; 74176-TC; 76775-TC; 76937; 80048; 80053; 80061; 80076; 80307; 81003; 82150; 82330; 82436; 82570; 82803; 82962; 83605; 83615; 83625; 83690; 83735; 83930; 84100; 84133; 84300; 84484; 85025; 85027; 85610; 85730; 86140; 86704; 87040; 87086; 87186; 87340; 87517; 87522; 93005; 93010; 93306-TC; 93308; 97116-GP; 97161-GP; 99285-25; C9803-CS; G0480; J1644; U0003; U0005